=== PATIENT | female | born 1970 | race Caucasian/White ===

== ENCOUNTER 2020-09-16 14:44 | Outpatient (REF) | payer OTHER, SELFPAY ==
--- NOTE | ~2020-09-16 | MM_ITS ---
EXAMINATION: MM SCREENING DIGITAL BREAST TOMOSYNTHESIS, BILATERAL CLINICAL INFORMATION: Screening. Asymptomatic. The lifetime risk of breast cancer based on the Tyrer-Cuzick Model is 7%. COMPARISON: Mammography: 07/12/2019 and 02/14/2017. TECHNIQUE: Digital breast tomosynthesis is performed in both the craniocaudal and mediolateral oblique views along with computer-aided detection (CAD). Synthesized 2D images are generated from the tomosynthesis. FINDINGS: The breasts are extremely dense, which lowers the sensitivity of mammography (ACR BI-RADS breast composition Category d). There are no significant masses, abnormal calcifications, or other abnormalities. A questionable region of architectural distortion about the superior aspect deep left breast on mediolateral oblique projection is shown on tomosynthesis views to represent superimposition of fibroglandular tissue. MM/MM tomosynthesis screening BI IMPRESSION: There are no significant changes from prior study. ASSESSMENT: BI-RADS 1: Negative. RECOMMENDATION: Routine annual mammography screening. This patient's information was entered into a reminder system with a target due date for their next mammogram.
== END 2020-09-16 14:45 | disposition home or self-care (01) ==
LOC: HO.MAMMO 14:44
PROVIDERS: PCP Internal Medicine; Visit Provider Internal Medicine
DX: Z12.31 Encounter for screening mammogram for malignant neoplasm of breast (principal)
CPT/HCPCS: 77063; 77067

== ENCOUNTER 2021-02-23 10:07 | Outpatient (REF) | payer SELFPAY ==
[2021-02-23 10:55] LABS: Imm Gran Abs Auto 0.01 X10*3/uL (0.00-0.03); Imm Gran Pct Auto 0.2 % (0.0-0.4)
[2021-02-23 10:57] LABS: Basophils Percent Auto 0.2 % (0-2); Eosinophils Absolute Auto 0.2 X10*3/uL (0.0-0.4); Eosinophils Percent Auto 4.2 % (0-4); Hematocrit 38.7 % (37-47); Hemoglobin 11.8 g/dl (12.0-16.0); Lymphocytes Absolute Auto 1.1 X10*3/uL (1.2-4.9); Lymphocytes Percent Auto 22.4 % (20-40); Mean Corpuscular HGB Conc 30.5 g/dl (31.0-35.0); Mean Corpuscular Hemoglobin 20.4 pg (27.0-33.0); Mean Corpuscular Volume 66.8 fL (80-98); Mean Platelet Volume 9.7 fL (9.4-12.3); Monocytes Absolute Auto 0.4 X10*3/uL (0.1-1.2); Monocytes Percent Auto 7.3 % (2-11); Neutrophils Absolute Auto 3.3 X10*3/uL (2.0-8.3); Neutrophils Percent Auto 65.7 % (45-73); Platelet Count 203 X10*3/uL (160-400); Red Blood Count 5.79 X10*6/uL (4.20-5.50); Red Cell Distribution Width 15.3 % (11.0-16.0)
[2021-02-23 11:20] LABS: Alanine Aminotransferase 20 U/L (0-31); Albumin Level 4.3 g/dL (3.5-5.0); Alkaline Phosphatase 68 U/L (39-117); Anion Gap 10 (12-20); Aspartate Amino Transferase 18 U/L (5-31); Bilirubin Total 0.4 mg/dL (0.0-1.0); Blood Urea Nitrogen 8 mg/dL (9-16); Carbon Dioxide 27 mmol/L (22-29); Chloride 108 mmol/L (96-108); Cholesterol 183 mg/dL; Estimated Glomerular Filt Rate > 60; Glucose Fasting 104 mg/dL (60-99); HDL Cholesterol 52 mg/dL; LDL Cholesterol Calculated 117 mg/dl; Potassium 4.4 mmol/L (3.3-5.1); Sodium 141 mmol/L (135-145); Total Protein 7.3 g/dL (6.5-8.0); Triglycerides 71 mg/dL
[2021-02-23 11:41] LABS: Appearance Urine CLEAR; Color Urine YELLOW; Glucose Urine UA NEG (NEG); Leukocyte Esterase Urine NEG (NEG); Nitrite Urine NEG (NEG); Specific Gravity - Urine <= 1.005 (1.005-1.025); Urine Blood NEG (NEG); Urine Ketones NEG (NEG); Urine Protein NEG (NEG-TRACE)
[2021-02-23 11:42] LABS: TSH reflex Free T4 0.62 uIU/mL (0.32-4.0); Vitamin D 25-OH Total 31.1 ng/mL (>30)
[2021-02-23 11:58] LABS: Folate > 20.0 ng/mL (> or = 4.0); Vitamin B12 1158 pg/mL (200-900)
== END 2021-02-23 10:08 | disposition home or self-care (01) ==
LOC: HO.LAB 10:07
PROVIDERS: PCP Internal Medicine; Visit Provider Internal Medicine
DX: Z00.00 Encounter for general adult medical examination without abnormal findings (principal); R20.0 Anesthesia of skin; E55.9 Vitamin D deficiency, unspecified
CPT/HCPCS: 36415; 80053; 80061; 81003; 82306; 82607; 82746; 84443; 85025

== ENCOUNTER 2021-09-28 07:22 | Outpatient (REF) | payer OTHER, SELFPAY ==
--- NOTE | ~2021-09-28 | MM_ITS ---
EXAMINATION: MM SCREENING DIGITAL BREAST TOMOSYNTHESIS, BILATERAL CLINICAL INFORMATION: Screening. Asymptomatic. The lifetime risk of breast cancer based on the Tyrer-Cuzick Model is 7%. COMPARISON: Mammography: 09/16/2020, 07/12/2019, 02/14/2017 (baseline) TECHNIQUE: Digital breast tomosynthesis is performed in both the craniocaudal and mediolateral oblique views along with computer-aided detection (CAD). Synthesized 2D images are generated from the tomosynthesis. FINDINGS: The breasts are heterogeneously dense, which may obscure small masses (ACR BI-RADS breast composition Category c). There are no significant masses, abnormal calcifications, or other abnormalities. No developing density or architectural abnormality. The axilla are unremarkable. The skin contours are smooth. MM/MM tomosynthesis screening BI IMPRESSION: No mammographic evidence of malignancy. ASSESSMENT: BI-RADS 1: Negative RECOMMENDATION: Routine annual mammography screening. This patient's information was entered into a reminder system with a target due date for their next mammogram.
== END 2021-09-28 07:23 | disposition home or self-care (01) ==
LOC: HO.MAMMO 07:22
PROVIDERS: Visit Provider Internal Medicine
DX: Z12.31 Encounter for screening mammogram for malignant neoplasm of breast (principal)
CPT/HCPCS: 77063; 77067

== ENCOUNTER → 2022-01-18 08:34 | Outpatient (BNVA) | payer OTHER, SELFPAY | PROVIDERS: PCP Internal Medicine; Visit Provider Physician Assistant | DX: Z01.818 Encounter for other preprocedural examination (principal); K52.9 Noninfective gastroenteritis and colitis, unspecified; K59.09 Other constipation; D64.9 Anemia, unspecified | CPT/HCPCS: 99202 ==

== ENCOUNTER 2022-03-08 09:26 | Outpatient (REF) | payer OTHER, SELFPAY ==
[2022-03-08 09:40] LABS: MANUAL DIFF FLAG NO
[2022-03-08 10:09] LABS: Appearance Urine Clear; Color Urine Yellow; Glucose Urine UA Negative (Negative); Leukocyte Esterase Urine Trace (Negative); Nitrite Urine Negative (Negative); PH 7.5 (5.0-9.0); UMIC TRIGGER UACC YES; Urine Blood Negative (Negative); Urine Ketones Negative (Negative); Urine Protein Negative (Neg-Trace)
[2022-03-08 10:11] LABS: Bacteria Urine Trace (None Seen); Hyaline Casts Urine 0-2 /LPF (0-2); Squamous Epithelial Cell Urine 0-2 /HPF (0-2); WBC Urine 0-5 /HPF (0-5)
[2022-03-08 10:14] LABS: Basophils Percent Auto 0.6 % (0-2); Eosinophils Absolute Auto 0.3 X10*3/uL (0.0-0.4); Eosinophils Percent Auto 5.6 % (0-4); Hematocrit 38.6 % (37.0-47.0); Hemoglobin 11.8 g/dl (12.0-16.0); Imm Gran Abs Auto 0.01 X10*3/uL (0.00-0.03); Imm Gran Pct Auto 0.2 % (0.0-0.4); Lymphocytes Absolute Auto 1.2 X10*3/uL (1.2-4.9); Lymphocytes Percent Auto 24.9 % (20-40); Mean Corpuscular HGB Conc 30.6 g/dl (31.0-35.0); Mean Corpuscular Hemoglobin 20.8 pg (27.0-33.0); Mean Corpuscular Volume 68.1 fL (80.0-98.0); Mean Platelet Volume 10.4 fL (9.4-12.3); Monocytes Absolute Auto 0.3 X10*3/uL (0.1-1.2); Neutrophils Percent Auto 61.7 % (45-73); Platelet Count 270 X10*3/uL (160-400); Red Blood Count 5.67 X10*6/uL (4.20-5.50); Red Cell Distribution Width 15.8 % (11.0-16.0); White Blood Count 4.9 X10*3/uL (4.8-10.8)
[2022-03-08 10:22] LABS: Estimated Average Glucose 117 mg/dL; Hemoglobin A1c % 5.7 %
[2022-03-08 10:35] LABS: Alanine Aminotransferase 17 U/L (0-31); Albumin Level 4.3 g/dL (3.5-5.0); Alkaline Phosphatase 57 U/L (39-117); Anion Gap 12 (12-20); Aspartate Amino Transferase 19 U/L (5-31); Bilirubin Total 0.4 mg/dL (0.0-1.0); Blood Urea Nitrogen 9 mg/dL (9-16); Carbon Dioxide 27 mmol/L (22-29); Chloride 107 mmol/L (96-108); Cholesterol 156 mg/dL; Estimated Glomerular Filt Rate > 60; Glucose Fasting 104 mg/dL (60-99); HDL Cholesterol 52 mg/dL; Iron 88 mcg/dL (30-160); LDL Cholesterol Calculated 91 mg/dl; Percent Iron Saturation 29 % (15-50); Sodium 141 mmol/L (135-145); Total Iron Binding Capacity 301 mcg/dL (228-428); Total Protein 7.2 g/dL (6.5-8.0); Triglycerides 65 mg/dL; Unsaturated Iron Binding 213 ug/dL
[2022-03-08 10:59] LABS: TSH reflex Free T4 0.82 uIU/mL (0.32-4.0); Vitamin D 25-OH Total 26.6 ng/mL (>30)
== END 2022-03-08 09:27 | disposition home or self-care (01) ==
LOC: HO.LAB 09:26
PROVIDERS: PCP Internal Medicine; Visit Provider Internal Medicine
DX: Z00.00 Encounter for general adult medical examination without abnormal findings (principal); R73.01 Impaired fasting glucose; E78.00 Pure hypercholesterolemia, unspecified; E55.9 Vitamin D deficiency, unspecified; D50.9 Iron deficiency anemia, unspecified
CPT/HCPCS: 36415; 80053; 80061; 81001; 82306; 83036; 83540; 84443; 85025

== ENCOUNTER 2022-10-11 07:10 | Day surgery (SDC) | payer OTHER, SELFPAY ==
[2022-05-27 14:10] VITALS: BMI 24.2
--- NOTE | 2022-10-07 14:48 | HO.ANESPROP2 ---
Documented by User: Cydney Baeza NP 10/07/22 14:49 HPI - Anesthesia Eval Consult details Narrative: 51yo F for Upper Endoscopy and Colonoscopy PMFSH Active Problems Active Problems: All Active Problems (Updated 03/08/22 @ 09:20 by Tej Lanza MD) Constipation (Acute) Impaired fasting glucose (Acute) Iron deficiency anemia (Acute) Anemia (Acute) Chronic constipation (Acute) Colon cancer screening (Acute) Numbness of right hand (Acute) Annual physical exam (Acute) Amenorrhea (Acute) Past Medical History Medical History Amenorrhea Constipation Impaired fasting glucose Iron deficiency anemia Mammogram normal (~06/2019) Uterine myoma Family History Family History Other No significant family history Surgical History Surgical History Hx of myomectomy (~2014) Social History Social History Household Members Other:: Housing: House Alcohol intake: never Patient Tobacco Use Status: Never used Tobacco Second Hand Smoke Exposure: No Are you DNR?: No Advance Directives: No Advance Directives Information Provided: Yes Nutrition Risks: No Nutritional Risk service: No Current occupational status: employed 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 Cognitive needs: No Hearing needs: No Vision needs: Yes Meds Allergies Allergy/AdvReac Type Severity Reaction Status Date / Time No Known Allergies Allergy Verified 10/11/22 08:22 [No Known Allergies*] Home Medications Medication Instructions Recorded Confirmed Last Taken Type No Known Home Meds 10/11/22 10/11/22 Unknown History Exam Exam Date and Time: October 07, 2022 1448 Height,Weight and Vital Signs: Height 5 ft 6 in Weight 68.039 kg Pertinent Lab Results Pertinent Lab Results: Laboratory Tests 03/08/22 03/08/22 09:38 09:38 WBC 4.9 Hgb 11.8 L Hct 38.6 Plt Count 270 Sodium 141 Potassium 5.0 Chloride 107 Carbon Dioxide 27 BUN 9 Creatinine 0.72 Assessment and Plan Assessment Anesthesia Assessment: Chart Reviewed Documented by User: Mu Templeton MD 10/11/22 17:12 PMFSH Past Medical History Medical History Amenorrhea Constipation Impaired fasting glucose Iron deficiency anemia Mammogram normal (~06/2019) Uterine myoma Functional capacity: independent ambulation Family History Family History Other No significant family history Family history of problems with anesthesia: No Surgical History Surgical History Hx of myomectomy (~2014) History of Problems with Anesthesia: No Social History Social History Household Members Other:: Housing: House Alcohol intake: never Patient Tobacco Use Status: Never used Tobacco Second Hand Smoke Exposure: No Are you DNR?: No Advance Directives: No Advance Directives Information Provided: Yes Nutrition Risks: No Nutritional Risk service: No Current occupational status: employed 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 Cognitive needs: No Hearing needs: No Vision needs: Yes Meds Allergies Allergy/AdvReac Type Severity Reaction Status Date / Time No Known Allergies Allergy Verified 10/11/22 08:22 [No Known Allergies*] Home Medications Medication Instructions Recorded Confirmed Last Taken Type No Known Home Meds 10/11/22 10/11/22 Unknown History Exam Airway Mallampati Class: IV TM Dist: >3cm Neck ROM: Full Loose/Missing/Broken Teeth: Yes Assessment and Plan Assessment Anesthesia Assessment: Anesthesia Plan Discussed Final Anesthetic Review Family History of Problems with Anesthesia: No History of Problems with Anesthesia: No NPO: Yes ASA Class: II Final Preanesthetic Review: Meds/Allgs Chart Reviewed, Consent Obtained/Reviewed and Anes Risks/Benef Reviewed Patient Risk: Intermediate Procedure Risk: Intermediate Anesthetic Plan Anesthetic Plan: MAC: and Agree w/ Assess. and Plan Disposition: Standard PACU
[2022-10-07 15:39] VITALS: BMI 24.7
--- NOTE | 2022-10-11 07:34 | MHC.SHP ---
Pre-Procedural Eval Section A Date of Service: 10/11/22 The patient is an INPATIENT: No The History & Physical has been completed within 30 days and I have reviewed it.: No Section B Chief Complaint: screening, anemia,constipation, Relevant Family History (Specify if Yes): No Relevant Social History: None Present Medications: see Short Stay Collaborative assessment Medical History: Significant History (Amenorrhea Mammogram normal (~06/2019) Uterine myoma) History of Previous Operations: Relevant previous surgery/procedure and date(s) (History of myomectomy - 2014) Allergies: Allergies Allergy/AdvReac Type Severity Reaction Status Date / Time No Known Allergies Allergy Verified 03/08/22 09:00 [No Known Allergies*] Review of Systems Sugical H&P ROS: Negative: Constitution, Cardiovascular, Respiratory and Gastrointestinal Exam Surgical H&P Exam: Normal: Heart, Normal: Lungs, Normal: Extremities and Normal: Abdomen Plan Diagnosis/Plan: Unchanged I have reviewed the history and physical and performed a pertinent physical examination on my patient. No changes have occurred unless specified. Time Spent With Patient Time: Total time managing care of this patient today ____ minutes.
[2022-10-11 07:36] LABS: UPreg QC Valid YES; Urine Pregnancy NEGATIVE (NEGATIVE)
[2022-10-11 07:46] VITALS: BP 140/67; PULSE 65; RESP 18; TEMP 36.7; O2SAT 98
[2022-10-11] MEDS: Lactated Ringers 1,000 ML 100 ML IVCONT (07:48)
--- NOTE | 2022-10-11 08:34 | P.OP_ITS ---
Operative Note Operative Note Date of Service: 10/11/22 Narrative: FLEXIBLE TRANSORAL UPPER GASTROINTESTINAL ENDOSCOPY WITH BIOPSIES AND COLONOSCOPY TILL CECUM WITH BIOPSIES Pre-op diagnosis: screening, constipation, KEDAR Post-op diagnosis: Gastritis, colon polyps, diverticulosis, hemorrhoids? Endoscopist:? Gillian Hurt MD Anesthesia:?MAC UPPER ENDOSCOPY Consent: Indications for the procedure and potential complications of bleeding, perforation, reaction to medications and missed diagnosis were discussed with the patient and informed consent was obtained. Instrument: Olympus GIF H 190 mid size upper endoscope Monitoring: Vital signs and clinical assessment, continuous EKG monitoring, Pulse oximetry, Carbon Dioxide monitoring and blood pressure monitoring were done throughout the procedure. Procedure: The patient was placed in the left lateral decubitis position and pre-procedure medications were administered and a bite block was placed. The endoscope was inserted into the mouth and advanced under direct vision to the third part of duodenum. A careful inspection was made as the upper endoscope was withdrawn including a retroflexed examination of the proximal stomach; Findings and interventions are described below. Findings: Larynx: Normal Esophagus: GE junction at 36 cms. No esophagitis or Nelson's. Stomach: Moderate diffuse gastric erythema. Biopsies were obtained from the antr um and gastric body. Grade 2 flap valve on retroflexed examination of the cardia. Duodenum: Normal bulb and descending duodenum. Biopsies were obtained from 3rd part of duodenum to check for celiac sprue. Intervention: Biopsies as noted above COLONOSCOPY PROCEDURE NOTE Consent: Indications for the procedure and potential complications of bleeding, perforation, reaction to medications and missed diagnosis were discussed with the patient and informed consent was obtained. Instrument: Olympus PCF H 190 L variable stiffness pediatric colonoscope Monitoring: Vital signs and clinical assessment, intermittent blood pressure monitoring, continuous EKG monitoring, Pulse oximetry and Carbon Dioxide monitoring were done throughout the procedure. Colon withdrawl time was 12 minutes. Procedure: The patient was placed in the left lateral decubitis position and pre-procedure medications were administered. After a digital rectal examination of the ano-rectum, the video colonoscope was inserted into the rectum and advanced through the colon to the cecum. The colonoscope was slowly withdrawn in a retrograde panoramic fashion and the colon mucosa was carefully examined including a retroflexed view of the rectum. Findings and interventions are described below. Procedure Difficulty: : Without difficulty Findings: Terminal Ileum: Not evaluated Cecum: Normal Ascending Colon: Normal Transverse Colon: Normal Descending Colon: A few 4-7 mm diminutive appearing polyps in the left colon - two removed by cold biopsy Sigmoid Colon: Moderate diverticulosis Rectum: Normal Ano-rectum: Moderate internal hemorrhoids Colon preparation: Excellent Impression and Post Procedure Diagnosis: Endoscopy Findings: STOMACH: Moderate diffuse gastritis DUODENUM: Normal - biopsied to check for celiac sprue Colonoscopy Findings: Two diminutive appearing polyps removed Moderate diverticulosis seen in the sigmoid colon Moderate hemorrhoids on retroflexed exam. Plan: Await pathology results Patient has an appointment on 10/25/22 in the [facility] with ERAN Rodney . Repeat Colonoscopy interval based on path results - in 5 years if polyps are adenomatous and 10 years if polyps are hyperplastic. Above findings were reviewed with the patient and colon polyps and diverticulosis handouts were given in the discharge area BIOPSIES SHOWED: A.? Small bowel, biopsy:? Duodenal mucosa within normal limits; negative for celiac disease. B.? Stomach, antrum, biopsy: - Antral-type mucosa with moderate chronic active inflammation. - Rare forms suspicious for H pylori identified. C.? Stomach, body, biopsy: - Oxyntic mucosa with moderate chronic, focally active, inflammation. - Positive for H pylori. D.? Colon, descending, polypectomies (2):? Hyperplastic mucosal polyps.
[2022-10-11 09:18] VITALS: BP 112/68; PULSE 70; RESP 16; TEMP 36.6; O2SAT 97
[2022-10-11 09:33] VITALS: BP 131/77; PULSE 76; RESP 16; TEMP 36.6; O2SAT 99
== END 2022-10-11 10:01 | disposition home or self-care (01) ==
PROVIDERS: Anesthesiology; PCP Internal Medicine; Visit Provider Internal Medicine Gastroenterology
PROC: (CPT 45380; principal; 2022-10-11 08:30)
DX: Z12.11 Encounter for screening for malignant neoplasm of colon (principal); K63.5 Polyp of colon; K57.30 Diverticulosis of large intestine without perforation or abscess without bleeding; K64.8 Other hemorrhoids; K59.09 Other constipation; D50.9 Iron deficiency anemia, unspecified; K29.50 Unspecified chronic gastritis without bleeding; B96.81 Helicobacter pylori [H. pylori] as the cause of diseases classified elsewhere
CPT/HCPCS: 45380; 43239; 81025; 88305; 88342

== ENCOUNTER → 2022-10-25 07:37 | Outpatient (BNVA) | payer OTHER, SELFPAY | PROVIDERS: PCP Internal Medicine; Referring Provider Internal Medicine; Visit Provider Physician Assistant | DX: K29.70 Gastritis, unspecified, without bleeding (principal); B96.81 Helicobacter pylori [H. pylori] as the cause of diseases classified elsewhere; K63.5 Polyp of colon; K57.30 Diverticulosis of large intestine without perforation or abscess without bleeding | CPT/HCPCS: 99212 ==

== ENCOUNTER 2022-11-15 10:13 | Outpatient (REF) | payer OTHER, SELFPAY ==
--- NOTE | ~2022-11-15 | MM_ITS ---
EXAMINATION: MM SCREENING DIGITAL BREAST TOMOSYNTHESIS, BILATERAL CLINICAL INFORMATION: Screening. Asymptomatic. The lifetime risk of breast cancer based on the Tyrer-Cuzick Model is 7%. COMPARISON: Mammography: 09/28/2021, 09/16/2020, 07/12/2019 TECHNIQUE: Digital breast tomosynthesis is performed in both the craniocaudal and mediolateral oblique views along with computer-aided detection (CAD). Synthesized 2D images are generated from the tomosynthesis. FINDINGS: The breasts are heterogeneously dense, which may obscure small masses (ACR BI-RADS breast composition Category c). There are no significant masses, abnormal calcifications, or other abnormalities. Parenchymal pattern is similar to prior studies. There is no developing density or architectural abnormality. The axilla and skin contours are unremarkable. No significant changes. MM/MM tomosynthesis screening BI IMPRESSION: No mammographic evidence of malignancy. ASSESSMENT: BI-RADS 1: Negative RECOMMENDATION: Routine annual mammography screening. This patient's information was entered into a reminder system with a target due date for their next mammogram.
== END 2022-11-15 10:14 | disposition home or self-care (01) ==
LOC: HO.MAMMO 10:13
PROVIDERS: PCP Internal Medicine; Visit Provider Internal Medicine
DX: Z12.31 Encounter for screening mammogram for malignant neoplasm of breast (principal)
CPT/HCPCS: 77063; 77067

== ENCOUNTER 2022-11-29 10:12 | Outpatient (AMB) | payer OTHER, SELFPAY ==
--- NOTE | 2022-11-29 11:25 | AM.OFFVISNUR ---
Intake Intake Visit Reasons: test to cure Allergies No Known Allergies [No Known Allergies*] Allergy (Verified 10/25/22 07:47) Nursing Note Patient presents for collection of?H?Pylori?breath test. Patient has been fasting for 1 hour (nothing to eat, drink, no chewing gum or smoking) has not taken any antacid medication for at least 2 weeks and has no allergies to artificial sweeteners.?? Coding Level of Care Code Established Pt Est Pt Level 1 (18480) Patient Type Established Medical Decision Making Straight Forward Diagnoses Assessment & Plan Assessment & Plan Plan Patient presents for collection of?H?Pylori?breath test. Patient has been fasting for 1 hour (nothing to eat, drink, no chewing gum or smoking) has not taken any antacid medication for at least 2 weeks and has no allergies to artificial sweeteners.???This test checks for an overgrowth of bacteria in your stomach. We all have bacteria but some may have more than others. It is treatable. if the test comes back negative there is nothing else to do. If the test result is positive we will treat you with 2 antibiotics and a medication to decrease the acid in your stomach (PPI) for 2 weeks. Two weeks after you have completed the treatment we will retest you to make sure the overgrowth has resolved. Patient Instructions: Process for specimen collection and reason for testing was explained to the patient. Specimen collection. Patient instructed to take a deep breath and then exhale into the blue bag, filling it up as much as possible. Patient instructed to drink a mixture of water and the artificial sweetener with a straw. A 15 minute wait period was observed. Patient instructed to take a deep breath and then exhale into the pink bag, filling it up as much as possible.??
== END 2022-11-29 11:25 | disposition home or self-care (01) ==
PROVIDERS: PCP Internal Medicine; Visit Provider Physician Assistant
DX: Z00.00 Encounter for general adult medical examination without abnormal findings (principal)

== ENCOUNTER → 2022-11-29 10:12 | Outpatient (BNVA) | payer OTHER, SELFPAY | PROVIDERS: PCP Internal Medicine; Visit Provider Physician Assistant | DX: Z11.0 Encounter for screening for intestinal infectious diseases (principal) | CPT/HCPCS: 99211 ==

== ENCOUNTER 2022-11-29 15:29 | Outpatient (REF) | payer OTHER, SELFPAY ==
[2022-12-05 12:41] LABS: H Pylori Breath Test Negative (Negative)
== END 2022-11-29 15:30 | disposition home or self-care (01) ==
LOC: HO.LNP 15:29
PROVIDERS: Visit Provider Physician Assistant
DX: A04.8 Other specified bacterial intestinal infections (principal)
CPT/HCPCS: 83013

== ENCOUNTER 2023-03-14 09:29 | Outpatient (AMB) | payer OTHER, SELFPAY ==
[2023-03-14 09:34] VITALS: BP 120/82; PULSE 66; O2SAT 99; BMI 25.7
--- NOTE | 2023-03-14 09:34 | MHC.PC.OV ---
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 Accompanied by: Self / Same As Patient Allergies No Known Allergies [No Known Allergies*] Allergy (Verified 03/14/23 09:56) Medication List - Last Reconciled 03/14/23 by Tej Lanza MD Tobacco use date assessed: 03/14/23 Dental Screening Dental Screen Date: 03/14/23 Did you have a dental visit in the last 12 months?: No Did you have a dental problem in the last 6 months where you did not have access to dental care?: No Was dental information given to patient?: No HPI annual PE HPI Details Patient comes in today for her annual physical examination States that she feels okay except for recurrent numbness of both hands and feet, which she states she has been experiencing for the past 6 months or so She denies any wrist or joint pains; denies any weakness of her hands or feet, and states that the above symptoms occur randomly throughout the day Reports also occasional brief spells of mild weakness recently and noticed that she would feel better as soon as she ate some chocolate - is wondering if she has any problems with her blood sugar and would like to get some labs done to check this out further She denies any headaches or dizziness Denies any chest pains, no SOB No nausea/vomiting, no abdominal pain No change in bowel habits noted Denies any acute urinary symptoms Had her screening colonoscopy done by Dr. Hurt on 10/11/2022 - (+) hyperplastic polyps; recommend repeat colonoscopy in 10 years although she states that her younger brother was just diagnosed with colon cancer at 46 y/o a few months ago (mid-2022) so is wondering if she will need to get a repeat colonoscopy sooner than 10 years due to (+) family Hx She did test positive for H. pylori back in September 2022 on her EGD with Bx and she was Tx with the H. pylori regimen Had her annual mammogram last done in October 2022 Has not had steel box toe inserter exam/pap smear done in a few years now Would also like to get her flu shot today Adds that she has not had her menstrual period in about 3 months now - is probably going into menopause soon [facility] Medical History (Updated 03/14/23 @ 10:35 by Tej Lanza MD) Overweight (BMI 25.0-29.9) Helicobacter pylori gastritis Constipation Impaired fasting glucose Iron deficiency anemia Mammogram normal (~06/2019) Uterine myoma Amenorrhea Surgical History (Updated 03/14/23 @ 10:16 by Tej Lanza MD) History of esophagogastroduodenoscopy (EGD) Hx of colonoscopy Hx of myomectomy (~2014) Family History Other No significant family history Social History Household Members Other:: Housing: House Alcohol intake: never Patient Tobacco Use Status: Never used Tobacco Second Hand Smoke Exposure: No service: No Current occupational status: employed 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 1. Little interest or pleasure in doing things: not at all 2. Feeling down, depressed, or hopeless: not at all 3. Trouble falling or staying asleep, or sleeping too much: not at all 4. Feeling tired or having little energy: not at all 5. Poor appetite or overeating: not at all 6. Feeling bad about yourself - or that you are a failure or have let yourself or your family down: not at all 7. Trouble concentrating on things, such as reading the newspaper or watching television: not at all 8. Moving or speaking so slowly that other people could have noticed. Or the opposite - being so fidgety or restless that you have been moving around a lot more than usual: not at all 9. Thoughts that you would be better off or of hurting yourself in some way: not at all Total score: 0 Depression Screening Interpretation: Negative Depression Screening Done: Yes 57464 - PHQ-9 Billing: Yes Source: Developed by Drs. Collin Mireles, Rodney Chawla and colleagues, with an educational alma from [employer]. Thrive Questionnaire Date Thrive assessed: 03/14/23 I am a: Patient What is your living situation today?: I have a steady place to live Within the past 12 months, did the food you bought not last and you didn't have the money to get more?: Never true Within the past 12 months, did you worry whether your food would run out before you got money to buy more?: Never true Do you have trouble paying for medicines?: No Do you have trouble getting transportation to medical appointments?: No Do you have trouble paying your heating and electricity bill?: No Do you have trouble taking care of your child, family member or friend?: No Do you have trouble with day-to-day activities such as bathing, preparing meals, shopping, managing finances, etc.?: No Are you currently unemployed and looking for a job?: No Are you interested in more education?: No Please select the resources that you would like help with: None Currently or been in a relationship where the following occur: no concerns reported AUDIT C Alcohol Use Questionnaire (AUDIT-C) 1. How often do you have a drink containing alcohol?: Never 3. How often do you have six or more drinks on one occasion?: Never Total Score: 0 Score Reviewed/Action Taken: Yes SIMIN-7 AMB Questionnaire SIMIN-7 Date SIMIN - 7 assessed: 03/14/23 Feeling nervous, anxious, or on edge: 0 = Not at all Not being able to stop or control worryin = Not at all Worrying too much about different things: 0 = Not at all Trouble relaxin = Not at all Being so restless that it is hard to sit still: 0 = Not at all Becoming easily annoyed or irritable: 0 = Not at all Feeling afraid as if something awful might happen: 0 = Not at all Total SIMIN-7 score (0-4 normal; 5-9 mild; 10-14 moderate; 15-21 severe): 0 Source: Developed by Drs. Collin Mireles, Rodney Chawla and colleagues, with an educational alma from [employer]. Review of Systems Const Denies chills, Denies fatigue, Denies fever(s), Denies headache(s), Denies malaise and Denies weakness Eyes Denies blurry vision, Denies change in vision, Denies irritation and Denies itchy eyes ENT Denies dysphagia, Denies dizziness, Denies otalgia, Denies headache(s), Denies nasal congestion, Denies neck pain, Denies odynophagia, Denies sinus pain and Denies sore throat Card Denies chest pain, Denies rapid heart rate, Denies irregular heart rhythm, Denies palpitations and Denies dyspnea Resp Denies chest congestion, Denies cough, Denies dyspnea and Denies wheezing GI Denies abdominal pain, Denies bloating, Reports constipation (at times), Denies dysphagia, Denies heartburn, Denies diarrhea, Denies nausea, Denies odynophagia and Denies vomiting Denies hematuria, Denies urinary frequency, Denies dysuria, Denies urinary incontinence and Denies urinary urgency Musc Denies back pain, Denies arthralgias, Denies joint swelling, Denies muscle weakness and Denies neck pain Skin/Breast Denies breast pain, Denies breast mass, Denies change in pigmentation, Denies lesions, Denies rash and Denies unusual bruising Neuro Denies dizziness, Denies headache(s), Reports paresthesias (recurrent, in both hands and feet for past few months) and Denies weakness Psych Denies anxiety and Denies depression Endo Denies fatigue and Denies palpitations Cirilo/Lymph Denies easy bruising Aller/Immun Denies itchy eyes and Denies wheezing Physical exam (Primary Care) Vital Signs: Last Vital Signs Pulse 66 03/14/23 09:34 BP 120/82 03/14/23 09:34 Pulse Ox 99 03/14/23 09:34 Oxygen Delivery Method Room Air 03/14/23 09:34 BMI result Body Mass Index 25.7 Tobacco/Smoking Status: Tobacco use Status Tobacco use date assessed 03/14/23 03/14/23 09:38 Patient Tobacco Use Status Never used Tobacco 03/14/23 09:38 PHQ-9: PHQ-9 Score PHQ-9: Total score 0 03/14/23 09:44 Depression Screening Interpretation: Negative Thrive Assessment: Date of Thrive Assessment Date Thrive assessed 03/14/23 03/14/23 09:38 Currently or been in a relationship where the following occur: no concerns reported Const General: no acute distress, alert and awake Orientation/consciousness: patient oriented x3 HENMT Head: Yes normocephalic and Yes atraumatic Ears: external ears normal, TM's normal bilaterally and EAC's normal General nose exam: No nasal discharge present Face and sinus: Yes normal facial exam and Yes sinuses nontender Teeth and gingiva: dentition normal Throat: Yes posterior oropharynx normal and Yes tonsils normal (no TP congestion) Eyes Eyelids: Yes eyelids normal Conjunctivae: conjunctivae normal Pupils: Equal, round and reactive pupils present EOM: EOMs intact bilaterally Neck Neck: Yes no lymphadenopathy and Yes supple Thyroid: Thyroid normal Resp Auscultation: clear to auscultation bilaterally, no rales and no wheezes Cardio Rate: regular rate Rhythm: regular rhythm Heart sounds: no murmurs GI Palpation (GI): Soft to palpation, nontender and No hepatosplenomegaly present Auscultation: normal bowel sounds General: Yes no CVA tenderness Back/Spine/Pelvis Back: no CVA tenderness Thoracic/Lumbar Spine: thoracic and lumbar spine normal to inspection Skin Lesions: no lesions Rashes: no rashes Neuro General: patient oriented x3, moves all extremities, no focal motor deficits and CN's II-XI intact bilaterally Cranial nerves: Yes Equal, round and reactive pupils present Cognition (Neuro): normal cognition Gait exam (Neuro): Normal gait present Extrem General: Yes no clubbing, cyanosis or edema Office Procedures Flu Questionnaire Does the patient have a severe egg allergy?: No Does the patient have severe life threatening allergies?: No Does the patient have a fever or illness today?: No Has the patient ever had Guillain-[place] Syndrome?: No Has the patient ever had any past reaction to a flu shot?: No Immunizations flu vacc [id number] 6mos up(PF) 60 mcg(15 mcgx4)/0.5 mL IM syringe Performing Provider: Tje Lanza MD Performing Location: [facility] Administered by: Carolyne Barth on 03/14/23 09:44 Dose Route Admin Location Dispensed Lot Number Expiration Date NDC Director Corporate Sales 0.5 mL IM Left Deltoid 0.5 mL [id number] 11/20/23 21912-456-74 [employer] VIS Given Date VIS Provided VIS Publication Date 03/14/23 Single Vaccine 20 Eligibility Eligibility Date Funding Source Not [facility] Eligible 03/14/23 Private Assessment and Plan Assessment & Plan (1) Annual physical exam: Code(s): Z00.00 - Encounter for general adult medical examination without abnormal findings Plan: Check labs She is up-to-date with her colon cancer screening and breast cancer screening/mammogram Will be referred again to [facility] for her annual pap smear and steel box toe inserter exam - has not had one done in years (2) Paresthesia: Code(s): R20.2 - Paresthesia of skin Plan: (+) etiology Will send her for some additional labs MICHAEL for further evaluation (3) Iron deficiency anemia: Code(s): D50.9 - Iron deficiency anemia, unspecified Qualifiers: Iron deficiency anemia type: unspecified iron deficiency Qualified Code(s): D50.9 - Iron deficiency anemia, unspecified Plan: Will recheck her CBC for follow up (4) Impaired fasting glucose: Code(s): R73.01 - Impaired fasting glucose Plan: Reinforced low calorie diet Will recheck her FBS and HgbA1c for follow up (5) Constipation: Code(s): K59.00 - Constipation, unspecified Qualifiers: Constipation type: unspecified constipation type Qualified Code(s): K59.00 - Constipation, unspecified Plan: Encouraged increased oral fluids and dietary fiber is advised to start back on Miralax 17 gm QD if she is starting to get constipated again - reminded that this needs to be taken daily for it to be effective (6) Helicobacter pylori gastritis: Comment: S/P Tx in October 2022 Code(s): K29.70 - Gastritis, unspecified, without bleeding; B96.81 - Helicobacter pylori [H. pylori] as the cause of diseases classified elsewhere Plan: States that she's had no GI symptoms other than constipation since she had her Tx for H. pylori a few months ago (7) Overweight (BMI 25.0-29.9): Code(s): E66.3 - Overweight Plan: Reinforced diet/exercise as tolerated/lose weight (8) Cervical cancer screening: Code(s): Z12.4 - Encounter for screening for malignant neoplasm of cervix Plan: Will refer her to [facility] for her annual pap smear and steel box toe inserter exam Plan Flu vaccine given today To return in 1 year for her next annual physical examination Orders: Orders Comprehensive [place]. Panel Fast Today R20.2 - Paresthesia of skin, Z00.00 - Encounter for general adult medical examination without abnormal findings UA CC w/rflx Micro + Cult Today R20.2 - Paresthesia of skin, R30.0 - Dysuria, Z00.00 - Encounter for general adult medical examination without abnormal findings Vitamin D 25-OH Total Today E55.9 - Vitamin D deficiency, unspecified, R20.2 - Paresthesia of skin, Z00.00 - Encounter for general adult medical examination without abnormal findings Vitamin B12 and Folate Today R20.2 - Paresthesia of skin C Reactive Protein Today R20.2 - Paresthesia of skin Influenza [id number] Immunization Today Z23 - Encounter for immunization Complete Blood Count Auto Diff Today D50.9 - Iron deficiency anemia, unspecified, R20.2 - Paresthesia of skin, Z00.00 - Encounter for general adult medical examination without abnormal findings Lipid Panel Today E78.00 - Pure hypercholesterolemia, unspecified, R20.2 - Paresthesia of skin, Z00.00 - Encounter for general adult medical examination without abnormal findings TSH reflex Free T4 Today R20.2 - Paresthesia of skin, Z00.00 - Encounter for general adult medical examination without abnormal findings Magnesium Today E83.42 - Hypomagnesemia, R20.2 - Paresthesia of skin Insulin Today E16.2 - Hypoglycemia, unspecified, R20.2 - Paresthesia of skin Hemoglobin A1c Today R73.01 - Impaired fasting glucose Lyme IgG/IgM w/reflex to WB Today R20.2 - Paresthesia of skin, W57.XXXA - Bitten or stung by nonvenomous insect and other nonvenomous arthropods, initial encounter Erythrocyte Sedimentation Rate Today R20.2 - Paresthesia of skin Referrals REGULATORY AUDITOR Referral Z12.4 - Encounter for screening for malignant neoplasm of cervix Coding Level of Care Code Est Pt Prev Care 40-64y(28261) Diagnoses Annual physical exam Z00.00 Paresthesia R20.2 Iron deficiency anemia, unspecified iron deficiency anemia type D50.9 Iron deficiency anemia type: unspecified iron deficiency Impaired fasting glucose R73.01 Constipation, unspecified constipation type K59.00 Constipation type: unspecified constipation type Helicobacter pylori gastritis K29.70; B96.81 Overweight (BMI 25.0-29.9) E66.3 Cervical cancer screening Z12.4
== END 2023-03-14 10:26 | disposition home or self-care (01) ==
PROVIDERS: Visit Provider Internal Medicine
DX: Z00.00 Encounter for general adult medical examination without abnormal findings (principal); R20.2 Paresthesia of skin; D50.9 Iron deficiency anemia, unspecified; R73.01 Impaired fasting glucose; Z23 Encounter for immunization; K59.00 Constipation, unspecified; K29.70 Gastritis, unspecified, without bleeding; B96.81 Helicobacter pylori [H. pylori] as the cause of diseases classified elsewhere; E66.3 Overweight
CPT/HCPCS: 90471; 90686; 99396

== ENCOUNTER 2023-03-14 10:31 | Outpatient (REF) | payer OTHER, SELFPAY ==
[2023-03-14 10:47] LABS: MANUAL DIFF FLAG NO
[2023-03-14 11:12] LABS: Basophils Percent Auto 0.6 % (0-2); Eosinophils Absolute Auto 0.3 X10*3/uL (0.0-0.4); Eosinophils Percent Auto 5.5 % (0-4); Hematocrit 41.8 % (37.0-47.0); Hemoglobin 12.7 g/dl (12.0-16.0); Imm Gran Abs Auto 0.02 X10*3/uL (0.00-0.03); Imm Gran Pct Auto 0.4 % (0.0-0.4); Lymphocytes Absolute Auto 1.2 X10*3/uL (1.2-4.9); Lymphocytes Percent Auto 24.6 % (20-40); Mean Corpuscular HGB Conc 30.4 g/dl (31.0-35.0); Mean Corpuscular Hemoglobin 20.6 pg (27.0-33.0); Mean Corpuscular Volume 67.7 fL (80.0-98.0); Mean Platelet Volume 10.4 fL (9.4-12.3); Monocytes Absolute Auto 0.3 X10*3/uL (0.1-1.2); Monocytes Percent Auto 6.8 % (2-11); Neutrophils Absolute Auto 2.9 x10*3/uL (2.0-8.3); Neutrophils Percent Auto 62.1 % (45-73); Platelet Count 218 X10*3/uL (160-400); Red Blood Count 6.17 X10*6/uL (4.20-5.50); White Blood Count 4.7 X10*3/uL (4.8-10.8)
[2023-03-14 11:22] LABS: Estimated Average Glucose 120 mg/dL; Hemoglobin A1c % 5.8 % (<6.0)
[2023-03-14 11:45] LABS: Alanine Aminotransferase 26 U/L (0-31); Albumin Level 4.4 g/dL (3.5-5.0); Alkaline Phosphatase 68 U/L (39-117); Anion Gap 11 (12-20); Aspartate Amino Transferase 19 U/L (5-31); Bilirubin Total 0.4 mg/dL (0.0-1.0); Blood Urea Nitrogen 9 mg/dL (9-16); C Reactive Protein < 0.10 mg/dL (< or = 0.50); Calcium 9.4 mg/dL (8.4-10.2); Carbon Dioxide 28 mmol/L (22-29); Chloride 107 mmol/L (96-108); Cholesterol 221 mg/dL (<200); Estimated Glomerular Filt Rate > 60; Glucose Fasting 107 mg/dL (60-99); HDL Cholesterol 62 mg/dL (>40); LDL Cholesterol Calculated 133 mg/dL (<100); Magnesium 2.1 mg/dL (1.6-2.6); Potassium 4.2 mmol/L (3.3-5.1); Sodium 142 mmol/L (135-145); Total Protein 7.7 g/dL (6.5-8.0); Triglycerides 134 mg/dL (<150)
[2023-03-14 11:46] LABS: Erythrocyte Sedimentation Rate 2 MM/HR (0-20)
[2023-03-14 12:08] LABS: Insulin 9 uU/mL (2-29); TSH reflex Free T4 1.08 uIU/mL (0.32-4.0); Vitamin D 25-OH Total 32.1 ng/mL (>30)
[2023-03-14 12:11] LABS: Folate 15.3 ng/mL (> or = 4.0); Vitamin B12 898 pg/mL (200-900)
[2023-03-14 14:11] LABS: Appearance Urine Clear; Color Urine Yellow; Glucose Urine UA Negative (Negative); Leukocyte Esterase Urine Trace (Negative); Nitrite Urine Negative (Negative); PH 6.5 (5.0-9.0); Specific Gravity - Urine <= 1.005 (1.005-1.025); UMIC TRIGGER UACC YES; Urine Blood Negative (Negative); Urine Ketones Negative (Negative); Urine Protein Negative (Neg-Trace)
[2023-03-14 14:18] LABS: Bacteria Urine None Seen (None Seen); Hyaline Casts Urine 0-2 /LPF (0-2); Squamous Epithelial Cell Urine 0-2 /HPF (0-2); WBC Urine 0-5 /HPF (0-5)
[2023-03-17 13:04] LABS: 18 KD (IgG) Band NON-REACTIVE; 23 KD (IgG) Band NON-REACTIVE; 23 KD (IgM) Band NON-REACTIVE; 28 KD (IgG) Band NON-REACTIVE; 30 KD (IgG) Band NON-REACTIVE; 39 KD (IgM) Band NON-REACTIVE; 39KD (IgG) Band NON-REACTIVE; 41 KD (IgM) Band NON-REACTIVE; 41KD (IgG) Band NON-REACTIVE; 45 KD (IgG) Band NON-REACTIVE; 58 KD (IgG) Band NON-REACTIVE; 66 KD (IgG) Band NON-REACTIVE; 93 KD (IgG) Band NON-REACTIVE; Lyme IgG Blot Interp NEGATIVE (NEGATIVE); Lyme IgM Blot Interp NEGATIVE (NEGATIVE)
[2023-03-18 13:58] LABS: Lyme Abs Screen POSITIVE
== END 2023-03-14 10:32 | disposition home or self-care (01) ==
LOC: HO.LAB 10:31
PROVIDERS: PCP Internal Medicine; Visit Provider Internal Medicine
DX: Z00.00 Encounter for general adult medical examination without abnormal findings (principal); R20.2 Paresthesia of skin; D50.9 Iron deficiency anemia, unspecified; R73.01 Impaired fasting glucose; E16.2 Hypoglycemia, unspecified; E78.00 Pure hypercholesterolemia, unspecified; T14.8XXA Other injury of unspecified body region, initial encounter; W57.XXXA Bitten or stung by nonvenomous insect and other nonvenomous arthropods, initial encounter; E83.42 Hypomagnesemia; E55.9 Vitamin D deficiency, unspecified; Y93.9 Activity, unspecified; Y92.9 Unspecified place or not applicable; Y99.9 Unspecified external cause status
CPT/HCPCS: 36415; 80053; 80061; 81001; 81003; 82306; 82607; 82746; 83036; 83525; 83735; 84443; 85025; 85652; 86140; 86617; 86618

== ENCOUNTER 2023-04-26 10:39 | Outpatient (AMB) | payer OTHER, SELFPAY ==
[2023-04-26 10:41] VITALS: BP 138/88; PULSE 76; O2SAT 99; BMI 25.9
--- NOTE | 2023-04-26 10:41 | A.OFFPC_ITS ---
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 Accompanied by: Self / Same As Patient Allergies No Known Allergies [No Known Allergies*] Allergy (Verified 04/26/23 11:02) Medication List - Last Reconciled 04/26/23 by Tej Lanza MD omeprazole 20 mg PO DAILY Tobacco use date assessed: 04/26/23 Dental Screening Dental Screen Date: 04/26/23 Did you have a dental visit in the last 12 months?: No Did you have a dental problem in the last 6 months where you did not have access to dental care?: No Was dental information given to patient?: No HPI Abdominal pain, gets worst after eating HPI Details Patient comes in today complaining of recurrent epigastric pain for the past 1 month Has noticed that her epigastric pain feels worse when she is hungry and also immediately after eating States that she starting taking some OTC Omeprazole 20 mg that was left over from her previous Rx (when she was prescribed her H. pylori Tx regimen) for the past 3 weeks and is recently starting to notice some improvement in her symptoms States that she has not woken up in the middle of the night from stomach pain and has not noticed any blood or any other abnormalities in her stool lately She denies any nausea or vomiting and has had no changes in her bowel habits Admits that she was drinking more coffee than usual recently and also started drinking some red wine at night before her symptoms started - states that she has stopped drinking coffee and red wine since She denies any fever, headaches or dizziness Denies any chest pains, no SOB noted PFSH Medical History Overweight (BMI 25.0-29.9) Helicobacter pylori gastritis Constipation Impaired fasting glucose Iron deficiency anemia Mammogram normal (~06/2019) Uterine myoma Amenorrhea Surgical History History of esophagogastroduodenoscopy (EGD) Hx of colonoscopy Hx of myomectomy (~2014) Family History Other No significant family history Social History Household Members Other:: Housing: House Alcohol intake: never Patient Tobacco Use Status: Never used Tobacco e-Cigarette/Vaping Use: Never Used Second Hand Smoke Exposure: No service: No Current occupational status: employed 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 1. Little interest or pleasure in doing things: not at all 2. Feeling down, depressed, or hopeless: not at all 3. Trouble falling or staying asleep, or sleeping too much: not at all 4. Feeling tired or having little energy: not at all 5. Poor appetite or overeating: not at all 6. Feeling bad about yourself - or that you are a failure or have let yourself or your family down: not at all 7. Trouble concentrating on things, such as reading the newspaper or watching television: not at all 8. Moving or speaking so slowly that other people could have noticed. Or the opposite - being so fidgety or restless that you have been moving around a lot more than usual: not at all 9. Thoughts that you would be better off or of hurting yourself in some way: not at all Total score: 0 Depression Screening Interpretation: Negative Depression Screening Done: Yes 84482 - PHQ-9 Billing: Yes Source: Developed by Drs. Collin Mireles, Nini Hammer, Rodney Hollingsworth and colleagues, with an educational alma from [employer]. Thrive Questionnaire Date Thrive assessed: 04/26/23 I am a: Patient What is your living situation today?: I have a steady place to live Within the past 12 months, did the food you bought not last and you didn't have the money to get more?: Never true Within the past 12 months, did you worry whether your food would run out before you got money to buy more?: Never true Do you have trouble paying for medicines?: No Do you have trouble getting transportation to medical appointments?: No Do you have trouble paying your heating and electricity bill?: No Do you have trouble taking care of your child, family member or friend?: No Do you have trouble with day-to-day activities such as bathing, preparing meals, shopping, managing finances, etc.?: No Are you currently unemployed and looking for a job?: No Are you interested in more education?: No Please select the resources that you would like help with: None Currently or been in a relationship where the following occur: no concerns reported AUDIT C Alcohol Use Questionnaire (AUDIT-C) 1. How often do you have a drink containing alcohol?: Never 3. How often do you have six or more drinks on one occasion?: Never Total Score: 0 Score Reviewed/Action Taken: Yes SIMIN-7 AMB Questionnaire SIMIN-7 Date SIMIN - 7 assessed: 04/26/23 Feeling nervous, anxious, or on edge: 0 = Not at all Not being able to stop or control worryin = Not at all Worrying too much about different things: 0 = Not at all Trouble relaxin = Not at all Being so restless that it is hard to sit still: 0 = Not at all Becoming easily annoyed or irritable: 0 = Not at all Feeling afraid as if something awful might happen: 0 = Not at all Total SIMIN-7 score (0-4 normal; 5-9 mild; 10-14 moderate; 15-21 severe): 0 Source: Developed by Drs. Collin Mireles, Nini Hammer, Rodney Hollignsworth and colleagues, with an educational alma from [employer]. Review of Systems Const Denies fatigue, Denies fever(s) and Denies headache(s) ENT Denies dysphagia, Denies dizziness, Denies headache(s), Denies neck pain, Denies odynophagia and Denies sore throat Card Denies chest pain, Denies palpitations and Denies dyspnea Resp Denies cough and Denies dyspnea GI Reports abdominal pain (on and off, over the epigastric area - see HPI), Denies hematochezia, Denies constipation, Denies dysphagia, Denies heartburn, Denies diarrhea, Denies nausea, Denies odynophagia and Denies vomiting Denies difficulty voiding, Denies nocturia and Denies dysuria Musc Denies neck pain Neuro Denies dizziness and Denies headache(s) Endo Denies fatigue and Denies palpitations Physical exam (Primary Care) Vital Signs: Last Vital Signs Pulse 76 04/26/23 10:41 BP 138/88 04/26/23 10:41 Pulse Ox 99 04/26/23 10:41 Oxygen Delivery Method Room Air 04/26/23 10:41 BMI result Body Mass Index 25.9 Tobacco/Smoking Status: Tobacco use Status Tobacco use date assessed 04/26/23 04/26/23 10:47 Patient Tobacco Use Status Never used Tobacco 04/26/23 10:47 e-Cigarette/Vaping Use Never Used 04/26/23 10:47 PHQ-9: PHQ-9 Score PHQ-9: Total score 0 04/26/23 11:05 Depression Screening Interpretation: Negative Thrive Assessment: Date of Thrive Assessment Date Thrive assessed 04/26/23 04/26/23 10:47 Currently or been in a relationship where the following occur: no concerns reported Const General: no acute distress and alert Neck Neck: Yes no lymphadenopathy and Yes supple Resp Auscultation: clear to auscultation bilaterally, no rales and no wheezes Cardio Rate: regular rate Rhythm: regular rhythm Heart sounds: no murmurs GI Palpation (GI): Soft to palpation, Tenderness to palpation present (GI) (mild) in the epigastrum, no guarding, not rigid and No Rebound tenderness present Extrem General: Yes no clubbing, cyanosis or edema Assessment and Plan Assessment & Plan (1) Epigastric pain: Code(s): R10.13 - Epigastric pain Plan: Suspect gastritis Reinforced dietary restrictions similar to those in GERD - this includes red wine, coffee, tea and routine/daily spices Will send patient for upper GI series MICHAEL for further evaluation Will have her increase her Omeprazole in the meantime to 40 mg QD Will start her as well on Famotidine 20 mg BID x 15 days Plan Follow up in 2 months Orders: Orders [place] upper GI series Today R10.13 - Epigastric pain Medications: New omeprazole 40 mg PO DAILY 30 days 30 caps 3RF K29.70 - Gastritis, unspecified, without bleeding famotidine 20 mg PO BID 15 days 30 tabs 0RF gastritis K29.70 - Gastritis, unspecified, without bleeding, R10.13 - Epigastric pain Coding Level of Care Code Est Pt Level 3 (07917) Diagnoses Epigastric pain R10.13
== END 2023-04-26 11:20 | disposition home or self-care (01) ==
PROVIDERS: PCP Internal Medicine; Visit Provider Internal Medicine
DX: R10.13 Epigastric pain (principal)
CPT/HCPCS: 99213

== ENCOUNTER 2023-06-28 09:55 | Outpatient (AMB) | payer OTHER, SELFPAY ==
[2023-06-28 09:58] VITALS: BP 112/80; PULSE 74; O2SAT 99; BMI 26.3
--- NOTE | 2023-06-28 09:58 | A.OFFPC_ITS ---
Vital Signs 06/28/23 09:58 Height 5 ft 6 in Weight 163 lb BMI 26.3 BP 112/80 Blood Pressure Location Lt brachial Position Sitting Pulse 74 Pulse Source Pulse Oximeter Pulse Oximetry (%) 99 Oxygen Delivery Method Room Air Intake Visit Reasons: epigastric pain Family Readiness Support Assistant Required: No Accompanied by: Self / Same As Patient Allergies No Known Allergies [No Known Allergies*] Allergy (Verified 06/28/23 10:46) Medication List - Last Reconciled 06/28/23 by Tej Lanza MD omeprazole 40 mg PO DAILY 30 days Tobacco use date assessed: 06/28/23 Dental Screening Dental Screen Date: 06/28/23 Did you have a dental visit in the last 12 months?: No Did you have a dental problem in the last 6 months where you did not have access to dental care?: No Was dental information given to patient?: No HPI epigastric pain HPI Details Patient comes in today for her follow up visit States that her stomach is feeling much better lately She still has occasional epigastric discomfort but is no longer experiencing the pain that she had a couple of months ago She is currently still taking Omeprazole 40 mg QD and will need this refilled She denies any headaches or dizziness Denies any chest pains, no SOB No nausea/vomiting and no change in bowel habits noted Relates (+) occasional left lower back / left flank pain and discomfort over the past few weeks - states that these seem to occur more often in the morning when she first gets out of bed and is trying to put on her leggings and shoes and she has her left leg lifted up and / or crossed over the other leg She does not recall any recent injury or trauma to her lower back or left flank area Would also like to know how her labs done a few months ago came out [facility] Medical History (Updated 06/28/23 @ 11:01 by Tej Lanza MD) Pure hypercholesterolemia Overweight (BMI 25.0-29.9) Helicobacter pylori gastritis Constipation Impaired fasting glucose Iron deficiency anemia Mammogram normal (~06/2019) Uterine myoma Amenorrhea Surgical History History of esophagogastroduodenoscopy (EGD) Hx of colonoscopy Hx of myomectomy (~2014) Family History Other No significant family history Social History Household Members Other:: Housing: House Alcohol intake: never Patient Tobacco Use Status: Never used Tobacco e-Cigarette/Vaping Use: Never Used Second Hand Smoke Exposure: No service: No Current occupational status: employed 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 1. Little interest or pleasure in doing things: not at all 2. Feeling down, depressed, or hopeless: not at all 3. Trouble falling or staying asleep, or sleeping too much: not at all 4. Feeling tired or having little energy: not at all 5. Poor appetite or overeating: not at all 6. Feeling bad about yourself - or that you are a failure or have let yourself or your family down: not at all 7. Trouble concentrating on things, such as reading the newspaper or watching television: not at all 8. Moving or speaking so slowly that other people could have noticed. Or the opposite - being so fidgety or restless that you have been moving around a lot more than usual: not at all 9. Thoughts that you would be better off or of hurting yourself in some way: not at all Total score: 0 Depression Screening Interpretation: Negative Depression Screening Done: Yes 59397 - PHQ-9 Billing: Yes Source: Developed by Drs. Collin Mireles, Nini Hammer, Rodney Hollingsworth and colleagues, with an educational alma from [employer]. Thrive Questionnaire Date Thrive assessed: 06/28/23 I am a: Patient What is your living situation today?: I have a steady place to live Within the past 12 months, did the food you bought not last and you didn't have the money to get more?: Never true Within the past 12 months, did you worry whether your food would run out before you got money to buy more?: Never true Do you have trouble paying for medicines?: No Do you have trouble getting transportation to medical appointments?: No Do you have trouble paying your heating and electricity bill?: No Do you have trouble taking care of your child, family member or friend?: No Do you have trouble with day-to-day activities such as bathing, preparing meals, shopping, managing finances, etc.?: No Are you currently unemployed and looking for a job?: No Are you interested in more education?: No Please select the resources that you would like help with: None Currently or been in a relationship where the following occur: no concerns reported THRIVE Score: 0 AUDIT C Alcohol Use Questionnaire (AUDIT-C) 1. How often do you have a drink containing alcohol?: Never 3. How often do you have six or more drinks on one occasion?: Never Total Score: 0 Score Reviewed/Action Taken: Yes SIMIN-7 AMB Questionnaire SIMIN-7 Date SIMIN - 7 assessed: 06/28/23 Feeling nervous, anxious, or on edge: 0 = Not at all Not being able to stop or control worryin = Not at all Worrying too much about different things: 0 = Not at all Trouble relaxin = Not at all Being so restless that it is hard to sit still: 0 = Not at all Becoming easily annoyed or irritable: 0 = Not at all Feeling afraid as if something awful might happen: 0 = Not at all Total SIMIN-7 score (0-4 normal; 5-9 mild; 10-14 moderate; 15-21 severe): 0 Source: Developed by Drs. Collin Mireles, Nini Hammer, Rodney Hollingsworth and colleagues, with an educational alma from [employer]. Review of Systems Const Denies chills, Denies fatigue, Denies fever(s) and Denies headache(s) ENT Denies dysphagia, Denies dizziness, Denies otalgia, Denies headache(s), Denies neck pain, Denies odynophagia and Denies sore throat Card Denies chest pain, Denies palpitations and Denies dyspnea Resp Denies cough and Denies dyspnea GI Denies abdominal pain (but still has occasional epigastric discomfort), Denies hematochezia, Denies constipation, Denies dysphagia, Denies heartburn, Denies diarrhea, Denies nausea, Denies odynophagia and Denies vomiting Denies difficulty voiding, Denies nocturia and Denies dysuria Musc Reports back pain (on and off, over the left lower back - see HPI for details) and Denies neck pain Skin/Breast Denies rash Neuro Denies dizziness and Denies headache(s) Endo Denies fatigue and Denies palpitations Physical exam (Primary Care) Vital Signs: Last Vital Signs Pulse 74 06/28/23 09:58 BP 112/80 06/28/23 09:58 Pulse Ox 99 06/28/23 09:58 Oxygen Delivery Method Room Air 06/28/23 09:58 BMI result Body Mass Index 26.3 Tobacco/Smoking Status: Tobacco use Status Tobacco use date assessed 06/28/23 06/28/23 10:00 Patient Tobacco Use Status Never used Tobacco 06/28/23 10:00 e-Cigarette/Vaping Use Never Used 06/28/23 10:00 PHQ-9: PHQ-9 Score PHQ-9: Total score 0 06/28/23 10:04 Depression Screening Interpretation: Negative Thrive Assessment: Date of Thrive Assessment Date Thrive assessed 06/28/23 06/28/23 10:00 Currently or been in a relationship where the following occur: no concerns reported Const General: no acute distress and alert HENMT Ears: TM's normal bilaterally and EAC's normal Throat: Yes posterior oropharynx normal and Yes tonsils normal Neck Neck: Yes no lymphadenopathy and Yes supple Thyroid: Thyroid normal Resp Auscultation: clear to auscultation bilaterally, no rales and no wheezes Cardio Rate: regular rate Rhythm: regular rhythm Heart sounds: no murmurs GI Palpation (GI): Soft to palpation, nontender and no masses Auscultation: normal bowel sounds General: Yes no CVA tenderness Back/Spine/Pelvis Back: no CVA tenderness Thoracic/Lumbar Spine: No lumbar spinal tenderness Skin Rashes: no rashes Extrem General: Yes no clubbing, cyanosis or edema Results Reviewed Results Reviewed: Laboratory Tests 03/14/23 03/14/23 03/14/23 10:45 10:45 10:46 WBC 4.7 L RBC 6.17 H Hgb 12.7 Hct 41.8 MCV 67.7 L MCH 20.6 L MCHC 30.4 L RDW 16.0 Plt Count 218 Sodium 142 Potassium 4.2 Creatinine 0.69 Estimated GFR > 60 Fasting Glucose 107 H Hemoglobin A1c % 5.8 Insulin Level 9 Calcium 9.4 Magnesium 2.1 AST 19 ALT 26 C-Reactive Protein < 0.10 Triglycerides 134 Cholesterol LDL Cholesterol, Calc HDL Cholesterol 62 Vitamin B12 898 25-OH Vitamin D Total 32.1 TSH 1.08 Ur Specific [place] <= 1.005 Urine Protein Negative Urine Glucose (UA) Negative Urine Blood Negative Urine Nitrite Negative Ur Leukocyte Esterase Trace H 03/14/23 03/14/23 10:46 10:46 WBC RBC Hgb Hct MCV MCH MCHC RDW Plt Count Sodium Potassium Creatinine Estimated GFR Fasting Glucose Hemoglobin A1c % Insulin Level Calcium Magnesium AST ALT C-Reactive Protein Triglycerides Cholesterol 221 H LDL Cholesterol, Calc 133 H HDL Cholesterol Vitamin B12 25-OH Vitamin D Total TSH Ur Specific [place] Urine Protein Urine Glucose (UA) Urine Blood Urine Nitrite Ur Leukocyte Esterase Assessment and Plan Assessment & Plan (1) Helicobacter pylori gastritis: Comment: S/P Tx in October 2022 Code(s): K29.70 - Gastritis, unspecified, without bleeding; B96.81 - Helicobacter pylori [H. pylori] as the cause of diseases classified elsewhere Plan: Patient states that her abdominal symptoms (pain) have improved a lot over the past month or so with Rx S/P Tx for H. pylori in 10/2022 Reinforced dietary restrictions Continue Omeprazole 40 mg QD - Rx refilled (2) RBC microcytosis: Code(s): R71.8 - Other abnormality of red blood cells Plan: Suspect thalassemia trait as her iron function studies were normal when checked last year Will recheck her CBC and will also send her for Hgb electrophoresis for further evaluation (3) Hypochromic erythrocytes: Code(s): D50.8 - Other iron deficiency anemias Plan: Suspect thalassemia trait - will send her for Hgb electrophoresis for further evaluation (4) Pure hypercholesterolemia: Code(s): E78.00 - Pure hypercholesterolemia, unspecified Plan: Results of her labs done back in late February 2023 reviewed and discussed with patient - advised that her LDL and total cholesterol levels have increased significantly on her recent labs from the previous year Reinforced low cholesterol diet Will recheck her labs and fasting lipids in 3 months for follow up (5) Impaired fasting glucose: Code(s): R73.01 - Impaired fasting glucose Plan: Patient is advised that her FBS was also slightly elevated on her labs back in February 2023 Reinforced low calorie/low carb diet and regular exercise Will recheck her labs and FBS in 3 months for follow up (6) Pain in left lumbar region of back: Code(s): M54.50 - Low back pain, unspecified Plan: She has NO reproducible pain or symptoms on examination of her lower back and left flank area today Advised that her symptoms are likely due to muscle spasms or strain If she continues to complain of above or similar symptoms, will then consider sending her for some imaging studies (lumar spine x-rays) for further evaluation (7) Constipation: Code(s): K59.00 - Constipation, unspecified Qualifiers: Constipation type: unspecified constipation type Qualified Code(s): K59.00 - Constipation, unspecified Plan: Encouraged again increased oral fluids and dietary fiber Continue Miralax 17 gm QD (8) Overweight (BMI 25.0-29.9): Code(s): E66.3 - Overweight Plan: Reinforced diet/exercise as tolerated/lose weight Plan Follow up in 3 months Orders: Orders IRON PROFILE Today D50.9 - Iron deficiency anemia, unspecified Vitamin B12 and Folate Today E53.8 - Deficiency of other specified B group vitamins Comprehensive [place]. Panel Fast 3 Months E78.00 - Pure hypercholesterolemia, unspecified Lipid Panel 3 Months E78.00 - Pure hypercholesterolemia, unspecified Hemoglobin A1c 3 Months R73.01 - Impaired fasting glucose Hemoglobin Electrophoresis Today D50.8 - Other iron deficiency anemias, D64.9 - Anemia, unspecified, R71.8 - Other abnormality of red blood cells Complete Blood Count Auto Diff Today D64.9 - Anemia, unspecified Medications: Refilled omeprazole 40 mg PO DAILY 30 caps 3RF 30 days K29.70 - Gastritis, unspecified, without bleeding Discontinued famotidine Discontinued Reason: Patient Completed Course 20 mg PO BID 15 days 30 tabs 0RF gastritis K29.70 - Gastritis, unspecified, without bleeding, R10.13 - Epigastric pain Coding Level of Care Code Est Pt Level 4 (94075) Diagnoses Helicobacter pylori gastritis K29.70; B96.81 RBC microcytosis R71.8 Hypochromic erythrocytes D50.8 Pure hypercholesterolemia E78.00 Impaired fasting glucose R73.01 Pain in left lumbar region of back M54.50 Constipation, unspecified constipation type K59.00 Constipation type: unspecified constipation type Overweight (BMI 25.0-29.9) E66.3
== END 2023-06-28 10:43 | disposition home or self-care (01) ==
PROVIDERS: PCP Internal Medicine; Visit Provider Internal Medicine
DX: K29.70 Gastritis, unspecified, without bleeding (principal); B96.81 Helicobacter pylori [H. pylori] as the cause of diseases classified elsewhere; D50.8 Other iron deficiency anemias; E78.00 Pure hypercholesterolemia, unspecified; R73.01 Impaired fasting glucose; M54.50 Low back pain, unspecified; K59.00 Constipation, unspecified; E66.3 Overweight
CPT/HCPCS: 99214

== ENCOUNTER 2023-06-28 10:48 | Outpatient (REF) | payer OTHER, SELFPAY ==
[2023-06-28 11:05] LABS: MANUAL DIFF FLAG NO
[2023-06-28 11:57] LABS: Basophils Percent Auto 0.5 % (0-2); Eosinophils Absolute Auto 0.2 X10*3/uL (0.0-0.4); Eosinophils Percent Auto 4.6 % (0-4); Hematocrit 42.6 % (37.0-47.0); Hemoglobin 12.8 g/dl (12.0-16.0); Imm Gran Abs Auto 0.01 X10*3/uL (0.00-0.03); Imm Gran Pct Auto 0.2 % (0.0-0.4); Lymphocytes Absolute Auto 1.2 X10*3/uL (1.2-4.9); Mean Corpuscular Hemoglobin 20.6 pg (27.0-33.0); Mean Corpuscular Volume 68.5 fL (80.0-98.0); Mean Platelet Volume 10.6 fL (9.4-12.3); Monocytes Absolute Auto 0.3 X10*3/uL (0.1-1.2); Monocytes Percent Auto 7.1 % (2-11); Neutrophils Absolute Auto 2.4 x10*3/uL (2.0-8.3); Neutrophils Percent Auto 59.6 % (45-73); Platelet Count 214 X10*3/uL (160-400); Red Blood Count 6.22 X10*6/uL (4.20-5.50); Red Cell Distribution Width 15.6 % (11.0-16.0); White Blood Count 4.1 X10*3/uL (4.8-10.8)
[2023-06-28 12:28] LABS: Iron 116 mcg/dL (30-160); Percent Iron Saturation 41 % (15-50); Total Iron Binding Capacity 284 mcg/dL (228-428); Unsaturated Iron Binding 168 ug/dL
[2023-06-28 13:23] LABS: Folate > 20.0 ng/mL (> or = 4.0); Vitamin B12 1055 pg/mL (200-900)
[2023-06-30 15:04] LABS: Hematocrit 43.2 % (35.0-45.0); MCV 69.8 fL (80.0-100.0); RBC 6.19 Million/uL (3.80-5.10)
== END 2023-06-28 10:49 | disposition home or self-care (01) ==
LOC: HO.LAB 10:48
PROVIDERS: PCP Internal Medicine; Visit Provider Internal Medicine
DX: E53.8 Deficiency of other specified B group vitamins (principal); D50.8 Other iron deficiency anemias
CPT/HCPCS: 36415; 82607; 82746; 83020; 83540; 85014; 85018; 85025; 85041

== ENCOUNTER 2023-07-12 08:34 | Outpatient (REF) | payer OTHER, SELFPAY ==
--- NOTE | ~2023-07-12 | FL_ITS ---
EXAMINATION: XR FLUOROSCOPY UPPER GI WITH AIR CLINICAL INFORMATION: Epigastric pain COMPARISON: None TECHNIQUE: Fluoroscopic air contrast upper GI examination was performed utilizing standard techniques with thin and thick barium and effervescent granules. Numerous spot images were obtained. FINDINGS: Lateral cine images of the oropharynx and hypopharynx demonstrate normal swallow mechanism with normal epiglottic inversion and soft palate elevation. No tracheal penetration, glottic or subglottic aspiration identified. No nasopharyngeal reflux present. Hypopharyngeal structures appear normal without evidence of mass or diverticulum. There was no significant cricopharyngeal achalasia. Dual and single contrast images of the esophagus demonstrate normal caliber, contour, and mucosal pattern. No evidence of stricture, mass, or ulcerations identified. Esophageal peristalsis was mildly disordered. No evidence of hiatus hernia identified. Significant gastroesophageal reflux is seen up to the thoracic inlet. Dual contrast and single contrast images of the stomach demonstrated normal contour. The gastric rugal folds appear minimally thickened without evidence of evidence of mass, ulceration, or other abnormality. Contrast freely passed into the gastric antrum and duodenal bulb without delay. Single and air-contrast images of the duodenal bulb demonstrate no abnormality. The duodenal sweep has a normal appearance, course, and mucosal fold appearance. No malrotation. The imaged proximal jejunum has a normal fold pattern and caliber. FLUOROSCOPY TIME: 2 minutes 49 seconds Number of Spot Images: 10 Number of Cine: 8 DOSE AREA PRODUCT: 1895 uGy-m2 (microgray-meter squared) FL/FL upper GI w air IMPRESSION: 1. Significant gastroesophageal reflux. No definite hiatus hernia. 2. Minimally thickened gastric rugal folds , possibly within the realm of normal, or possibly relating to a mild gastritis. 3. Mildly disordered esophageal peristalsis. This procedure was performed by Gilberto Naik PA-C, and supervised by Dr. Booker
== END 2023-07-12 08:35 | disposition home or self-care (01) ==
LOC: HO.XRAY 08:34
PROVIDERS: PCP Internal Medicine; Visit Provider Internal Medicine
DX: R10.13 Epigastric pain (principal)
CPT/HCPCS: 74246

== ENCOUNTER → 2023-07-12 08:35 | Outpatient (BNV) | payer OTHER, SELFPAY | PROVIDERS: PCP Internal Medicine; Visit Provider Physician Assistant Surgical | DX: R10.13 Epigastric pain (principal) | CPT/HCPCS: 74246 ==

== ENCOUNTER 2023-09-27 09:23 | Outpatient (AMB) | payer OTHER, SELFPAY ==
[2023-09-27 09:24] VITALS: BP 122/88; PULSE 67; O2SAT 98; BMI 26.0
--- NOTE | 2023-09-27 09:24 | MHC.PC.OV ---
Vital Signs 09/27/23 09:24 Height 5 ft 6 in Weight 161 lb 0.2 oz BMI 26.0 BP 122/88 Blood Pressure Location Lt brachial Position Sitting Pulse 67 Pulse Source Pulse Oximeter Pulse Oximetry (%) 98 Oxygen Delivery Method Room Air Intake Visit Reasons: hyperlipidemia, anemia, gastritis Intake Note: Patient is here to follow up on hyper lipidemia, anemia, gastritis. Licensed Psychiatric Technician Required: No Allergies No Known Allergies [No Known Allergies*] Allergy (Verified 09/27/23 09:41) Medication List - Last Reconciled 09/27/23 by Tej Lanza MD loratadine (Alavert) 10 mg PO DAILY PRN mometasone 0.1% 1 appl topical DAILY PRN omeprazole 40 mg PO DAILY 30 days Tobacco use date assessed: 09/27/23 Dental Screening Dental Screen Date: 06/28/23 HPI hyperlipidemia, anemia, gastritis HPI Details Patient comes in today for her follow up visit States that she feels okay although she reports experiencing on and off headaches lately that often occur in the afternoon States that she would often take some OTC Tylenol as soon as her headaches occur, which would eventually relieve her headaches Also reports experiencing on and off pain over her left flank area lately - states that the pain here is not related to or made worse when she urinates or uses the bathroom Does not recall any recent injury or trauma to her left flank area or to her lower back She denies any dizziness Denies any chest pains, no SOB No nausea/vomiting, no abdominal pain - states that her stomach is feeling a lot better with her Rx and she will need her Omeprazole Rx refilled if she is to continue on it No change in bowel habits noted She was not able to get her previously ordered follow up labs done prior to her appt today - states that she has not yet eaten anything today and can get to the lab now after her office visit Adds that she has also been taking some OTC Alavert QD PRN recently for allergies [facility] Medical History (Updated 09/27/23 @ 10:18 by Tej Lanza MD) Pure hypercholesterolemia Overweight (BMI 25.0-29.9) Helicobacter pylori gastritis Constipation Impaired fasting glucose Iron deficiency anemia Mammogram normal (~06/2019) Uterine myoma Amenorrhea Surgical History History of esophagogastroduodenoscopy (EGD) Hx of colonoscopy Hx of myomectomy (~2014) Family History Other No significant family history Social History Household Members Other:: Housing: House Alcohol intake: never Patient Tobacco Use Status: Never used Tobacco e-Cigarette/Vaping Use: Never Used Second Hand Smoke Exposure: No service: No Current occupational status: employed 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 1. Little interest or pleasure in doing things: not at all 2. Feeling down, depressed, or hopeless: not at all 3. Trouble falling or staying asleep, or sleeping too much: not at all 4. Feeling tired or having little energy: not at all 5. Poor appetite or overeating: not at all 6. Feeling bad about yourself - or that you are a failure or have let yourself or your family down: not at all 7. Trouble concentrating on things, such as reading the newspaper or watching television: not at all 8. Moving or speaking so slowly that other people could have noticed. Or the opposite - being so fidgety or restless that you have been moving around a lot more than usual: not at all 9. Thoughts that you would be better off or of hurting yourself in some way: not at all Total score: 0 Depression Screening Interpretation: Negative Depression Screening Done: Yes 07200 - PHQ-9 Billing: Yes Source: Developed by Drs. Collin Mireles, Nini Hammer, Rodney Hollingsworth and colleagues, with an educational alma from [employer]. Thrive Questionnaire Date Thrive assessed: 09/27/23 I am a: Patient What is your living situation today?: I have a steady place to live Within the past 12 months, did the food you bought not last and you didn't have the money to get more?: Never true Within the past 12 months, did you worry whether your food would run out before you got money to buy more?: Never true Do you have trouble paying for medicines?: No Do you have trouble getting transportation to medical appointments?: No Do you have trouble paying your heating and electricity bill?: No Do you have trouble taking care of your child, family member or friend?: No Do you have trouble with day-to-day activities such as bathing, preparing meals, shopping, managing finances, etc.?: No Are you currently unemployed and looking for a job?: No Are you interested in more education?: No Please select the resources that you would like help with: None Currently or been in a relationship where the following occur: no concerns reported THRIVE Score: 0 AUDIT C Alcohol Use Questionnaire (AUDIT-C) 1. How often do you have a drink containing alcohol?: Never 3. How often do you have six or more drinks on one occasion?: Never Total Score: 0 Score Reviewed/Action Taken: Yes SIMIN-7 AMB Questionnaire SIMIN-7 Date SIMIN - 7 assessed: 09/27/23 Source: Developed by Drs. Collin Mireles, Nini Hammer, Rodney Hollingsworth and colleagues, with an educational alma from [employer]. Review of Systems Const Denies chills, Denies fatigue, Denies fever(s) and Reports headache(s) (on and off - see HPI) ENT Denies dysphagia, Denies dizziness, Denies otalgia, Reports headache(s) (on and off - see HPI), Denies neck pain, Denies odynophagia and Denies sore throat Card Denies chest pain, Denies palpitations and Denies dyspnea Resp Denies cough and Denies dyspnea GI Denies abdominal pain, Denies constipation, Denies dysphagia, Denies heartburn, Denies diarrhea, Denies nausea, Denies odynophagia and Denies vomiting Denies difficulty voiding, Denies nocturia, Denies dysuria and Denies urinary urgency Musc Reports back pain (over the left flank area lately), Denies arthralgias and Denies neck pain Skin/Breast Denies rash Neuro Denies dizziness and Reports headache(s) (on and off - see HPI) Endo Denies fatigue and Denies palpitations Physical exam (Primary Care) Vital Signs: Last Vital Signs Pulse 67 09/27/23 09:24 BP 122/88 09/27/23 09:24 Pulse Ox 98 09/27/23 09:24 Oxygen Delivery Method Room Air 09/27/23 09:24 BMI result Body Mass Index 26.0 Tobacco/Smoking Status: Tobacco use Status Tobacco use date assessed 09/27/23 09/27/23 09:26 Patient Tobacco Use Status Never used Tobacco 09/27/23 09:26 e-Cigarette/Vaping Use Never Used 09/27/23 09:26 PHQ-9: PHQ-9 Score PHQ-9: Total score 0 09/27/23 09:36 Depression Screening Interpretation: Negative Thrive Assessment: Date of Thrive Assessment Date Thrive assessed 09/27/23 09/27/23 09:26 Currently or been in a relationship where the following occur: no concerns reported Const General: no acute distress and alert HENMT Throat: Yes posterior oropharynx normal and Yes tonsils normal (no TP congestion) Neck Neck: Yes no lymphadenopathy and Yes supple Thyroid: Thyroid normal Resp Auscultation: clear to auscultation bilaterally, no rales and no wheezes Cardio Rate: regular rate Rhythm: regular rhythm Heart sounds: no murmurs GI Palpation (GI): Soft to palpation and nontender Auscultation: normal bowel sounds General: Yes no CVA tenderness (reported left flank pain NOT reproducible on physical exam) Back/Spine/Pelvis Back: no CVA tenderness (reported left flank pain NOT reproducible on physical exam) Thoracic/Lumbar Spine: No lumbar spinal tenderness Sacroiliac joints: bilaterally nontender Skin Rashes: no rashes Extrem General: Yes no clubbing, cyanosis or edema Results Reviewed Results Reviewed: Laboratory Tests 06/28/23 11:03 WBC 4.1 L RBC 6.22 H RBC (Send Out) 6.19 H Hgb 12.8 Hct 42.6 MCV 68.5 L MCH 20.6 L RDW 15.6 Plt Count 214 Hemoglobin A 97.7 Hemoglobin A2 2.3 Vitamin B12 1055 H Folate > 20.0 Assessment and Plan Assessment & Plan (1) Helicobacter pylori gastritis: Comment: S/P Tx in October 2022 Code(s): K29.70 - Gastritis, unspecified, without bleeding; B96.81 - Helicobacter pylori [H. pylori] as the cause of diseases classified elsewhere Plan: Patient reports that her abdominal symptoms (pain) have improved with Tx and she no longer has any recurrence of her previous GI symptoms S/P Tx for H. pylori in 10/2022 Reinforced dietary restrictions Continue Omeprazole 40 mg QD (Rx refilled) - have advised patient to stay on her Rx for another couple of months, after which she can try stopping it and see how she does OFF the medication If her symptoms do not recur, then she can just take her Omeprazole PRN from then on; otherwise, she can start back on her Rx if her symptoms start to flare up again (2) RBC microcytosis: Code(s): R71.8 - Other abnormality of red blood cells Plan: Suspect thalassemia as her iron function studies were normal when checked last year Her H/H remained normal on her recent labs and her microcytosis and hypochromia persisted Hgb electrophoresis done in June 2023 revealed microcytosis and NORMAL hemoglobin pattern - this may be seen in iron deficiency and alpha thalassemia and recommended to consider genetic counseling if appropriate (3) Pure hypercholesterolemia: Code(s): E78.00 - Pure hypercholesterolemia, unspecified Plan: Patient was not able to get her previously ordered follow up labs done prior to her visit today She is reminded that her LDL and total cholesterol levels have increased significantly from a year ago on her labs done back in February 2023 and we will need to follow up on those States that she will go and get her labs done after leaving the office today Reinforced low cholesterol diet (4) Impaired fasting glucose: Code(s): R73.01 - Impaired fasting glucose Plan: Her FBS was also slightly elevated on her labs back in February 2023 and we will get this rechecked as well Reinforced low calorie/low carb diet and regular exercise (5) Left flank pain: Code(s): R10.9 - Unspecified abdominal pain Plan: Patient has NO reproducible pain or symptoms on examination of her lower back and left flank area today She is advised that her symptoms may be due to muscle spasms or muscle strain although her exam is completely unremarkable Will consider sending her for some imaging studies (lumar spine x-rays) for further evaluation if her symptoms persist or get worse - patient is instructed to call us up if she feels her symptoms are increasing (6) Allergic rhinitis: Code(s): J30.9 - Allergic rhinitis, unspecified Qualifiers: Allergic rhinitis trigger: pollen Allergic rhinitis seasonality: seasonal Qualified Code(s): J30.1 - Allergic rhinitis due to pollen Plan: Continue OTC Alavert 10 mg QD PRN (7) Constipation: Code(s): K59.00 - Constipation, unspecified Qualifiers: Constipation type: unspecified constipation type Qualified Code(s): K59.00 - Constipation, unspecified Plan: Encouraged again increased oral fluids and dietary fiber Continue Miralax 17 gm QD (8) Overweight (BMI 25.0-29.9): Code(s): E66.3 - Overweight Plan: Reinforced diet/exercise as tolerated/lose weight Plan Follow up in 4 months Orders: Orders Erythrocyte Sedimentation Rate Today M25.50 - Pain in unspecified joint, M79.7 - Fibromyalgia C Reactive Protein Today M25.50 - Pain in unspecified joint Complete Blood Count Auto Diff Today D64.9 - Anemia, unspecified, M25.50 - Pain in unspecified joint UA CC w/rflx Micro + Cult Today M25.50 - Pain in unspecified joint, R30.0 - Dysuria Medications: Refilled omeprazole 40 mg PO DAILY 30 days 30 caps 3RF K29.70 - Gastritis, unspecified, without bleeding Coding Level of Care Code Est Pt Level 4 (68559) Diagnoses Helicobacter pylori gastritis K29.70; B96.81 RBC microcytosis R71.8 Pure hypercholesterolemia E78.00 Impaired fasting glucose R73.01 Left flank pain R10.9 Seasonal allergic rhinitis due to pollen J30.1 Allergic rhinitis trigger: pollen Allergic rhinitis seasonality: seasonal Constipation, unspecified constipation type K59.00 Constipation type: unspecified constipation type Overweight (BMI 25.0-29.9) E66.3
== END 2023-09-27 10:00 | disposition home or self-care (01) ==
PROVIDERS: PCP Internal Medicine; Visit Provider Internal Medicine
DX: K29.70 Gastritis, unspecified, without bleeding (principal); B96.81 Helicobacter pylori [H. pylori] as the cause of diseases classified elsewhere; R71.8 Other abnormality of red blood cells; E78.00 Pure hypercholesterolemia, unspecified; R73.01 Impaired fasting glucose; R10.9 Unspecified abdominal pain; J30.1 Allergic rhinitis due to pollen; K59.00 Constipation, unspecified; E66.3 Overweight
CPT/HCPCS: 99214

== ENCOUNTER 2023-09-27 10:06 | Outpatient (REF) | payer OTHER, SELFPAY ==
[2023-09-27 10:23] LABS: MANUAL DIFF FLAG NO
[2023-09-27 10:58] LABS: Estimated Average Glucose 137 mg/dL; Hemoglobin A1c % 6.4 % (<6.0)
[2023-09-27 11:10] LABS: Basophils Percent Auto 0.6 % (0-2); Eosinophils Absolute Auto 0.3 X10*3/uL (0.0-0.4); Eosinophils Percent Auto 6.1 % (0-4); Hematocrit 40.4 % (37.0-47.0); Hemoglobin 12.5 g/dl (12.0-16.0); Imm Gran Abs Auto 0.02 X10*3/uL (0.00-0.03); Imm Gran Pct Auto 0.4 % (0.0-0.4); Lymphocytes Absolute Auto 1.3 X10*3/uL (1.2-4.9); Lymphocytes Percent Auto 27.9 % (20-40); Mean Corpuscular HGB Conc 30.9 g/dl (31.0-35.0); Mean Corpuscular Volume 67.9 fL (80.0-98.0); Mean Platelet Volume 10.9 fL (9.4-12.3); Monocytes Absolute Auto 0.3 X10*3/uL (0.1-1.2); Monocytes Percent Auto 6.8 % (2-11); Neutrophils Absolute Auto 2.8 x10*3/uL (2.0-8.3); Neutrophils Percent Auto 58.2 % (45-73); Platelet Count 200 X10*3/uL (160-400); Red Blood Count 5.95 X10*6/uL (4.20-5.50); Red Cell Distribution Width 15.1 % (11.0-16.0); White Blood Count 4.7 X10*3/uL (4.8-10.8)
[2023-09-27 11:10] LABS: Appearance Urine Clear; Color Urine Yellow; Glucose Urine UA Negative (Negative); Leukocyte Esterase Urine Trace (Negative); Nitrite Urine Negative (Negative); PH 7.5 (5.0-9.0); Specific Gravity - Urine <= 1.005 (1.005-1.025); UMIC TRIGGER UACC YES; Urine Blood Negative (Negative); Urine Ketones Negative (Negative); Urine Protein Negative (Neg-Trace)
[2023-09-27 11:25] LABS: Bacteria Urine None Seen (None Seen); Hyaline Casts Urine 0-2 /LPF (0-2); RBC Urine 0-2 /HPF (0-2); Squamous Epithelial Cell Urine 0-2 /HPF (0-2); WBC Urine 0-5 /HPF (0-5)
[2023-09-27 11:56] LABS: Alanine Aminotransferase 29 U/L (0-31); Albumin Level 4.5 g/dL (3.5-5.0); Alkaline Phosphatase 64 U/L (39-117); Anion Gap 14 (12-20); Aspartate Amino Transferase 25 U/L (5-31); Bilirubin Total 0.3 mg/dL (0.0-1.0); Blood Urea Nitrogen 13 mg/dL (9-16); C Reactive Protein < 0.10 mg/dL (< or = 0.50); Calcium 9.6 mg/dL (8.4-10.2); Carbon Dioxide 26 mmol/L (22-29); Chloride 106 mmol/L (96-108); Cholesterol 187 mg/dL (<200); Estimated Glomerular Filt Rate > 60; Glucose Fasting 106 mg/dL (60-99); HDL Cholesterol 64 mg/dL (>40); LDL Cholesterol Calculated 108 mg/dL (<100); Potassium 4.1 mmol/L (3.3-5.1); Sodium 142 mmol/L (135-145); Total Protein 7.8 g/dL (6.5-8.0); Triglycerides 76 mg/dL (<150)
[2023-09-27 12:01] LABS: Erythrocyte Sedimentation Rate 5 MM/HR (0-20)
== END 2023-09-27 10:07 | disposition home or self-care (01) ==
LOC: HO.LAB 10:06
PROVIDERS: PCP Internal Medicine; Visit Provider Internal Medicine
DX: Z00.00 Encounter for general adult medical examination without abnormal findings (principal); E78.00 Pure hypercholesterolemia, unspecified; R73.01 Impaired fasting glucose; M25.50 Pain in unspecified joint; M79.7 Fibromyalgia; D64.9 Anemia, unspecified; R30.0 Dysuria; R20.2 Paresthesia of skin
CPT/HCPCS: 36415; 80053; 80061; 81001; 81003; 83036; 85025; 85652; 86140

== ENCOUNTER 2023-10-11 10:32 | Outpatient (AMB) | payer OTHER, SELFPAY ==
[2023-10-11 10:41] VITALS: BP 116/70; BMI 26.3
--- NOTE | 2023-10-11 10:41 | MHC.OFFVIS ---
Vital Signs 10/11/23 10:41 Height 5 ft 6 in Weight 163 lb BMI 26.3 BP 116/70 Intake Visit Reasons: new patient Annual Intake Note: random lower left abdominal pain Pharmacy Informatics Manager Required: Yes Pharmacy Informatics Manager Language: Mandarin Yi Pharmacy Informatics Manager Name: Cherry [id number] Information Interpreted: non-clinical & clinical Aviation Metalsmith: Aviation Metalsmith Present ([place]gilioyn) Allergies No Known Allergies [No Known Allergies*] Allergy (Verified 10/11/23 10:48) Is last menstrual period known: No HPI Comments Details: She is a premenopausal woman presenting for her new patient annual set illustrator examination. She is doing well with no concerns: history of myomectomy in [place], [place] and was told she had small fibroids. Attempting to eat a healthy diet, w/multivits, no regular exercise. Currently sexually active w/. Denies any vaginal dryness or irritation. LMP 01/2023. STI testing offered; she accepts. Last pap smear; 2018. She reports a negative Pap history. Last mammogram; 2022. Colonoscopy is UTD. Denies any family history of breast or ovarian cancer, family history of colon cancer brother age 44. [facility], [facility] Medical History (Updated 10/11/23 @ 11:38 by Lola Palencia CNM) Pure hypercholesterolemia Overweight (BMI 25.0-29.9) Helicobacter pylori gastritis Constipation Impaired fasting glucose Iron deficiency anemia Mammogram normal (~06/2019) Uterine myoma Amenorrhea Surgical History (Updated 10/11/23 @ 11:12 by Lola Palencia CNM) History of esophagogastroduodenoscopy (EGD) Hx of colonoscopy Hx of myomectomy (~2014) Family History (Updated 10/11/23 @ 11:40 by TJ Coffey) Brother Colon cancer Other No significant family history Social History Household Members Other:: Housing: House Alcohol intake: never Patient Tobacco Use Status: Never used Tobacco e-Cigarette/Vaping Use: Never Used Second Hand Smoke Exposure: No service: No Current occupational status: employed 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 Current occupational exposures/hazards: No Cognitive needs: No Hearing needs: No Vision needs: Yes Female Reproductive History Menstrual Age of Menarche: 16 control method: none Total pregnancies: 3 Full term: 1 Number of Living Children: 1 Ab induced: 2 Date of last pap smear: 02/26/19 (negative) Date of Mammogram: 11/15/22 Review of Systems Const All systems reviewed & are unremarkable except as noted in HPI and below Reports as per HPI Eyes Reports no additional complaints ENT Reports no additional complaints Card Reports no additional complaints Resp Reports no additional complaints GI Reports as per HPI and Reports no additional complaints Reports as per HPI Musc Reports no additional complaints Skin/Breast Reports as per HPI Neuro Reports no additional complaints Psych Reports no additional complaints Endo Reports no additional complaints Cirilo/Lymph Reports no additional complaints Aller/Immun Reports no additional complaints Physical Exam Vital Signs: Last Vital Signs BP 116/70 10/11/23 10:41 BMI result Body Mass Index 26.3 Const General: cooperative, healthy appearing, no acute distress, well developed and alert Orientation/consciousness: patient oriented x3 HEENT Head: Yes normal to inspection Eyes General: appearance normal, both eyes and all related structures Neck Neck: Yes normal visual inspection Thyroid: Thyroid normal Chest Chest palpation & inspection: normal inspection of the chest and other (no puckering, dimpling, peau de orange, retraction, discharge, masses) Breast/axilla inspection: normal inspection of the breasts Breast/axilla palpation: normal palpation of the breasts Resp Effort & Inspection: normal respiratory effort GI Inspection: Yes normal to inspection Palpation (GI): Soft to palpation Rectal Exam - Female: deferred General: Yes bladder normal to palpation External Female Exam: normal external appearance and normal appearance of the urethra Speculum Exam - Vagina: normal appearance of the vagina, normal palpation and normal vaginal discharge Speculum Exam - Cervix: normal appearance of the cervix, normal palpation, Cervical lesion present mass (Protruding from os, friable) and Other cervical findings present Bimanual exam- vagina & uterus: normal bimanual exam, normal palpation, uterine size normal, bladder normal to palpation, normal palpation and non-tender Bimanual Exam- Adnexa, other: no masses Skin General skin exam: no rashes or lesions noted Rashes: no rashes Neuro General: patient oriented x3 Cognition (Neuro): normal cognition Extrem General: Yes normal to inspection Psych Attitude: cooperative Thought process: Normal thought process present Assessment & Plan Assessment & Plan (1) Encounter for gynecological examination (general) (routine) with abnormal findings: Code(s): Z01.411 - Encounter for gynecological examination (general) (routine) with abnormal findings Category: Medical (2) Fibroid: Code(s): D21.9 - Benign neoplasm of connective and other soft tissue, unspecified Category: Medical (3) Cervical mass: Code(s): N88.8 - Other specified noninflammatory disorders of cervix uteri Category: Medical Plan Discussed: Current recommendations for pap smears per ASCCP guidelines. Breast awareness, periodic self breast exams and yearly mammogram. Maintain a healthy lifestyle, well balanced diet, and routine exercise. Workup for cervical mass and history of fibroids will include a pelvic ultrasound, follow up in person pending results to determine the plan of care for removal of cervical mass, tissue may be a fibroid, polyp or other unknown at this time. Patient verbalizes understanding and agrees to the plan of care. She was given opportunity to ask questions and all questions were answered to the best of my ability. RTO in 1 year for annual set illustrator exam. This note is constructed using voice recognition software. While every effort has been made to ensure accuracy, wage analyst errors may have been included. Orders: Orders US pelvic and transvaginal Today D21.9 - Benign neoplasm of connective and other soft tissue, unspecified, N88.8 - Other specified noninflammatory disorders of cervix uteri CT NG by PCR Today Z20.2 - Contact with and (suspected) exposure to infections with a predominantly sexual mode of transmission Pap Smear Today Z12.4 - Encounter for screening for malignant neoplasm of cervix Coding Level of Care Code New Pt Prev Care 40-64y([id number]) Diagnoses Encounter for gynecological examination (general) (routine) with abnormal findings Z01.411 Fibroid D21.9 Cervical mass N88.8
== END 2023-10-11 11:44 | disposition home or self-care (01) ==
PROVIDERS: PCP Internal Medicine; Visit Provider Advanced Practice Midwife
DX: Z01.411 Encounter for gynecological examination (general) (routine) with abnormal findings (principal); D21.9 Benign neoplasm of connective and other soft tissue, unspecified; N88.8 Other specified noninflammatory disorders of cervix uteri
CPT/HCPCS: 99386

== ENCOUNTER 2023-10-11 10:32 | Outpatient (REF) | payer OTHER, SELFPAY ==
[2023-10-12 09:28] LABS: CT PCR NOT DETECTED (Not Detect.); NG PCR NOT DETECTED (Not Detect.)
[2023-10-19 21:59] LABS: HPV mRNA E6/E7 rflx Not Detected (Not Detected)
== END 2023-10-11 10:33 | disposition home or self-care (01) ==
LOC: HO.LNP 10:32
PROVIDERS: PCP Internal Medicine; Visit Provider Advanced Practice Midwife
DX: Z01.411 Encounter for gynecological examination (general) (routine) with abnormal findings (principal); D21.9 Benign neoplasm of connective and other soft tissue, unspecified; N88.8 Other specified noninflammatory disorders of cervix uteri; Z20.2 Contact with and (suspected) exposure to infections with a predominantly sexual mode of transmission
CPT/HCPCS: 0353U; 87624; 88142; 99386

== ENCOUNTER 2023-10-25 12:52 | Outpatient (AMB) | payer OTHER, SELFPAY ==
[2023-10-25 13:05] VITALS: BP 120/74; PULSE 72; TEMP 36.8; O2SAT 98; BMI 26.1
--- NOTE | 2023-10-25 13:05 | MHC.OFFWIV ---
Intake Vital Signs 10/25/23 13:05 Height 5 ft 6 in Weight 162 lb BMI 26.1 BP 120/74 Blood Pressure Location Rt brachial Position Sitting Pulse 72 Pulse Source Pulse Oximeter Temp 98.3 F Temp Source Oral Pulse Oximetry (%) 98 Oxygen Delivery Method Room Air Intake Visit Reasons: EP Poison Cheryl Patient Tobacco Use Status: Never used Tobacco Allergies No Known Allergies [No Known Allergies*] Allergy (Verified 10/25/23 13:08) Do you need a note to return to daycare/school/sports/work: No HPI HPI Comments History of Present Illness Details Patient is a 52-year-old female in today for a sick visit. She reports doing yardwork 3 days prior to arrival and developed lesions on are left lower and right lower extremity as well as her left upper extremity by her forearm. States that they are very itchy, have developed clear discharge. Denies any tingling or numbness to the area. States there is some tenderness to the left lower extremity. Denies chest pain or shortness of breath. Presentation is congruent with poison cheryl. Left lower extremity seems to also be developing cellulitis, is taut and shiny and has some erythema throughout. Discharge is clear. [facility] Medical History Pure hypercholesterolemia Overweight (BMI 25.0-29.9) Helicobacter pylori gastritis Constipation Impaired fasting glucose Iron deficiency anemia Mammogram normal (~06/2019) Uterine myoma Amenorrhea Surgical History History of esophagogastroduodenoscopy (EGD) Hx of colonoscopy Hx of myomectomy (~2014) Family History Brother Colon cancer Other No significant family history Social History Household Members Other:: Housing: House Alcohol intake: never Patient Tobacco Use Status: Never used Tobacco e-Cigarette/Vaping Use: Never Used Second Hand Smoke Exposure: No service: No Current occupational status: employed 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 Const Other: Appearance: Alert.? Oriented X3.? No acute distress.? Head: Normocephalic. Eyes: Sclera is white. Neck: Normal inspection.? Neck supple.? CVS: Normal heart rate and rhythm.? Pulses normal.? Respiratory: No respiratory distress.? Skin: Fluid filled blisters on RLE, LLE, and LUE. Erythema and shininess to LLE. discharge is clear. Extremities: No lower extremity edema.? Neuro: Oriented X 3.? No motor deficit.? No sensory deficit. Assessment & Plan Assessment & Plan (1) Poison cheryl: Comment: Will give patient prednisone taper. Patient has also been instructed she can utilize ibuprofen and, motion Code(s): L23.7 - Allergic contact dermatitis due to plants, except food (2) Cellulitis: Comment: Will give cephalexin. Code(s): L03.90 - Cellulitis, unspecified Qualifiers: Site of cellulitis: extremity Site of cellulitis of extremity: lower extremity Laterality: left Qualified Code(s): L03.116 - Cellulitis of left lower limb Plan: Take your medications as prescribed. If you were prescribed antibiotics today, it is important that you take your medication to their entirety, do not skip any doses, do not finish them early. Follow-up with your primary care provider this week. Return to the emergency department with new or worsening symptoms. Such as fevers, chills, chest pain, shortness of breath, nausea, vomiting, dizziness, headache, vision changes, lethargy In case of emergency call 911 Plan Follow up with pcp. Medications: New prednisone 10 mg orally Take 4 tablets for four days, Take 2 tablets for four days, take 1 tablet for four days; see taper instructions 28 tabs 0RF sulfamethoxazole-trimethoprim 800-160 mg (Bactrim DS) 1 tab PO Q12H 14 tabs 0RF Coding Level of Care Code Est Pt Level 3 (55808) Diagnoses Poison cheryl L23.7 Cellulitis of left lower extremity L03.116 Site of cellulitis: extremity Site of cellulitis of extremity: lower extremity Laterality: left Time Spent (min) 22
== END 2023-10-25 14:18 | disposition home or self-care (01) ==
PROVIDERS: PCP Internal Medicine; Visit Provider Nurse Practitioner Primary Care
DX: L23.7 Allergic contact dermatitis due to plants, except food (principal); L03.116 Cellulitis of left lower limb
CPT/HCPCS: 99213

== ENCOUNTER 2023-10-25 15:04 | Outpatient (REF) | payer OTHER, SELFPAY ==
--- NOTE | ~2023-10-25 | US_ITS ---
EXAMINATION: US PELVIS CLINICAL INFORMATION: Leiomyoma, massive, cervix. Last menstrual period February 2023. COMPARISON: Pelvic ultrasound of February 26, 2019. TECHNIQUE: Ultrasound of the pelvis is performed using both transabdominal and transvaginal transducers along with Doppler. Transvaginal imaging is performed due to inadequate visualization transabdominally. FINDINGS: Uterus is anteverted and measures 7.9 x 3.7 x 5.2 cm. 2.9 x 2.7 x 2.0 cm fibroid, previously 2.2 x 2.1 x 1.9 cm. 1.5 x 1.3 x 1.6 cm fibroid, previously 2.2 x 2.1 x 1.9 cm. 1.5 x 1.3 x 1.6 cm fibroid, previously 2.2 x 2.1 x 1.9 cm. 1.0 x 1.2 x 1.2 cm fibroid, previously 0.9 x 0.6 x 1.3 cm. No significant free fluid. Nabothian cysts. Uterine volume 79.5 mL. Right ovary measures 1.2 x 1.1 x 1.4 cm, volume 1.0 mL. Left ovary measures 2.3 x 1.9 x 2.3 cm, volume 5.3 mL. Bilateral ovaries are unremarkable. US/US pelvic and transvaginal IMPRESSION: Fibroid uterus as detailed above. Endometrial thickness is 6 mm which can be abnormal in a postmenopausal patient. Correlation with clinical exam and gynecologic consultation recommended to determine further management including possible biopsy.
== END 2023-10-25 15:05 | disposition home or self-care (01) ==
LOC: HO.US 15:04
PROVIDERS: PCP Internal Medicine; Visit Provider Advanced Practice Midwife
DX: D21.9 Benign neoplasm of connective and other soft tissue, unspecified (principal); N88.8 Other specified noninflammatory disorders of cervix uteri
CPT/HCPCS: 76830; 76856

== ENCOUNTER 2023-11-22 10:10 | Outpatient (REF) | payer OTHER, SELFPAY | END 2023-11-22 10:11 | disposition home or self-care (01) | LOC: HO.MAMMO 10:10 | PROVIDERS: PCP Internal Medicine; Visit Provider Internal Medicine | DX: Z12.31 Encounter for screening mammogram for malignant neoplasm of breast (principal) | CPT/HCPCS: 77063; 77067 ==

== ENCOUNTER → 2023-11-22 10:15 | Outpatient (BNV) | payer OTHER, SELFPAY | PROVIDERS: PCP Internal Medicine; Visit Provider Radiology Diagnostic Radiology | DX: Z12.31 Encounter for screening mammogram for malignant neoplasm of breast (principal) | CPT/HCPCS: 77063; 77067 ==

== ENCOUNTER 2023-12-13 08:26 | Outpatient (AMB) | payer OTHER, SELFPAY ==
--- NOTE | 2023-12-13 08:28 | A.OFFVIS_ITS ---
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 She has a history of cervical mass. History of fibroids, myomectomy in [place]. LMP 03/11/2023. She reports discomfort with intimacy. [facility] Medical History Pure hypercholesterolemia Overweight (BMI 25.0-29.9) Helicobacter pylori gastritis Constipation Impaired fasting glucose Iron deficiency anemia Mammogram normal (~06/2019) Uterine myoma Amenorrhea Surgical History History of esophagogastroduodenoscopy (EGD) Hx of colonoscopy Hx of myomectomy (~2014) Family History Brother Colon cancer Other No significant family history Social History Household Members Other:: Housing: House Alcohol intake: never Patient Tobacco Use Status: Never used Tobacco e-Cigarette/Vaping Use: Never Used Second Hand Smoke Exposure: No service: No Current occupational status: employed 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 Current occupational exposures/hazards: No Cognitive needs: No Hearing needs: No Vision needs: Yes Female Reproductive History Menstrual Age of Menarche: 16 Review of Systems Const All systems reviewed & are unremarkable except as noted in HPI and below Physical Exam Vital Signs: Last Vital Signs BP 110/66 12/13/23 08:29 BMI result Body Mass Index 26.1 Const General: cooperative, healthy appearing and no acute distress Orientation/consciousness: patient oriented x3 GI Inspection: Yes normal to inspection Palpation (GI): Soft to palpation and Other GI palpation findings present (Nontender) Rectal Exam - Female: visual inspection normal General: Yes bladder normal to palpation External Female Exam: normal appearance of the urethra Speculum Exam - Vagina: normal appearance of the vagina, normal palpation and normal vaginal discharge Speculum Exam - Cervix: normal appearance of the cervix, normal palpation and Cervical mass present (Protruding from the cervical os) Bimanual exam- vagina & uterus: normal bimanual exam, normal palpation, uterine size normal, bladder normal to palpation, normal palpation, uterine shape normal and non-tender Bimanual Exam- Adnexa, other: normal adnexae Neuro General: patient oriented x3 Results Reviewed Results Reviewed: [address] [address] Ultrasound Report Signed Patient: Dionicio Smith MR#: [id number] : 1970 Acct:[id number] Age/Sex: 52 / F ADM Date: 10/25/23 Loc: HO.US Attending Dr: Lola Palencia CNM Ordering Physician: Lola Palencia CNM Date of Service: 10/25/23 Procedure(s): US pelvic and transvaginal Accession Number(s): [id number] cc: Tej Lanza MD; Lola Palencia CNM~ EXAMINATION: US PELVIS CLINICAL INFORMATION: Leiomyoma, massive, cervix. Last menstrual period February 2023. COMPARISON: Pelvic ultrasound of February 26, 2019. TECHNIQUE: Ultrasound of the pelvis is performed using both transabdominal and transvaginal transducers along with Doppler. Transvaginal imaging is performed due to inadequate visualization transabdominally. FINDINGS: Uterus is anteverted and measures 7.9 x 3.7 x 5.2 cm. 2.9 x 2.7 x 2.0 cm fibroid, previously 2.2 x 2.1 x 1.9 cm. 1.5 x 1.3 x 1.6 cm fibroid, previously 2.2 x 2.1 x 1.9 cm. 1.5 x 1.3 x 1.6 cm fibroid, previously 2.2 x 2.1 x 1.9 cm. 1.0 x 1.2 x 1.2 cm fibroid, previously 0.9 x 0.6 x 1.3 cm. No significant free fluid. Nabothian cysts. Uterine volume 79.5 mL. Right ovary measures 1.2 x 1.1 x 1.4 cm, volume 1.0 mL. Left ovary measures 2.3 x 1.9 x 2.3 cm, volume 5.3 mL. Bilateral ovaries are unremarkable. US/US pelvic and transvaginal IMPRESSION: Fibroid uterus as detailed above. Endometrial thickness is 6 mm which can be abnormal in a postmenopausal patient. Correlation with clinical exam and gynecologic consultation recommended to determine further management including possible biopsy. Dictated By: Abi Oneal MD Signed By: <Electronically signed by Abi Oneal MD in OV> 11/16/23 1053 DD/ 1540 TD/TT: Central Communications Specialist: Assessment & Plan Assessment & Plan (1) Fibroid: Code(s): D21.9 - Benign neoplasm of connective and other soft tissue, unspecified Category: Medical (2) Cervical mass: Code(s): N88.8 - Other specified noninflammatory disorders of cervix uteri Category: Medical Plan Discussed: Ultrasound findings including review of multiple fibroids. Consult with Dr. Roblero due to cervical mass. Counseled re: Leiomyoma: common pelvic neoplasm. Differential diagnosis-may include leiomyosarcoma which is a rare uterine sarcoma 3-7/100,000, difficult to distinguish from fibroids on ultrasound from uterine sarcoma's. Unlikely any single test will have a highly positive predictive value. Hysterectomy is not recommended for sole purpose of excluding malignant neoplasm. Report any PMB/AUB. Pelvic pressure, bloating, or pain. Consult for surgical exploration verses expectant management offered. Await consult for plan of care for surgical considerations. Expectant management follow up yearly for stability. Referral to MD if indicated for level of care. All of her questions and concerns were addressed to the best of my ability and shared decision making. She is agreeable to the plan of care. This note is constructed using voice recognition software. While every effort has been made to ensure accuracy, envelope sealer operator errors may have been included. Coding Level of Care Code Est Pt Level 3 (65846) Diagnoses Fibroid D21.9 Cervical mass N88.8
[2023-12-13 08:29] VITALS: BP 110/66; BMI 26.1
== END 2023-12-13 09:09 | disposition home or self-care (01) ==
LOC: HO.HWS 08:26
PROVIDERS: PCP Internal Medicine; Visit Provider Advanced Practice Midwife
DX: D21.9 Benign neoplasm of connective and other soft tissue, unspecified (principal); N88.8 Other specified noninflammatory disorders of cervix uteri
CPT/HCPCS: 99213

== ENCOUNTER → 2023-12-13 08:26 | Outpatient (BNVA) | payer OTHER, SELFPAY | PROVIDERS: PCP Internal Medicine; Visit Provider Advanced Practice Midwife | DX: D21.9 Benign neoplasm of connective and other soft tissue, unspecified (principal); N88.8 Other specified noninflammatory disorders of cervix uteri | CPT/HCPCS: 99212 ==

== ENCOUNTER 2024-02-14 09:16 | Outpatient (AMB) | payer OTHER, SELFPAY ==
[2024-02-14 09:28] VITALS: BP 120/82; PULSE 71; O2SAT 97; BMI 26.2
--- NOTE | 2024-02-14 09:28 | A.OFFPC_ITS ---
Vital Signs 02/14/24 09:28 Height 5 ft 6 in Weight 162 lb 2 oz BMI 26.2 BP 120/82 Blood Pressure Location Lt brachial Position Sitting Pulse 71 Pulse Source Pulse Oximeter Pulse Oximetry (%) 97 Oxygen Delivery Method Room Air Intake Visit Reasons: gastritis, hyperlipidemia Architect Marine Required: No Accompanied by: Self / Same As Patient Allergies No Known Allergies [No Known Allergies*] Allergy (Verified 02/14/24 09:45) Medication List - Last Reconciled 02/14/24 by Tej Lanza MD loratadine (Alavert) 10 mg PO DAILY PRN mometasone 0.1% 1 appl topical DAILY PRN [id number]-lfc-[id number] sulfate 4.5 mg iron (One Daily Multivitamins with Minerals) 1 tab PO DAILY omega-3 fatty acids 500 mg PO DAILY Tobacco use date assessed: 02/14/24 Dental Screening Dental Screen Date: 02/14/24 Did you have a dental visit in the last 12 months?: No Did you have a dental problem in the last 6 months where you did not have access to dental care?: No Was dental information given to patient?: Patient has dentist HPI gastritis, hyperlipidemia HPI Details Patient comes in today for her follow up visit States that he feels okay except for frequent sensation of numbness in both of her hands - states that this has been going on for a while now She denies any pain in her hands or wrists Denies any neck pain although the area on the right side of her neck in between her neck and right shoulder often feels tight She also denies any pain in her shoulders or elbows and states that even with the numbness in her hands, she has not noticed any loss of strength in her hands or arms She denies any headaches or dizziness Denies any chest pains, no SOB No nausea/vomiting, no abdominal pain No change in bowel habits noted States that she has not been taking her Omeprazole for several weeks now as her previous GI symptoms have all cleared up with Tx [facility] Medical History Pure hypercholesterolemia Overweight (BMI 25.0-29.9) Helicobacter pylori gastritis Constipation Impaired fasting glucose Iron deficiency anemia Mammogram normal (~06/2019) Uterine myoma Amenorrhea Surgical History History of esophagogastroduodenoscopy (EGD) Hx of colonoscopy Hx of myomectomy (~2014) Family History Brother Colon cancer Other No significant family history Social History Household Members Other:: Housing: House Alcohol intake: never Patient Tobacco Use Status: Never used Tobacco e-Cigarette/Vaping Use: Never Used Second Hand Smoke Exposure: No service: No Current occupational status: employed 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 1. Little interest or pleasure in doing things: not at all 2. Feeling down, depressed, or hopeless: not at all 3. Trouble falling or staying asleep, or sleeping too much: not at all 4. Feeling tired or having little energy: not at all 5. Poor appetite or overeating: not at all 6. Feeling bad about yourself - or that you are a failure or have let yourself or your family down: not at all 7. Trouble concentrating on things, such as reading the newspaper or watching television: not at all 8. Moving or speaking so slowly that other people could have noticed. Or the opposite - being so fidgety or restless that you have been moving around a lot more than usual: not at all 9. Thoughts that you would be better off or of hurting yourself in some way: not at all Total score: 0 Depression Screening Interpretation: Negative Depression Screening Done: Yes 50859 - PHQ-9 Billing: Yes Source: Developed by Drs. Collin Mireles, Nini Hammer, Rodney Hollingsworth and colleagues, with an educational alma from [employer]. Thrive Questionnaire Date Thrive assessed: 02/14/24 I am a: Patient What is your living situation today?: I have a steady place to live Within the past 12 months, did the food you bought not last and you didn't have the money to get more?: Never true Within the past 12 months, did you worry whether your food would run out before you got money to buy more?: Never true Do you have trouble paying for medicines?: No Do you have trouble getting transportation to medical appointments?: No Do you have trouble paying your heating and electricity bill?: No Do you have trouble taking care of your child, family member or friend?: No Do you have trouble with day-to-day activities such as bathing, preparing meals, shopping, managing finances, etc.?: No Are you currently unemployed and looking for a job?: No Are you interested in more education?: No Please select the resources that you would like help with: None Currently or been in a relationship where the following occur: No concerns reported THRIVE Score: 0 AUDIT C Alcohol Use Questionnaire (AUDIT-C) 1. How often do you have a drink containing alcohol?: Never 3. How often do you have six or more drinks on one occasion?: Never Total Score: 0 Score Reviewed/Action Taken: Yes SIMIN-7 AMB Questionnaire SIMIN-7 Date SIMIN - 7 assessed: 02/14/24 Feeling nervous, anxious, or on edge: 0 = Not at all Not being able to stop or control worryin = Not at all Worrying too much about different things: 0 = Not at all Trouble relaxin = Not at all Being so restless that it is hard to sit still: 0 = Not at all Becoming easily annoyed or irritable: 0 = Not at all Feeling afraid as if something awful might happen: 0 = Not at all Total SIMIN-7 score (0-4 normal; 5-9 mild; 10-14 moderate; 15-21 severe): 0 Source: Developed by Drs. Collin Mireles, Nini Hammer, Rodney Hollingsworth and colleagues, with an educational alma from [employer]. Review of Systems Const Denies chills, Denies fatigue, Denies fever(s) and Denies headache(s) ENT Denies dysphagia, Denies dizziness, Denies otalgia, Denies headache(s), Denies neck pain, Denies odynophagia and Denies sore throat Card Denies chest pain, Denies palpitations and Denies dyspnea Resp Denies cough and Denies dyspnea GI Denies abdominal pain, Denies constipation, Denies dysphagia, Denies heartburn, Denies diarrhea, Denies nausea, Denies odynophagia and Denies vomiting Denies difficulty voiding, Denies nocturia, Denies dysuria and Denies urinary urgency Musc Denies back pain, Denies arthralgias, Denies joint swelling, Denies neck pain and Reports numbness (frequent - in both hands) Skin/Breast Denies rash Neuro Denies dizziness, Denies headache(s) and Reports numbness (frequent - in both hands) Endo Denies fatigue and Denies palpitations Physical exam (Primary Care) Vital Signs: Last Vital Signs Pulse 71 02/14/24 09:28 BP 120/82 02/14/24 09:28 Pulse Ox 97 02/14/24 09:28 Oxygen Delivery Method Room Air 02/14/24 09:28 BMI result Body Mass Index 26.2 Tobacco/Smoking Status: Tobacco use Status Tobacco use date assessed 02/14/24 02/14/24 09:31 Patient Tobacco Use Status Never used Tobacco 02/14/24 09:31 e-Cigarette/Vaping Use Never Used 02/14/24 09:31 PHQ-9: PHQ-9 Score PHQ-9: Total score 0 02/14/24 09:31 Depression Screening Interpretation: Negative Thrive Assessment: Date of Thrive Assessment Date Thrive assessed 02/14/24 02/14/24 09:31 Currently or been in a relationship where the following occur: No concerns reported Const General: no acute distress and alert HENMT Ears: TM's normal bilaterally and EAC's normal Throat: Yes posterior oropharynx normal and Yes tonsils normal (no TP congestion) Neck Neck: Yes no lymphadenopathy and Yes supple Thyroid: Thyroid normal Resp Auscultation: clear to auscultation bilaterally, no rales and no wheezes Cardio Rate: regular rate Rhythm: regular rhythm Heart sounds: no murmurs GI Palpation (GI): Soft to palpation and nontender Auscultation: normal bowel sounds General: Yes no CVA tenderness Back/Spine/Pelvis Back: no CVA tenderness Thoracic/Lumbar Spine: No lumbar spinal tenderness Skin Rashes: no rashes Extrem General: Yes no clubbing, cyanosis or edema Right upper extremity: elbow/forearm Details: no tenderness, wrist Details: no tenderness and Extremity exam: right hand Details: no tenderness Left upper extremity: elbow/forearm Details: no tenderness, wrist (non-tender on exam) and hand Details: no tenderness Assessment and Plan Assessment & Plan (1) Paresthesia of hand, bilateral: Code(s): R20.2 - Paresthesia of skin Plan: Will send her for NCV and EMG of both upper extremities for further evaluation Will also include Magnesium level, ESR, B12 level with her labs next month for further evaluation (2) Helicobacter pylori gastritis: Comment: S/P Tx in October 2022 Code(s): K29.70 - Gastritis, unspecified, without bleeding; B96.81 - Helicobacter pylori [H. pylori] as the cause of diseases classified elsewhere Plan: Patient reports that her abdominal symptoms (pain) have improved with Tx and she no longer has any recurrence of her previous GI symptoms S/P Tx for H. pylori in 10/2022 Reinforced dietary restrictions She was on Omeprazole 40 mg QD but is currently no longer taking it States that she took Omeprazole for a couple of months when it was prescribed and stopped it afterwards as her stomach was feeling much better then She has not noticed any recurrence of symptoms since she stopped her Rx Is advised that she can just take it PRN for now Follow up with GI as scheduled (3) RBC microcytosis: Code(s): R71.8 - Other abnormality of red blood cells Plan: Suspect thalassemia as her iron function studies were normal when checked last year Her H/H remained normal on her recent labs and her microcytosis and hypochromia persisted Hgb electrophoresis done in June 2023 revealed microcytosis and NORMAL hemoglobin pattern - this may be seen in iron deficiency and alpha thalassemia and recommended to consider genetic counseling if appropriate (4) Pure hypercholesterolemia: Code(s): E78.00 - Pure hypercholesterolemia, unspecified Plan: Reinforced low cholesterol diet Her cholesterol levels have improved from previous when they were last checked in September 2023 Will have her recheck her labs and fasting lipids next month for follow up (5) Impaired fasting glucose: Code(s): R73.01 - Impaired fasting glucose Plan: Her FBS was still slightly elevated at 106 mg/dl on her labs back in September 2023; HgbA1c was at 6.4%, which places her in the borderline diabetes category Reinforced low calorie/low carb diet and regular exercise Will recheck her HgbA1c and FBS next month for follow up (6) Allergic rhinitis: Code(s): J30.9 - Allergic rhinitis, unspecified Qualifiers: Allergic rhinitis trigger: pollen Allergic rhinitis seasonality: seasonal Qualified Code(s): J30.1 - Allergic rhinitis due to pollen Plan: Continue OTC Alavert 10 mg QD PRN (7) Constipation: Code(s): K59.00 - Constipation, unspecified Qualifiers: Constipation type: unspecified constipation type Qualified Code(s): K59.00 - Constipation, unspecified Plan: Encouraged again increased oral fluids and dietary fiber She used to take Miralax 17 gm QD but states that she has not needed to take anything for her bowels at this time (8) Overweight (BMI 25.0-29.9): Code(s): E66.3 - Overweight Plan: Reinforced diet/exercise as tolerated/lose weight Plan To return as scheduled next month for her annual physical examination Patient is advised to get follow up labs (ordered) done BEFORE she comes in for her appointment next month Orders: Orders NE electromyogram (EMG) Today R20.2 - Paresthesia of skin Complete Blood Count Auto Diff 03/03/24 D64.9 - Anemia, unspecified Lipid Panel 03/03/24 E78.00 - Pure hypercholesterolemia, unspecified TSH reflex Free T4 03/03/24 E78.00 - Pure hypercholesterolemia, unspecified UA CC w/rflx Micro + Cult 03/03/24 R30.0 - Dysuria Hemoglobin A1c 03/03/24 R73.01 - Impaired fasting glucose NE nerve conduction velocity Today R20.2 - Paresthesia of skin Comprehensive [place]. Panel Fast 03/03/24 E78.00 - Pure hypercholesterolemia, unspecified Vitamin D 25-OH Total 03/03/24 E55.9 - Vitamin D deficiency, unspecified Vitamin B12 and Folate 03/03/24 E53.8 - Deficiency of other specified B group vitamins, R20.2 - Paresthesia of skin Magnesium 03/03/24 R20.2 - Paresthesia of skin C Reactive Protein 03/03/24 R20.2 - Paresthesia of skin Erythrocyte Sedimentation Rate 03/03/24 R20.2 - Paresthesia of skin Rheumatoid Factor 03/03/24 R20.2 - Paresthesia of skin NOELLE Reflex Titer and Pattern 03/03/24 R20.2 - Paresthesia of skin Coding Level of Care Code Est Pt Level 4 (56190) Diagnoses Paresthesia of hand, bilateral R20.2 Helicobacter pylori gastritis K29.70; B96.81 RBC microcytosis R71.8 Pure hypercholesterolemia E78.00 Impaired fasting glucose R73.01 Seasonal allergic rhinitis due to pollen J30.1 Allergic rhinitis trigger: pollen Allergic rhinitis seasonality: seasonal Constipation, unspecified constipation type K59.00 Constipation type: unspecified constipation type Overweight (BMI 25.0-29.9) E66.3
== END 2024-02-14 09:55 | disposition home or self-care (01) ==
PROVIDERS: PCP Internal Medicine; Visit Provider Internal Medicine
DX: R20.2 Paresthesia of skin (principal); K29.70 Gastritis, unspecified, without bleeding; B96.81 Helicobacter pylori [H. pylori] as the cause of diseases classified elsewhere; R71.8 Other abnormality of red blood cells; E78.00 Pure hypercholesterolemia, unspecified; R73.01 Impaired fasting glucose; J30.1 Allergic rhinitis due to pollen; K59.00 Constipation, unspecified; E66.3 Overweight

== ENCOUNTER → 2024-02-14 09:16 | Outpatient (BNVA) | payer OTHER, SELFPAY | PROVIDERS: PCP Internal Medicine; Visit Provider Internal Medicine | DX: R20.2 Paresthesia of skin (principal); K29.70 Gastritis, unspecified, without bleeding; B96.81 Helicobacter pylori [H. pylori] as the cause of diseases classified elsewhere; E78.00 Pure hypercholesterolemia, unspecified; R71.8 Other abnormality of red blood cells; R73.01 Impaired fasting glucose; J30.1 Allergic rhinitis due to pollen; E66.3 Overweight | CPT/HCPCS: 99212 ==

== ENCOUNTER 2024-03-07 08:38 | Outpatient (REF) | payer OTHER, SELFPAY ==
[2024-03-07 09:09] LABS: MANUAL DIFF FLAG NO
[2024-03-07 09:19] LABS: Basophils Percent Auto 0.4 % (0-2); Eosinophils Absolute Auto 0.3 X10*3/uL (0.0-0.4); Eosinophils Percent Auto 6.9 % (0-4); Hematocrit 40.3 % (37.0-47.0); Hemoglobin 12.1 g/dl (12.0-16.0); Imm Gran Abs Auto 0.01 X10*3/uL (0.00-0.03); Imm Gran Pct Auto 0.2 % (0.0-0.4); Lymphocytes Absolute Auto 1.4 X10*3/uL (1.2-4.9); Lymphocytes Percent Auto 29.8 % (20-40); Mean Corpuscular Hemoglobin 20.5 pg (27.0-33.0); Mean Corpuscular Volume 68.4 fL (80.0-98.0); Mean Platelet Volume 9.9 fL (9.4-12.3); Monocytes Absolute Auto 0.4 X10*3/uL (0.1-1.2); Monocytes Percent Auto 7.8 % (2-11); Neutrophils Absolute Auto 2.5 x10*3/uL (2.0-8.3); Neutrophils Percent Auto 54.9 % (45-73); Platelet Count 231 X10*3/uL (160-400); Red Blood Count 5.89 X10*6/uL (4.20-5.50); Red Cell Distribution Width 16.1 % (11.0-16.0); White Blood Count 4.6 X10*3/uL (4.8-10.8)
[2024-03-07 09:27] LABS: Estimated Average Glucose 134 mg/dL; Hemoglobin A1C 140.5084 umol/L; Hemoglobin A1c % 6.3 % (<6.0); Total Hemoglobin (HGBA1C) 3113.1305 umol/L
[2024-03-07 09:49] LABS: Appearance Urine Clear; Color Urine Yellow; Glucose Urine UA Negative (Negative); Leukocyte Esterase Urine Moderate (2+) (Negative); Nitrite Urine Negative (Negative); PH 5.5 (5.0-9.0); UMIC TRIGGER UACC YES; Urine Blood Negative (Negative); Urine Ketones Negative (Negative); Urine Protein Negative (Neg-Trace)
[2024-03-07 09:56] LABS: Erythrocyte Sedimentation Rate 5 MM/HR (0-20)
[2024-03-07 09:57] LABS: Bacteria Urine None Seen (None Seen); Hyaline Casts Urine 0-2 /LPF (0-2); RBC Urine 0-2 /HPF (0-2); Squamous Epithelial Cell Urine 0-2 /HPF (0-2); UACC Culture Trigger YES
[2024-03-07 09:59] LABS: Alanine Aminotransferase 42 U/L (0-31); Albumin Level 4.2 g/dL (3.5-5.0); Alkaline Phosphatase 85 U/L (39-117); Anion Gap 8 (12-20); Aspartate Amino Transferase 27 U/L (5-31); Bilirubin Total 0.4 mg/dL (0.0-1.0); Blood Urea Nitrogen 13 mg/dL (9-16); C Reactive Protein < 0.10 mg/dL (< or = 0.50); Calcium 9.2 mg/dL (8.4-10.2); Carbon Dioxide 28 mmol/L (22-29); Chloride 109 mmol/L (96-108); Cholesterol 197 mg/dL (<200); Estimated Glomerular Filt Rate > 60; Glucose Fasting 116 mg/dL (60-99); HDL Cholesterol 52 mg/dL (>40); LDL Cholesterol Calculated 124 mg/dL (<100); Potassium 4.2 mmol/L (3.3-5.1); Sodium 141 mmol/L (135-145); Total Protein 7.1 g/dL (6.5-8.0); Triglycerides 105 mg/dL (<150)
[2024-03-07 10:20] LABS: TSH reflex Free T4 0.67 uIU/mL (0.32-4.0); Vitamin D 25-OH Total 35.7 ng/mL (>30)
[2024-03-07 10:26] LABS: Vitamin B12 967 pg/mL (200-900)
[2024-03-07 11:39] LABS: Rheumatoid Factor < 13.0 IU/mL (<15.0)
[2024-03-11 13:13] LABS: Anti Nuclear Antibody Pattern Nuclear, Homogeneous; Anti Nuclear Antibody Screen POSITIVE (NEGATIVE)
== END 2024-03-07 08:39 | disposition home or self-care (01) ==
LOC: HO.LAB 08:38
PROVIDERS: PCP Internal Medicine; Visit Provider Internal Medicine
DX: R20.2 Paresthesia of skin (principal); D64.9 Anemia, unspecified; E78.00 Pure hypercholesterolemia, unspecified; R73.01 Impaired fasting glucose; E55.9 Vitamin D deficiency, unspecified; E53.8 Deficiency of other specified B group vitamins
CPT/HCPCS: 36415; 80053; 80061; 81001; 82306; 82607; 82746; 83036; 83735; 84443; 85025; 85652; 86038; 86039; 86140; 86431; 87086

== ENCOUNTER 2024-03-13 15:49 | Outpatient (AMB) | payer OTHER, SELFPAY ==
[2024-03-13 15:56] VITALS: BP 126/80; PULSE 70; O2SAT 97; BMI 26.8
--- NOTE | 2024-03-13 15:56 | MHC.PC.OV ---
Vital Signs 03/13/24 15:56 Height 5 ft 6 in Weight 166 lb 2 oz BMI 26.8 BP 126/80 Blood Pressure Location Lt brachial Position Sitting Pulse 70 Pulse Source Pulse Oximeter Pulse Oximetry (%) 97 Oxygen Delivery Method Room Air Intake Visit Reasons: Annual Exam Nitroglycerin Supervisor Required: No Accompanied by: Self / Same As Patient Allergies No Known Allergies [No Known Allergies*] Allergy (Verified 03/13/24 16:34) Medication List - Last Reconciled 03/13/24 by Tej Lanza MD loratadine (Alavert) 10 mg PO DAILY PRN mometasone 0.1% 1 appl topical DAILY PRN urdogjob-amt-oohtsub sulfate 4.5 mg iron (One Daily Multivitamins with Minerals) 1 tab PO DAILY omega-3 fatty acids 500 mg PO DAILY Tobacco use date assessed: 03/13/24 Dental Screening Dental Screen Date: 03/13/24 Did you have a dental visit in the last 12 months?: Yes Did you have a dental problem in the last 6 months where you did not have access to dental care?: No Was dental information given to patient?: Patient has dentist HPI Annual Exam HPI Details Patient comes in today for her annual physical examination States that she feels okay but has some skin lesions/moles on the middle of her back that she would like to have looked at - is concerned that they may turn into something she has to worry about later States that these lesions do not hurt but tends to itch at times She denies any headaches or dizziness Denies any chest pains, no SOB No nausea/vomiting, no abdominal pain but states that she has been experiencing recurrent heartburns lately No change in bowel habits noted She denies any acute urinary symptoms She is scheduled to be seen by gynecology in [place] (per patient's choice) early next month (around 03/27/24) for her uterine fibroids, anteverted uterus and possible endometrial thickening - she may need EMB for further evaluation She had her follow up labs done last week - to discuss her results She would also like to get her flu shot today Her annual mammogram was last done in November 2023 She had her pap smear and annual gynecology exam done back in September 2023 Her screening colonoscopy was done last year on 10/11/22 - was recommended for a repeat colonoscopy in 10 yrs (2032) but she may get one done in 5 years due to a strong family Hx of cancer (brother) [facility] Medical History (Updated 03/14/24 @ 05:18 by Tej Lanza MD) Alpha thalassemia Pure hypercholesterolemia Overweight (BMI 25.0-29.9) Helicobacter pylori gastritis Constipation Impaired fasting glucose Iron deficiency anemia Mammogram normal (~06/2019) Uterine myoma Amenorrhea Surgical History History of esophagogastroduodenoscopy (EGD) Hx of colonoscopy Hx of myomectomy (~2014) Family History Brother Colon cancer Other No significant family history Social History Household Members Other:: Housing: House Alcohol intake: never Patient Tobacco Use Status: Never used Tobacco e-Cigarette/Vaping Use: Never Used Second Hand Smoke Exposure: No service: No Current occupational status: employed 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 1. Little interest or pleasure in doing things: not at all 2. Feeling down, depressed, or hopeless: not at all 3. Trouble falling or staying asleep, or sleeping too much: not at all 4. Feeling tired or having little energy: not at all 5. Poor appetite or overeating: nearly every day 6. Feeling bad about yourself - or that you are a failure or have let yourself or your family down: not at all 7. Trouble concentrating on things, such as reading the newspaper or watching television: not at all 8. Moving or speaking so slowly that other people could have noticed. Or the opposite - being so fidgety or restless that you have been moving around a lot more than usual: not at all 9. Thoughts that you would be better off or of hurting yourself in some way: not at all Total score: 3 Depression Screening Interpretation: Negative Depression Screening Done: Yes 11277 - PHQ-9 Billing: Yes Source: Developed by Drs. Collin Mireles, Nini Hammer, Rodney Hollingsworth and colleagues, with an educational alma from [employer]. Thrive Questionnaire Date Thrive assessed: 03/13/24 I am a: Patient What is your living situation today?: I have a steady place to live Within the past 12 months, did the food you bought not last and you didn't have the money to get more?: Never true Within the past 12 months, did you worry whether your food would run out before you got money to buy more?: Never true Do you have trouble paying for medicines?: Yes Do you have trouble getting transportation to medical appointments?: No Do you have trouble paying your heating and electricity bill?: Yes Do you have trouble taking care of your child, family member or friend?: No Do you have trouble with day-to-day activities such as bathing, preparing meals, shopping, managing finances, etc.?: No Are you currently unemployed and looking for a job?: No Are you interested in more education?: Yes Please select the resources that you would like help with: Food, Paying for medicine, Daily support and Job search/training Currently or been in a relationship where the following occur: No concerns reported THRIVE Score: 1 AUDIT C Alcohol Use Questionnaire (AUDIT-C) 1. How often do you have a drink containing alcohol?: Monthly or less 2. How many drinks containing alcohol do you have on a typical day when you are drinking?: 1 or 2 3. How often do you have six or more drinks on one occasion?: Never Total Score: 1 Score Reviewed/Action Taken: Yes SIMIN-7 AMB Questionnaire SIMIN-7 Date SIMIN - 7 assessed: 03/13/24 Feeling nervous, anxious, or on edge: 0 = Not at all Not being able to stop or control worryin = Not at all Worrying too much about different things: 0 = Not at all Trouble relaxin = Not at all Being so restless that it is hard to sit still: 0 = Not at all Becoming easily annoyed or irritable: 0 = Not at all Feeling afraid as if something awful might happen: 0 = Not at all Total SIMIN-7 score (0-4 normal; 5-9 mild; 10-14 moderate; 15-21 severe): 0 Source: Developed by Drs. Collin Mireles, Nini Hammer, Rodney Hollingsworth and colleagues, with an educational alam from [employer]. Review of Systems Const Denies chills, Denies fatigue, Denies fever(s), Denies headache(s) and Denies malaise Eyes Denies blurry vision, Denies change in vision, Denies irritation and Denies itchy eyes ENT Denies dysphagia, Denies dizziness, Denies otalgia, Denies headache(s), Denies nasal congestion, Denies neck pain, Denies odynophagia, Denies sinus pain and Denies sore throat Card Denies chest pain, Denies rapid heart rate, Denies irregular heart rhythm, Denies palpitations and Denies dyspnea Resp Denies chest congestion, Denies cough, Denies dyspnea and Denies wheezing GI Denies abdominal pain, Denies bloating, Denies constipation, Denies dysphagia, Reports heartburn (recurrent lately), Denies diarrhea, Denies nausea, Denies odynophagia and Denies vomiting Denies hematuria, Denies urinary frequency, Denies dysuria, Denies urinary incontinence and Denies urinary urgency Musc Denies back pain, Denies arthralgias, Denies joint swelling, Denies muscle weakness and Denies neck pain Skin/Breast Denies breast pain, Denies breast mass, Denies change in pigmentation, Reports lesions (on the middle of her back - see HPI), Denies rash and Denies unusual bruising Neuro Denies dizziness, Denies headache(s) and Denies paresthesias Psych Denies anxiety and Denies depression Endo Denies fatigue and Denies palpitations Cirilo/Lymph Denies easy bruising Aller/Immun Denies itchy eyes and Denies wheezing Physical exam (Primary Care) Vital Signs: Last Vital Signs Pulse 70 03/13/24 15:56 BP 126/80 03/13/24 15:56 Pulse Ox 97 03/13/24 15:56 Oxygen Delivery Method Room Air 03/13/24 15:56 BMI result Body Mass Index 26.8 Tobacco/Smoking Status: Tobacco use Status Tobacco use date assessed 03/13/24 03/13/24 15:59 Patient Tobacco Use Status Never used Tobacco 03/13/24 15:59 e-Cigarette/Vaping Use Never Used 03/13/24 15:59 PHQ-9: PHQ-9 Score PHQ-9: Total score 12 03/13/24 16:34 Depression Screening Interpretation: Negative Thrive Assessment: Date of Thrive Assessment Date Thrive assessed 03/13/24 03/13/24 15:59 Currently or been in a relationship where the following occur: No concerns reported Const General: no acute distress, alert and awake Orientation/consciousness: patient oriented x3 HENMT Head: Yes normocephalic and Yes atraumatic Ears: external ears normal, TM's normal bilaterally and EAC's normal General nose exam: No nasal discharge present Face and sinus: Yes normal facial exam and Yes sinuses nontender Teeth and gingiva: dentition normal Throat: Yes posterior oropharynx normal and Yes tonsils normal (no TP congestion) Eyes Eyelids: Yes eyelids normal Conjunctivae: conjunctivae normal Pupils: Equal, round and reactive pupils present EOM: EOMs intact bilaterally Neck Neck: Yes no lymphadenopathy and Yes supple Thyroid: Thyroid normal Resp Auscultation: clear to auscultation bilaterally, no rales and no wheezes Cardio Rate: regular rate Rhythm: regular rhythm Heart sounds: no murmurs GI Palpation (GI): Soft to palpation, nontender and No hepatosplenomegaly present Auscultation: normal bowel sounds General: Yes no CVA tenderness Back/Spine/Pelvis Back: no CVA tenderness Thoracic/Lumbar Spine: thoracic and lumbar spine normal to inspection Skin Other: (+) 2 separate slightly raised keratotic and hyperpigmented skin lesions on the middle of her back Rashes: no rashes Neuro General: patient oriented x3, moves all extremities, no focal motor deficits and CN's II-XI intact bilaterally Cranial nerves: Yes Equal, round and reactive pupils present Cognition (Neuro): normal cognition Gait exam (Neuro): Normal gait present Extrem General: Yes no clubbing, cyanosis or edema Results Reviewed Results Reviewed: Laboratory Tests 03/07/24 03/07/24 09:06 09:08 WBC 4.6 L Hgb 12.1 Hct 40.3 Plt Count 231 ESR 5 Sodium 141 Potassium 4.2 Creatinine 0.69 Estimated GFR > 60 Fasting Glucose 116 H Hemoglobin A1c % 6.3 H Calcium 9.2 Magnesium 2.0 AST 27 ALT 42 H C-Reactive Protein < 0.10 Triglycerides 105 Cholesterol 197 LDL Cholesterol, Calc 124 H HDL Cholesterol 52 Vitamin B12 967 H 25-OH Vitamin D Total 35.7 TSH 0.67 Ur Specific [place] 1.010 Urine Protein Negative Urine Glucose (UA) Negative Urine Blood Negative Urine Nitrite Negative Ur Leukocyte Esterase Moderate (2+) H Rheumatoid Factor < 13.0 NOELLE Screen POSITIVE A NOELLE Titer 1:80 H NOELLE Pattern Nuclear, Homogeneous A Coding Level of Care Code Est Pt Prev Care 40-64y(25883) Diagnoses Annual physical exam Z00.00 Pure hypercholesterolemia E78.00 Impaired fasting glucose R73.01 Alpha thalassemia D56.0 Helicobacter pylori gastritis K29.70; B96.81 Seasonal allergic rhinitis due to pollen J30.1 Allergic rhinitis trigger: pollen Allergic rhinitis seasonality: seasonal Constipation, unspecified constipation type K59.00 Constipation type: unspecified constipation type Uterine leiomyoma, unspecified location D25.9 Uterine leiomyoma location: unspecified location Skin mole D22.9 Paresthesia of hand, bilateral R20.2 NOELLE positive R76.8 Overweight (BMI 25.0-29.9) E66.3 Assessment & Plan Assessment & Plan (1) Annual physical exam: Code(s): Z00.00 - Encounter for general adult medical examination without abnormal findings Category: Medical Plan: Results of her labs done last week reviewed and discussed with patient She is up-to-date with all of her cancer screenings (2) Pure hypercholesterolemia: Code(s): E78.00 - Pure hypercholesterolemia, unspecified Category: Medical Plan: Patient is advised that her cholesterol levels were okay but they have increased slightly from previous Reinforced low cholesterol diet Will have patient recheck her labs and fasting lipids in 4 months for follow up (3) Impaired fasting glucose: Code(s): R73.01 - Impaired fasting glucose Category: Medical Plan: Her HgbA1c was at 6.3% on her labs done last week; was at 6.4% a few months ago FBS was also still elevated at 116 mg/dl recently Reinforced low calorie/low carb diet and regular exercise Will recheck her HgbA1c and FBS in 4 months for follow up (4) Alpha thalassemia: Code(s): D56.0 - Alpha thalassemia Category: Medical Plan: Her H/H remained normal on her recent labs but her microcytosis and hypochromia persisted Her iron function studies were also normal when checked last year Hgb electrophoresis done in June 2023 revealed microcytosis and NORMAL hemoglobin pattern - this may be seen in iron deficiency and alpha thalassemia and have recommended to consider genetic counseling if appropriate No further intervention or evaluation is needed at this time (5) Helicobacter pylori gastritis: Comment: S/P Tx in October 2022 Code(s): K29.70 - Gastritis, unspecified, without bleeding; B96.81 - Helicobacter pylori [H. pylori] as the cause of diseases classified elsewhere Category: Medical Plan: Patient reports that her abdominal symptoms (pain) have improved with Tx - is S/P Tx for H. pylori in 10/2022 Reinforced dietary restrictions She was on Omeprazole 40 mg QD but is currently no longer taking it - states that she took Omeprazole for a couple of months when it was prescribed and stopped it afterwards as her stomach was feeling much better then As she reports experiencing recurrent symptoms of heartburns again lately, will have her go back on Omeprazole 40 mg QD Follow up with GI as scheduled (6) Allergic rhinitis: Code(s): J30.9 - Allergic rhinitis, unspecified Category: Medical Qualifiers: Allergic rhinitis trigger: pollen Allergic rhinitis seasonality: seasonal Qualified Code(s): J30.1 - Allergic rhinitis due to pollen Plan: Continue OTC Alavert 10 mg QD PRN (7) Constipation: Code(s): K59.00 - Constipation, unspecified Category: Medical Qualifiers: Constipation type: unspecified constipation type Qualified Code(s): K59.00 - Constipation, unspecified Plan: She is encouraged again on increased oral fluids and dietary fiber She used to take Miralax 17 gm QD but has not needed to take anything for her bowels lately (8) Uterine myoma: Code(s): D25.9 - Leiomyoma of uterus, unspecified Category: Medical Qualifiers: Uterine leiomyoma location: unspecified location Qualified Code(s): D25.9 - Leiomyoma of uterus, unspecified Plan: She is scheduled to be seen by gynecology in [place] (per patient's choice) in a couple of weeks on 03/27/2024 for her uterine fibroids, anterverted uterus and possible endometrial thickening - may need EMB for further evaluation (9) Skin mole: Code(s): D22.9 - Melanocytic nevi, unspecified Category: Medical Plan: Will refer her to dermatology for further evaluation and management (10) Paresthesia of hand, bilateral: Code(s): R20.2 - Paresthesia of skin Category: Medical Plan: She has been referred for EMG and NCV for further evaluation and she is scheduled to have these done next week on 03/20/2024 (11) NOELLE positive: Code(s): R76.8 - Other specified abnormal immunological findings in serum Category: Medical Plan: Have advised patient that her recent arthralgia work ups came back positive for NOELLE in a homogenous pattern, suggestive of lupus Will refer her to rheumatology for further evaluation and management (12) Overweight (BMI 25.0-29.9): Code(s): E66.3 - Overweight Category: Medical Plan: Reinforced diet/exercise as tolerated/lose weight Plan As requested, flu vaccine given to patient today Follow up in 4 months Orders: Orders Lipid Panel 4 Months E78.00 - Pure hypercholesterolemia, unspecified TSH reflex Free T4 4 Months E78.00 - Pure hypercholesterolemia, unspecified UA CC w/rflx Micro + Cult 4 Months R30.0 - Dysuria Influenza [id number] Immunization 03/13/24 Z23 - Encounter for immunization Comprehensive [place]. Panel Fast 4 Months E78.00 - Pure hypercholesterolemia, unspecified Hemoglobin A1c 4 Months R73.01 - Impaired fasting glucose Complete Blood Count Auto Diff 4 Months D56.0 - Alpha thalassemia Ferritin 4 Months R79.89 - Other specified abnormal findings of blood chemistry Referrals Dermatology Referral D22.9 - Melanocytic nevi, unspecified Rheumatology Referral R76.8 - Other specified abnormal immunological findings in serum Medications: New Fluarix Triv [id number] (PF) (flu vacc [id number] 6mos up(PF)) 0.5 mL IM ONCE 0.5 mL 0RF NS Z23 - Encounter for immunization Changed From omeprazole 40 mg PO DAILY 30 days 30 caps 1RF K29.70 - Gastritis, unspecified, without bleeding To omeprazole 40 mg PO DAILY 90 days 90 caps 1RF K29.70 - Gastritis, unspecified, without bleeding
== END 2024-03-13 16:58 | disposition home or self-care (01) ==
PROVIDERS: PCP Internal Medicine; Visit Provider Internal Medicine
DX: Z00.00 Encounter for general adult medical examination without abnormal findings (principal); E78.00 Pure hypercholesterolemia, unspecified; R73.01 Impaired fasting glucose; D56.0 Alpha thalassemia; K29.70 Gastritis, unspecified, without bleeding; B96.81 Helicobacter pylori [H. pylori] as the cause of diseases classified elsewhere; J30.1 Allergic rhinitis due to pollen; K59.00 Constipation, unspecified; D25.9 Leiomyoma of uterus, unspecified; D22.9 Melanocytic nevi, unspecified; R20.2 Paresthesia of skin; R76.8 Other specified abnormal immunological findings in serum; E66.3 Overweight

== ENCOUNTER → 2024-03-13 15:49 | Outpatient (BNVA) | payer OTHER, SELFPAY | PROVIDERS: PCP Internal Medicine; Visit Provider Internal Medicine | DX: Z00.00 Encounter for general adult medical examination without abnormal findings (principal); E78.00 Pure hypercholesterolemia, unspecified; R73.01 Impaired fasting glucose; D56.0 Alpha thalassemia; K29.70 Gastritis, unspecified, without bleeding; B96.81 Helicobacter pylori [H. pylori] as the cause of diseases classified elsewhere; J30.1 Allergic rhinitis due to pollen; K59.00 Constipation, unspecified; D25.9 Leiomyoma of uterus, unspecified; D22.9 Melanocytic nevi, unspecified; R20.2 Paresthesia of skin; R76.8 Other specified abnormal immunological findings in serum; E66.3 Overweight; Z68.26 Body mass index [BMI] 26.0-26.9, adult | CPT/HCPCS: 96127; 99396 ==

== ENCOUNTER 2024-03-20 08:16 | Outpatient (REF) | payer OTHER, SELFPAY ==
--- NOTE | 2024-03-20 08:22 | EMG_ITS ---
Bilateral median and ulnar motor and sensory studies were performed. Bilateral radial and median and lateral antecubital brachial sensory studies were performed, and paraspinal muscles were tested with a needle. IMPRESSION: 1. Moderately severe bilateral median neuropathy across carpal tunnel. 2. Mild bilateral ulnar neuropathy across cubital tunnel. MD BELTRAN Scott/KP / [id number]
== END 2024-03-20 08:17 | disposition home or self-care (01) ==
LOC: HO.NEURO 08:16
PROVIDERS: Visit Provider Internal Medicine
DX: R20.2 Paresthesia of skin (principal)
CPT/HCPCS: 95886; 95913

== ENCOUNTER 2024-06-19 08:55 | Outpatient (AMB) | payer OTHER, SELFPAY ==
[2024-06-19 08:57] VITALS: BP 110/82; PULSE 72; BMI 26.3
--- NOTE | 2024-06-19 08:57 | A.OFFVIS_ITS ---
Vital Signs 06/19/24 08:57 Height 5 ft 6 in Weight 163 lb 2.273 oz BMI 26.3 BP 110/82 Blood Pressure Location Rt brachial Position Sitting Pulse 72 Pulse Source Pulse Oximeter Intake Visit Reasons: + NOELLE Intake Note: New patient internally referred by Tej Lanza [facility] [place]. Presents for +NOELLE. Location? Right shoulder and elbow pain How long? Has had pain for about 5 years Rx used? Tylenol for pain as needed Hand Screen Printer Required: Yes Hand Screen Printer Language: Cantonese [place]ian Hand Screen Printer Services: Hand Screen Printer Present Hand Screen Printer Name: Wicho [id number] Information Interpreted: non-clinical & clinical Accompanied by: Spouse Allergies No Known Allergies [No Known Allergies*] Allergy (Verified 06/19/24 09:06) Medication List - Last Reconciled 06/19/24 by Emmie Mathew MD meloxicam 7.5 mg PO DAILY PRN [id number]-qsn-patingw sulfate 4.5 mg iron (One Daily Multivitamins with Minerals) 1 tab PO DAILY omega-3 fatty acids 500 mg PO DAILY omeprazole 40 mg PO DAILY 90 days HPI Comments Details: Patient is a 53-year-old female of [place] descent, emigrated to [place] in [place], with hyperlipidemia, allergic rhinitis, and chronic anemia secondary to alpha thalassemia who presents for evaluation of polyarthralgias in the setting of positive NOELLE Having chronic shoulder pain bilaterally, more so on the right and occasionally on the left. 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 - Patient notes that when she tries to put her hand to the back she feels more pain - Has not tried any OTC medications to help with the pain - No AM stiffness but does not tightness when she wakes up Elbow pain - right side - feels pain when she presses on it - also pain with movement - Pain is not present every day - No associated swelling Knee pain - No associated swelling - Feels pain when she presses on it - Pain is not worsened by prolonged standing - Has not tried any OTC remedies Denies rashes, photosensitivity, alopecia, nasal ulcers, sicca symptoms, lymphadenopathy, chest pain/shortness of breath, prolonged AM stiffness, foamy urine, lower extremity edema, muscle weakness, Raynaud's Will occasionally get ulcers in the mouth that resolve on their own Also denies history of seizure, CVA, psychosis, history of kidney problems, history of cytopenias, history of VTE including PE or DVTs OB History: Uncomplicated No history of miscarriages PFSH Medical History (Updated 06/19/24 @ 09:41 by Emmie Mathew MD) Alpha thalassemia Pure hypercholesterolemia Overweight (BMI 25.0-29.9) Helicobacter pylori gastritis Constipation Impaired fasting glucose Iron deficiency anemia Mammogram normal (~06/2019) Uterine myoma Amenorrhea Surgical History History of esophagogastroduodenoscopy (EGD) Hx of colonoscopy Hx of myomectomy (~2014) Family History Brother Colon cancer Other No significant family history Social History Household Members Other:: Housing: House Alcohol intake: never Patient Tobacco Use Status: Never used Tobacco e-Cigarette/Vaping Use: Never Used Second Hand Smoke Exposure: No service: No Current occupational status: employed 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 Current occupational exposures/hazards: No Cognitive needs: No Hearing needs: No Vision needs: Yes Female Reproductive History Menstrual Age of Menarche: 16 Review of Systems Const Details: Review of Systems Constitutional: Denies fever, chills, weight loss ENT: Denies vision changes, eye pain or eye redness, dental caries, dry mouth GI: Denies nausea, vomiting, diarrhea, abdominal pain, change in BM Pulm: Denies SOB, MOORE, hemoptysis, wheezing Cards: Denies chest pain, palpitations Skin: Denies Raynaud's, rash, nail changes, photosensitivity, AIR FORCE SENIOR OFFICER: Denies headaches, weakness, paresthesias, recurrent falls MSK: as per HPI All other systems reviewed and are unremarkable except noted above Physical Exam Vital Signs: Last Vital Signs Pulse 72 06/19/24 08:57 BP 110/82 06/19/24 08:57 BMI result Body Mass Index 26.3 Vital signs reviewed Physical Examination CONSTITUITIONAL Patient alert and cooperative. Well appearing and in no apparent painful distress HEENT Conjunctiva and sclera clear. ?Pupils equal round and reactive to light. ?No lymphadenopathy. ? CHEST/RESPIRATORY SYSTEM Normal respiratory effort and able to speak in complete sentences. ?Clear to auscultation bilaterally. ?No crackles, rales, rhonchi, wheezes heard. CARDIAC SYSTEM Regular rate and rhythm. ?S1 and S2 heard no murmurs. ?Radial pulses intact bilaterally MSK Hands: ?Good benefits specialist strength bilaterally. No deformities noted. ?No synovitis noted to the MCPs, PIPs or DIPs. ?No tenderness to palpation of these joints. Herbeden's nodes noted Wrists: ?Full range of motion at the wrists without pain. ?No tenderness to palpation or synovitis noted to the wrists. Elbows: Full range of motion without pain. Mild tenderness to palpation of the right lateral epicondyle. Pain exacerbated on resisted wrist flexion. Shoulders: Full range of motion without pain. No tenderness, weakness, swelling, increased warmth or erythema. Hips: Full range of motion without pain. Hip bursa: No tenderness to palpation Knees: ?Full range of motion. ?No tenderness, swelling, increased warmth or erythema.?No effusion or crepitations Ankles: Full range of motion. ?No tenderness, swelling, increased warmth or erythema.? Feet: ?Negative squeeze test. ?No tenderness to palpation or swelling of the MTPs. Tender points:?No tenderness to palpation of the bilateral trapezius, supraspinatus, greater trochanters, anterior costochondral junctions, bilateral gluteal areas, bilateral suboccipital muscle insertions SKIN Skin intact without rashes. Results Reviewed Results Reviewed: Laboratory Tests 03/07/24 09:08 WBC 4.6 L RBC 5.89 H Hgb 12.1 Hct 40.3 MCV 68.4 L MCH 20.5 L Plt Count 231 ESR 5 Sodium 141 Potassium 4.2 Chloride 109 H Carbon Dioxide 28 BUN 13 Creatinine 0.69 Calcium 9.2 Magnesium 2.0 AST 27 ALT 42 H Alkaline Phosphatase 85 C-Reactive Protein < 0.10 Total Protein 7.1 Albumin 4.2 25-OH Vitamin D Total 35.7 Rheumatoid Factor < 13.0 NOELLE Screen POSITIVE A NOELLE Titer 1:80 H Assessment & Plan Assessment & Plan (1) Arthralgia: Code(s): M25.50 - Pain in unspecified joint Category: Medical Qualifiers: Joint pain location: unspecified Qualified Code(s): M25.50 - Pain in unspecified joint Plan: #Arthralgias Patient with arthralgias involving her bilateral shoulders and right elbow. With respect to her shoulders I do not see any evidence of any AC or glenohumeral joint abnormalities on examination. Negative impingement tests including resisted external rotation, lift-off and empty can test. I suspect that her shoulder pain is mechanical in nature. We will check x-rays and I recommended meloxicam 7.5 mg p.r.n. for pain. With respect to her elbow she had tenderness to palpation of the right lateral epicondyle and this pain was exacerbated with resisted wrist flexion. This is consistent with lateral epicondylitis likely exacerbated by her repetitive movements at her job. Exercises given and she can also take meloxicam for this. At this time I do not believe that she has lupus or any other autoimmune connective tissue disease. She does have early changes of Heberden's nodes involving her DIPs consistent with developing osteoarthritis in her hands. No further workup or intervention at this time. She can follow up with her PCP for refills of the meloxicam. Plan - Send for XRs knees, right elbow and bilateral shoulders - Exercises given for lateral epicondylitis - Meloxicam 7.5mg prn - RTC prn (2) NOELLE positive: Code(s): R76.8 - Other specified abnormal immunological findings in serum Category: Medical Plan: #Positive NOELLE The presence of antinuclear antibodies (NOELLE) is mainly associated with connective tissue diseases (CTD). ?However, their presence is found in healthy people especially in women and patients >65. ?In healthy individuals, the frequency of NOELLE has been shown to be 31.7% of individuals at 1:40 serum dilution, 13.3% at 1:80, 5.0% at 1:160, and 3.3% at 1:320 (2). Some drugs and xenobiotics are also important for the development of NOELLE (hydralazine, hydrochlorothiazide, minocycline, terbinafine, ciprofloxacin, furosemide, omeprazole). Moreover, the deficiency of vitamin D in the body of patients correlates with occurrence of these antibodies (1). At this time there is low suspicion for a connective tissue disease. ?No further blood work at this time 1. Sam?tony Chu, Angelo Tee, Roni Ken. Antinuclear antibodies in healthy people and non-rheumatic diseases - diagnostic and clinical implications. Reumatologia. 2018;56(4):243-248. doi: 10.5114/reum.2018.83289. Epub 2017Jan 20. PMID: 27880315; PMCID: [id number]. 2. Cordova EM, Margie TE, Fredis JS, Jewell B, Raiza R, Brian MJ, Sunny T, Marcelo JA, Judd JR, Giana RG, Yessenia RN, Raysa JS, Rosa Maria NF, Coreen RJ, Yossi Y, Da A, Ash MR, Rosanne DALE. Range of antinuclear antibodies in healthy individuals. Arthritis Rheum. 1996;40(9):1601-11. doi: 10.1002/art .[id number]. PMID: 1761657. Plan I spent 30 minutes reviewing the record and labs, taking a history, examining the patient, discussing the treatment plan and documenting in the medical record Orders: Orders XR shoulder LT min 2V Today M25.50 - Pain in unspecified joint XR knee standing BI Today M25.50 - Pain in unspecified joint XR knee RT 3V Today M25.50 - Pain in unspecified joint XR knee LT 3V Today M25.50 - Pain in unspecified joint XR elbow RT min 3V Today M25.50 - Pain in unspecified joint XR shoulder RT min 2V Today M25.50 - Pain in unspecified joint Medications: New meloxicam 7.5 mg PO DAILY PRN 90 tabs 0RF pain Coding Level of Care Code New Pt Level 3 (05217) Diagnoses Arthralgia, unspecified joint M25.50 Joint pain location: unspecified NOELLE positive R76.8
--- OUTSIDE RECORDS SUMMARY | 2024-06-19 09:17 | XMS_ITS | Clinical Summary ---
Author Organization [facility] Address [address] [place] [address] Care Team Providers Care Senior Product Development Engineer Name Role Phone Pcp, No Primary Care Provider Unavailabl e Medications No known medications Active Problems No known active problems Social History Tobacco Use Types Packs/Day Years Used Date Smoking Tobacco: Never Assessed Sex and Gender Information Value Date Recorded Sex Assigned at Female 07/28/2022 8:25 AM EST Gender Identity Female 07/28/2022 8:25 AM EST Sexual Orientation Choose not to disclose 2022 8:25 AM EST Last Filed Vital Signs Vital Sign Reading Time Taken Comments Blood Pressure - - Pulse - - Temperature 36.4 ??C (97.5 ??F) 07/27/2022 3:03 PM ES T Respiratory Rate - - Oxygen Saturation - - Inhaled Oxygen Concentration - - Weight - - Height - - Body Mass Index - - Plan of Treatment Health Maintenance Due Date Last Done Comments Hepatitis C Virus Screening 1971 HIV Screening 11/10/1984 DTaP/Tdap/Td Vaccines (1 - Tdap) 11/10/1990 Hepatitis B Vaccines (1 of 3 - 19+ 3-dose series) 11/10/1990 Pap Smear (Ages 21-65) 11/10/1992 Mammogram 2011 Colonoscopy 11/10/2016 Pneumococcal Vaccines 50+ (1 of 1 - PCV) 11/10/2021 Zoster (Shingles) Vaccine (1 of 2) 11/10/2021 Influenza Vaccine 12/22/2023 COVID-19 Vaccine ( - 2023-2 5 season) 2024 Pneumococcal Vaccine: Pediat elizabeth (0-5 Years) and At-Risk Patients (6 to 49 Years) Aged Out No longer eligible b ased on patient's age to complete this topic Care Teams Senior Product Development Engineer Relationship Specialty Start Date End Date Pcp, No PCP - General General Medicine 07/05/22
--- OUTSIDE RECORDS SUMMARY | 2024-06-19 09:17 | XMS_ITS ---
Author Name [facility] Organization Unknown Problems Problem Status Onset Date Problem Type Date of Resoluti on Source Encounter for screening laboratory testing for COVID-19 virus active EncounterDiagnosisAct [facility]
== END 2024-06-19 09:49 | disposition home or self-care (01) ==
PROVIDERS: PCP Internal Medicine; Visit Provider Student in an Organized Health Care Education/Training Program
DX: M25.50 Pain in unspecified joint (principal); R76.8 Other specified abnormal immunological findings in serum
CPT/HCPCS: 99203

== ENCOUNTER → 2024-06-19 08:55 | Outpatient (BNVA) | payer OTHER, SELFPAY | PROVIDERS: PCP Internal Medicine; Visit Provider Student in an Organized Health Care Education/Training Program | DX: M25.50 Pain in unspecified joint (principal); R76.8 Other specified abnormal immunological findings in serum | CPT/HCPCS: 99202 ==

== ENCOUNTER 2024-06-19 10:05 | Outpatient (REF) | payer OTHER, SELFPAY ==
--- NOTE | ~2024-06-19 | XR_ITS ---
CLINICAL HISTORY: M25.50 - Pain in unspecified joint 4 view right shoulder Comparison: None Findings: No fractures or dislocations. No significant arthritic change. No erosions. No radiopaque foreign body. IMPRESSION: 1. No acute findings This document has been electronically signed by: Gorge Borrego MD on 06/19/2024 15:31:25
--- NOTE | ~2024-06-19 | XR_ITS ---
CLINICAL HISTORY: M25.50 - Pain in unspecified joint AP standing view of bilateral knees, two views of the left knee Comparison: CR/SR - XR KNEE RT 4V - 06/19/24 10:39 EST CR - KNEE LEFT 4 VIEWS [id number] - 08/18/18 23:24 EDT Findings: No fractures or dislocations. No significant arthritic change or erosions. No joint effusion. No radiopaque foreign body. IMPRESSION: 1. No acute findings. This document has been electronically signed by: Gorge Borrego MD on 06/19/2024 15:31:00
--- NOTE | ~2024-06-19 | XR_ITS ---
CLINICAL HISTORY: M25.50 - Pain in unspecified joint 5 view left shoulder Comparison: None Findings: No fractures or dislocations. No significant arthritic change. No erosions. No radiopaque foreign body. IMPRESSION: 1. No acute findings This document has been electronically signed by: Gorge Borrego MD on 06/19/2024 15:31:14
--- NOTE | ~2024-06-19 | XR_ITS ---
CLINICAL HISTORY: M25.50 - Pain in unspecified joint 3 view right elbow Comparison: None Findings: No acute fractures or dislocations. No significant arthritic change or erosions. No joint effusion. No radiopaque foreign body. IMPRESSION: 1. No acute findings This document has been electronically signed by: Gorge Borrego MD on 06/19/2024 15:32:11
--- NOTE | ~2024-06-19 | XR_ITS ---
CLINICAL HISTORY: M25.50 - Pain in unspecified joint 2 view right knee Comparison: None Findings: Bones intact. No dislocations. No significant arthritic change or erosions. No joint effusion. No radiopaque foreign body. IMPRESSION: 1. No acute findings. This document has been electronically signed by: Gorge Borrego MD on 06/19/2024 14:28:28
--- OUTSIDE RECORDS SUMMARY | 2024-06-19 10:55 | XMS_ITS | Clinical Summary ---
Author Organization [facility] Address [address] [place] [address] Care Team Providers Care Manager Support Name Role Phone Pcp, No Primary Care [...] age to complete this topic Care Teams Manager Support Relationship Specialty Start Date End Date Pcp, No PCP - General General Medicine 07/05/22
--- OUTSIDE RECORDS SUMMARY | 2024-06-19 10:55 | XMS_ITS | Encounter Summary ---
Author Organization [facility] Address [address] [place] [address] Care Team Providers Care Auto Adjudication Specialist Name Role Phone Unavailable Primary Care Provider Unavailabl e Encounter Details Date Type Department Care Team (Late st Contact Info) Description 05/19/2023 Abstract [facility] [address] [place] [address] Honey Kirk [address] [place] [address] Social History Tobacco Use Types Packs/Day Years Used Date Smoking Tobacco: Never Smokeless Tobacco: Current Alcohol Use Standard Drinks/Week Comments Never 0 (1 standard drink = 0.6 oz pur e alcohol) Comments Unknown Sex and Gender Information Value Date Recorded Sex Assigned at Female 03/23/2023 2:20 PM EDT Legal Sex Female 1:14 PM EDT Gender Identity Female 03/23/2023 1:26 PM EDT Sexual Orientation Straight 03/23/2023 2: 20 PM EDT documented as of this encounter Plan of Treatment Upcoming Encounters Date Type Department Care Team (Late st Contact Info) Description 09/25/2024 1:00 PM EDT Office Visit [facility] [address] [place] [address] Dana Renner documented as of this encounter Visit Diagnoses Not on filedocumented in this encounter
--- OUTSIDE RECORDS SUMMARY | 2024-06-19 10:55 | XMS_ITS | Encounter Summary ---
Author Organization [employer] Address [address] [place] [address] Care Team Providers Care Dog Catcher Name Role Phone Unavailable Primary Care Provider Unavailabl e Reason for Visit * Reason Onset Date Comments provider change 08/26/2023 Encounter Details Date Type Department Care Team ([facility] st Contact Info) Description 08/26/2023 Telephone [facility] [address] [place] [address] Abdias Sanchez, DMD [address] [place] [address] provider change Social History Tobacco Use Types Packs/Day Years Used Date Smoking Tobacco: Never Smokeless Tobacco: Never Alcohol Use Standard Drinks/Week Comments Never 0 (1 standard drink = 0.6 oz pur e alcohol) Comments Unknown Sex and Gender Information Value Date Recorded Sex Assigned at Female 03/23/2023 2:20 PM EDT Legal Sex Female 1:14 PM EDT Gender Identity Female 03/23/2023 1:26 PM EDT Sexual Orientation Straight 03/23/2023 2: 20 PM EDT documented as of this encounter Miscellaneous Notes * Telephone Encounter - Ayleen Summers - 08/26/2023 11:31 AM EDT Patient has been seen with Dr. Matthews but is looking to have appt changed for Dr. Sanchez. They would like to be seen with him. They also need to rs the appt for either an painting technician 8, 8:30 or 9am or a Tuesday. Pls reach out to patient documented in this encounter Plan of Treatment Upcoming Encounters Date Type Department Care Team (Late st Contact Info) Description 09/25/2024 1:00 PM EDT Office Visit [facility] [address] [place] [address] Dana Renner documented as of this encounter Visit Diagnoses Not on filedocumented in this encounter
--- OUTSIDE RECORDS SUMMARY | 2024-06-19 10:56 | XMS_ITS | Clinical Summary ---
Author Organization [employer] Address [address] [place] [address] Care Team Providers Care Gold Prospector Name Role Phone Unavailable Primary Care Provider Unavailabl e Allergies No known active allergies Medications chlorhexidine (Peridex) 0.12 % solution Please use 15 ml solution twice daily through mouth. Swish for 30 seconds and spit. 120 mL 04/07/2023 Active omeprazole (PriLOSEC) [address] capsule Take 40 mg by mouth in the morning. 06/28/2023 Active Active Problems Problem Noted Date Diagnosed Date Impacted third molar tooth 02/01/2024 Non-restorable tooth 01/03/2024 Dental calculus 08/09/2023 Encounters Date Type Department Care Team Description 03/20/2024 3:00 PM EDT Office Visit [facility] [address] [place] [address] Dana Renner Dental plaque (Primary Dx); Dental calculus; Encounter for dental examination from Last 3 Months Social History Tobacco Use Types Packs/Day Years Used Date Smoking Tobacco: Never Smokeless Tobacco: Never Tobacco Cessation:Counseling Given: Not Answered Alcohol Use Standard Drinks/Week Comments Never 0 (1 standard drink = 0.6 oz pur e alcohol) Comments Unknown Sex and Gender Information Value Date Recorded Sex Assigned at Female 03/23/2023 2:20 PM EDT Legal Sex Female 1:14 PM EDT Gender Identity Female 03/23/2023 1:26 PM EDT Sexual Orientation Straight 03/23/2023 2: 20 PM EDT Last Filed Vital Signs Vital Sign Reading Time Taken Comments Blood Pressure 124/72 03/20/2024 3:00 PM EDT Pulse 72 02/01/2024 8:01 AM EDT Temperature - - Respiratory Rate - - Oxygen Saturation - - Inhaled Oxygen Concentration - - Weight - - Height - - Body Mass Index - - Plan of Treatment Upcoming Encounters Date Type Department Care Team (Late st Contact Info) Description 09/25/2024 1:00 PM EDT Office Visit [facility] [address] [place] [address] Dana Renner Health Maintenance Due Date Last Done Comments CT Colonography 1971 Colonoscopy 1971 Colorectal Cancer Screening 1971 Depression Screening 1971 FIT DNA/Cologuard 1971 FIT 1971 FOBT 1971 HIV Screening 1971 SDOH Screening 1971 Sigmoidoscopy 1971 Alcohol/Substance Use Screening 1983 Family Planning (PISQ) 11/10/1986 Hepatitis C Screening 11/10/1989 Hepatitis B Vaccines (1 of 3 - 19+ 3-dose series) 11/10/1990 Pap Smear 11/10/1992 Cervical Cancer Screening 11/10/2001 HPV/Cotest 11/10/2001 Mammogram 2011 Zoster Vaccines (1 of 2) 11/10/2021 COVID-19 Vaccine ( season) 2024 07/18/2022, 10/05/2021, 09/28/2020, Additional history exists Influenza Vaccine (#1) 2024 3, 03/08/2022, 02/23/2021, Additional history exists Dental Oral Exam 09/19/2024 03/20/2024, 04/07/2023 Dental Prophylaxis 09/19/2024 03/20/2024, 08/09/2023 Tobacco Screening 03/20/2025 03/20/2024 Dental X-Ray: Bitewings 03/21/2025 03/20/20 24, 01/24/2024, 09/15/2023, Additional history exists Dental X-Ray: Full Mouth 04/08/2026 04/07/2023 DTaP/Tdap/Td Vaccines (2 - Td or Tdap) 06/25/2029 06/25/2019 RSV Patients and Patients Aged 60 years or older (1 - 1-dose 75+ series) 11/10/2046 HIB Vaccines Aged Out No longer eligi ble based on patient's age to complete this topic HPV Vaccines Aged Out No longer eligi ble based on patient's age to complete this topic Hepatitis A Vaccines Aged Out No long er eligible based on patient's age to complete this topic IPV Vaccines Aged Out No longer eligi ble based on patient's age to complete this topic Meningococcal Vaccine Aged Out No rosalva stone eligible based on patient's age to complete this topic Pneumococcal Vaccine: Pediatrics (0 to 5 Years) and At-Risk Patients (6 to 64 Years) Aged Out No longer eligible based on patient's age to complete this topic RSV under 20 months Aged Out No longe r eligible based on patient's age to complete this topic Rotavirus Vaccines Aged Out No longer eligible based on patient's age to complete this topic Procedures Procedure Name Priority Date/Time Associated Diagnosis Comments COMPREHENSIVE PERIODONTAL EVALUATION - NEW OR ESTABLISHED PATIENT Routine 03/20/2024 3:00 PM EDT Dental plaque Dental calculus Encounter for dental examination PERIODIC ORAL EVALUATION - ESTABLISHED PATIENT Routine 03/20/2024 3:00 PM EDT Dental plaque Dental calculus Encounter for dental examination BITEWINGS - 4 RADIOGRAPHIC IMAGES Routine 03/20/2024 3:00 PM EDT ORAL HYGIENE INSTRUCTIONS Routine 2023 3:00 PM EDT Dental plaque Dental calculus PROPHYLAXIS - ADULT Routine 03/20/2024 3 :00 PM EDT Dental plaque Dental calculus ADJUNCTIVE GENERAL SERVICES - PROFESSIONAL VISITS - CASE PRESENTATION, SUBSEQUENT TO DETAILED AND EXTENSIVE TREATMENT PLANNING Routine 03/20/2024 3:00 PM EDT DIAGNOSTIC - DIAGNOSTIC IMAGING - INTRAORAL - COMPREHENSIVE SERIES OF RADIOGRAPHIC IMAGES Routine 04/07/2023 8:00 AM EST from Last 3 Months or Most Recently Relevant to Health Maintenance Insurance DENTAL - HSN FULL (MEDICAID)
== END 2024-06-19 10:06 | disposition home or self-care (01) ==
LOC: HO.XRAY 10:05
PROVIDERS: PCP Internal Medicine; Visit Provider Student in an Organized Health Care Education/Training Program
DX: M25.561 Pain in right knee (principal); M25.562 Pain in left knee; M25.511 Pain in right shoulder; M25.512 Pain in left shoulder; M25.521 Pain in right elbow
CPT/HCPCS: 73030; 73080; 73564

== ENCOUNTER → 2024-06-19 10:11 | Outpatient (BNV) | payer OTHER, SELFPAY | PROVIDERS: PCP Internal Medicine; Visit Provider Radiology Diagnostic Radiology | DX: M25.561 Pain in right knee (principal); M25.562 Pain in left knee; M25.512 Pain in left shoulder; M25.511 Pain in right shoulder; M25.521 Pain in right elbow | CPT/HCPCS: 73030; 73080; 73564 ==

== ENCOUNTER 2024-07-10 15:29 | Outpatient (AMB) | payer OTHER, SELFPAY ==
[2024-07-10 15:31] VITALS: BP 122/80; PULSE 74; O2SAT 97; BMI 26.8
--- NOTE | 2024-07-10 15:31 | MHC.PC.OV ---
Vital Signs 07/10/24 15:31 Height 5 ft 6 in Weight 166 lb 4 oz BMI 26.8 BP 122/80 Blood Pressure Location Lt brachial Position Sitting Pulse 74 Pulse Source Pulse Oximeter Pulse Oximetry (%) 97 Oxygen Delivery Method Room Air Intake Visit Reasons: 4 month f/u Music Supervisor Required: No Accompanied by: Self / Same As Patient Allergies No Known Allergies [No Known Allergies*] Allergy (Verified 07/10/24 16:35) Medication List - Last Reconciled 07/10/24 by Tej Lanza MD meloxicam 7.5 mg PO DAILY PRN bamhanyz-jrt-ocjwdmj sulfate 4.5 mg iron (One Daily Multivitamins with Minerals) 1 tab PO DAILY omega-3 fatty acids 500 mg PO DAILY omeprazole 40 mg PO DAILY 90 days Tobacco use date assessed: 07/10/24 Dental Screening Dental Screen Date: 07/10/24 Did you have a dental visit in the last 12 months?: No Did you have a dental problem in the last 6 months where you did not have access to dental care?: No Was dental information given to patient?: Patient has dentist HPI 4 month f/u HPI Details Patient comes in today for follow-up visit States that she feels okay She denies any headaches or dizziness Denies any chest pains, no shortness of breath No nausea/vomiting, no abdominal pain No change in bowel habits noted She was not able to get her follow-up labs done prior to her appointment today She was also seen by rheumatology a few weeks ago and was advised that she does not have any signs or symptoms of inflammatory joint disease and that her joint pains are most likely due to tendinitis or bursitis She also has some symptoms suggestive of early osteoarthritis changes as well, especially in her hands and fingers She was prescribed some meloxicam to take as needed for pain but patient states that she has not started taking it yet as she recalls being advised to take it only when needed [facility] Medical History Alpha thalassemia Pure hypercholesterolemia Overweight (BMI 25.0-29.9) Helicobacter pylori gastritis Constipation Impaired fasting glucose Iron deficiency anemia Mammogram normal (~06/2019) Uterine myoma Amenorrhea Surgical History History of esophagogastroduodenoscopy (EGD) Hx of colonoscopy Hx of myomectomy (~2014) Family History Brother Colon cancer Other No significant family history Social History Household Members Other:: Housing: House Alcohol intake: never Patient Tobacco Use Status: Never used Tobacco e-Cigarette/Vaping Use: Never Used Second Hand Smoke Exposure: No service: No Current occupational status: employed 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 1. Little interest or pleasure in doing things: not at all 2. Feeling down, depressed, or hopeless: not at all 3. Trouble falling or staying asleep, or sleeping too much: not at all 4. Feeling tired or having little energy: not at all 5. Poor appetite or overeating: nearly every day 6. Feeling bad about yourself - or that you are a failure or have let yourself or your family down: not at all 7. Trouble concentrating on things, such as reading the newspaper or watching television: not at all 8. Moving or speaking so slowly that other people could have noticed. Or the opposite - being so fidgety or restless that you have been moving around a lot more than usual: not at all 9. Thoughts that you would be better off or of hurting yourself in some way: not at all Total score: 3 Depression Screening Interpretation: Negative Depression Screening Done: Yes 01972 - PHQ-9 Billing: Yes Source: Developed by Drs. Collin Mireles, Nini Hammer, Rodney Hollingsworth and colleagues, with an educational alma from [employer]. Thrive Questionnaire Date Thrive assessed: 07/10/24 I am a: Patient What is your living situation today?: I have a steady place to live Within the past 12 months, did the food you bought not last and you didn't have the money to get more?: Never true Within the past 12 months, did you worry whether your food would run out before you got money to buy more?: Never true Do you have trouble paying for medicines?: Yes Do you have trouble getting transportation to medical appointments?: No Do you have trouble paying your heating and electricity bill?: Yes Do you have trouble taking care of your child, family member or friend?: No Do you have trouble with day-to-day activities such as bathing, preparing meals, shopping, managing finances, etc.?: No Are you currently unemployed and looking for a job?: No Are you interested in more education?: Yes Please select the resources that you would like help with: Food, Paying for medicine, Daily support and Job search/training Currently or been in a relationship where the following occur: No concerns reported THRIVE Score: 1 AUDIT C Alcohol Use Questionnaire (AUDIT-C) 1. How often do you have a drink containing alcohol?: Monthly or less 2. How many drinks containing alcohol do you have on a typical day when you are drinking?: 1 or 2 3. How often do you have six or more drinks on one occasion?: Never Total Score: 1 Score Reviewed/Action Taken: Yes SIMIN-7 AMB Questionnaire SIMIN-7 Date SIMIN - 7 assessed: 07/10/24 Feeling nervous, anxious, or on edge: 0 = Not at all Not being able to stop or control worryin = Not at all Worrying too much about different things: 0 = Not at all Trouble relaxin = Not at all Being so restless that it is hard to sit still: 0 = Not at all Becoming easily annoyed or irritable: 0 = Not at all Feeling afraid as if something awful might happen: 0 = Not at all Total SIMIN-7 score (0-4 normal; 5-9 mild; 10-14 moderate; 15-21 severe): 0 Source: Developed by Drs. Collin Mireles, Nini Hammer, Rodney Hollingsworth and colleagues, with an educational alma from [employer]. Review of Systems Const Denies chills, Denies fatigue, Denies fever(s) and Denies headache(s) ENT Denies dysphagia, Denies dizziness, Denies otalgia, Denies headache(s), Denies neck pain, Denies odynophagia and Denies sore throat Card Denies chest pain, Denies irregular heart rhythm, Denies palpitations and Denies dyspnea Resp Denies chest congestion, Denies cough and Denies dyspnea GI Denies abdominal pain (but still has occasional epigastric and abdominal bloating), Reports bloating (occasionally), Denies constipation, Denies dysphagia, Denies heartburn, Denies diarrhea, Denies nausea, Denies odynophagia and Denies vomiting Denies urinary frequency, Denies dysuria and Denies urinary urgency Musc Denies back pain, Denies arthralgias and Denies neck pain Skin/Breast Denies rash Neuro Denies dizziness, Denies headache(s) and Denies paresthesias Psych Denies anxiety and Denies depression Endo Denies fatigue and Denies palpitations Cirilo/Lymph Denies easy bruising Physical exam (Primary Care) Vital Signs: Last Vital Signs Pulse 74 07/10/24 15:31 BP 122/80 07/10/24 15:31 Pulse Ox 97 07/10/24 15:31 Oxygen Delivery Method Room Air 07/10/24 15:31 BMI result Body Mass Index 26.8 Tobacco/Smoking Status: Tobacco use Status Tobacco use date assessed 07/10/24 07/10/24 15:32 Patient Tobacco Use Status Never used Tobacco 07/10/24 15:32 e-Cigarette/Vaping Use Never Used 07/10/24 15:32 PHQ-9: PHQ-9 Score PHQ-9: Total score 3 07/10/24 15:32 Depression Screening Interpretation: Negative Thrive Assessment: Date of Thrive Assessment Date Thrive assessed 07/10/24 07/10/24 15:32 Currently or been in a relationship where the following occur: No concerns reported Const General: no acute distress and alert HENMT Ears: TM's normal bilaterally and EAC's normal Throat: Yes posterior oropharynx normal and Yes tonsils normal (no TP congestion) Neck Neck: Yes supple and No lymphadenopathy Thyroid: Thyroid normal Resp Auscultation: clear to auscultation bilaterally, no rales and no wheezes Cardio Rate: regular rate Rhythm: regular rhythm Heart sounds: no murmurs GI Palpation (GI): Soft to palpation and nontender Auscultation: normal bowel sounds General: Yes no CVA tenderness Back/Spine/Pelvis Back: no CVA tenderness Skin Other: (+) 2 separate slightly raised keratotic and hyperpigmented skin lesions on the middle of her back Rashes: no rashes Extrem General: Yes no clubbing, cyanosis or edema Coding Level of Care Code Est Pt Level 4 (53272) Diagnoses Pure hypercholesterolemia E78.00 Impaired fasting glucose R73.01 Alpha thalassemia D56.0 Helicobacter pylori gastritis K29.70; B96.81 Seasonal allergic rhinitis due to pollen J30.1 Allergic rhinitis trigger: pollen Allergic rhinitis seasonality: seasonal Constipation, unspecified constipation type K59.00 Constipation type: unspecified constipation type Uterine leiomyoma, unspecified location D25.9 Uterine leiomyoma location: unspecified location Paresthesia of hand, bilateral R20.2 NOELLE positive R76.8 Overweight (BMI 25.0-29.9) E66.3 Additional Codes PHQ-9 - 49272 - PHQ-9 Billing: Yes ([id number]) Assessment & Plan Assessment & Plan (1) Pure hypercholesterolemia: Code(s): E78.00 - Pure hypercholesterolemia, unspecified Category: Medical Plan: Patient was not able to get her follow-up labs done prior to her appointment today She is reminded that her cholesterol levels were okay when they were last checked a few months ago but they have increased slightly from previous Reinforced low cholesterol diet Will have patient recheck her labs and fasting lipids in 4 months for follow up - does have patient use her current orders (updated) for her next lab draw (2) Impaired fasting glucose: Code(s): R73.01 - Impaired fasting glucose Category: Medical Plan: Her HgbA1c was at 6.3% on her labs done a few months ago; was previously at 6.4% Her FBS was also elevated at 116 mg/dl on her previous labs Reinforced low calorie/low carb diet and regular exercise Will recheck her HgbA1c and FBS in 4 months for follow up (3) Alpha thalassemia: Code(s): D56.0 - Alpha thalassemia Category: Medical Plan: Her H/H remained normal on her recent labs but her microcytosis and hypochromia persisted Her iron function studies were also normal when checked last year Hgb electrophoresis done in June 2023 revealed microcytosis and NORMAL hemoglobin pattern - this may be seen in iron deficiency and alpha thalassemia and genetic counseling is recommended if appropriate No further intervention or evaluation is needed at this time (4) Helicobacter pylori gastritis: Comment: S/P Tx in October 2022 Code(s): K29.70 - Gastritis, unspecified, without bleeding; B96.81 - Helicobacter pylori [H. pylori] as the cause of diseases classified elsewhere Category: Medical Plan: Patient reports that her abdominal symptoms (pain) have improved with Tx - is S/P Tx for H. pylori in 10/2022 Reinforced dietary restrictions She stopped taking her Omeprazole 40 mg QD for awhile but went back on it when she started experiencing again symptoms of heartburn States that she has been taking her Omeprazole daily for months now stomach overall feels better although she still has occasional epigastric pain and bloating Will try switching her from Omeprazole to Pantoprazole 40 mg QD to see if this will help control her GI symptoms better Follow up with GI as scheduled (5) Allergic rhinitis: Code(s): J30.9 - Allergic rhinitis, unspecified Category: Medical Qualifiers: Allergic rhinitis trigger: pollen Allergic rhinitis seasonality: seasonal Qualified Code(s): J30.1 - Allergic rhinitis due to pollen Plan: Continue OTC Alavert 10 mg QD PRN (6) Constipation: Code(s): K59.00 - Constipation, unspecified Category: Medical Qualifiers: Constipation type: unspecified constipation type Qualified Code(s): K59.00 - Constipation, unspecified Plan: Patient is encouraged again to increase her oral fluids and dietary fiber intake She used to take Miralax 17 gm QD but has not needed to take anything for her bowels lately (7) Uterine myoma: Code(s): D25.9 - Leiomyoma of uterus, unspecified Category: Medical Qualifiers: Uterine leiomyoma location: unspecified location Qualified Code(s): D25.9 - Leiomyoma of uterus, unspecified Plan: Follow-up with gynecology in [place] (per patient's choice) as scheduled (8) Paresthesia of hand, bilateral: Code(s): R20.2 - Paresthesia of skin Category: Medical Plan: EMG and NCV done back on 03/20/2024 revealed (+) 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 and mild bilateral ulnar neuropathy across the cubital tunnel She has been advised to wear wrist braces or splints as needed to help keep her symptoms flaring up but she may need to see orthopedics if her hand and wrist symptoms progress (9) NOELLE positive: Code(s): R76.8 - Other specified abnormal immunological findings in serum Category: Medical Plan: Patient's recent arthralgia work ups came back positive for NOELLE in a homogenous pattern, suggestive of lupus She was referred to rheumatology for further evaluation and management - she was seen a few weeks ago and was advised that she does not have any signs or symptoms of inflammatory joint disease although she appears to have early osteoarthritis as well as tendinitis or bursitis of some joints She was prescribed Meloxicam 7.5 mg QD PRN fpr pain although patient states that she has not needed to take it yet (10) Overweight (BMI 25.0-29.9): Code(s): E66.3 - Overweight Category: Medical Plan: Reinforced diet/exercise as tolerated/lose weight Plan Follow up in 4 months Medications: New pantoprazole 40 mg PO DAILY 90 days 90 tabs 1RF Discontinued omeprazole Discontinued Reason: Doctor's Order 40 mg PO DAILY 90 days 90 caps 1RF K29.70 - Gastritis, unspecified, without bleeding
--- OUTSIDE RECORDS SUMMARY | 2024-07-10 16:22 | XMS_ITS | Encounter Summary ---
Author Organization [employer] Address [address] [facility] [address] [place] [address] Care Team Providers Care Radar Technician Name Role Phone Unavailable Primary Care Provider Unavailabl e Reason for Visit * Reason Onset Date Comments provider change 08/26/2023 Encounter Details Date Type Department Care Team ([facility] st Contact Info) Description 08/26/2023 Telephone [facility] ADULT DENTAL [address] [place] [address] Abdias Sanchez, DMD [address] [place] [address] provider change Social History Tobacco Use Types [...] to rs the appt for either an motor coach bus driver 8, 8:30 or 9am or a Tuesday. Pls reach out to patient documented in this encounter Plan of Treatment Upcoming Encounters Date Type Department Care Team (Late st Contact Info) Description 09/25/2024 1:00 PM EDT Office Visit [facility] ADULT D[facility] [address] [place] [address] Dana Renner documented as of this encounter Visit Diagnoses Not on filedocumented in this encounter
--- OUTSIDE RECORDS SUMMARY | 2024-07-10 16:22 | XMS_ITS | Encounter Summary ---
Author Organization [employer] [facility] Address [address] [facility] [address] [place] [address] Care Team Providers Care Instrument Technologist Name Role Phone Unavailable Primary Care Provider Unavailabl e Encounter Details Date Type Department Care Team (Late st Contact Info) Description 05/19/2023 Abstract [facility] ADULT DENTAL [address] [place] [address] Honey Kirk [address] [place] [address] Social History Tobacco Use Types Packs/Day Years [...] Description 09/25/2024 1:00 PM EDT Office Visit [facility] ADULT [facility] [address] [place] [address] Dana Renner documented as of this encounter Visit Diagnoses Not on filedocumented in this encounter
--- OUTSIDE RECORDS SUMMARY | 2024-07-10 16:22 | XMS_ITS | Clinical Summary ---
Author Organization [employer] Address [address] [facility] [address] [place] [address] Care Team Providers Care Radiator Specialist Name Role Phone Unavailable Primary Care [...] 02/01/2024 Non-restorable tooth 01/03/2024 Dental calculus 08/09/2023 Social History Tobacco Use Types Packs/Day Years [...] Description 09/25/2024 1:00 PM EDT Office Visit [facility] ADULT [facility] [address] [place] [address] Dana Renner Health Maintenance Due Date Last [...] Cancer Screening 11/10/2001 HPV/Cotest 11/10/2001 Mammogram 2011 Pneumococcal Vaccine: 50+ Years (1 of 1 - PCV) 11/10/2021 Zoster Vaccines (1 of 2) 11/10/2021 COVID-19 Vaccine (5 - season) 2024 07/18/2022, 10/05/2021, 09/28/2020, Additional history exists Influenza Vaccine (#1) 2024 , 03/08/2022, 02/23/2021, Additional history exists Dental Oral [...] Procedure Name Priority Date/Time Associated Diagnosis Comments PROPHYLAXIS - ADULT Routine 03/20/2024 3 :00 PM EDT Dental plaque Dental calculus BITEWINGS - 4 RADIOGRAPHIC IMAGES Routine 03/20/2024 3:00 PM EDT PERIODIC ORAL EVALUATION - ESTABLISHED PATIENT Routine 03/20/2024 3:00 PM EDT Dental plaque Dental calculus Encounter for dental examination INTRAORAL - COMPLETE SERIES OF RADIOGRAPHIC IMAGES Routine 04/07/2023 8:00 AM EST from Last 3 Months or Most Recently Relevant to Health Maintenance Insurance DENTAL - [facility] FULL (MEDICAID)
--- OUTSIDE RECORDS SUMMARY | 2024-07-10 16:22 | XMS_ITS | Clinical Summary ---
Author Organization [facility] Address [address] [place] [address] Care Team Providers Care Credit Analysis Manager Name Role Phone Pcp, No Primary Care [...] age to complete this topic Care Teams Credit Analysis Manager Relationship Specialty Start Date End Date Pcp, No PCP - General General Medicine 07/05/22
== END 2024-07-10 16:48 | disposition home or self-care (01) ==
PROVIDERS: PCP Internal Medicine; Visit Provider Internal Medicine
DX: E78.00 Pure hypercholesterolemia, unspecified (principal); R73.01 Impaired fasting glucose; D56.0 Alpha thalassemia; K29.70 Gastritis, unspecified, without bleeding; B96.81 Helicobacter pylori [H. pylori] as the cause of diseases classified elsewhere; J30.1 Allergic rhinitis due to pollen; K59.00 Constipation, unspecified; D25.9 Leiomyoma of uterus, unspecified; R20.2 Paresthesia of skin; R76.8 Other specified abnormal immunological findings in serum; E66.3 Overweight

== ENCOUNTER → 2024-07-10 15:29 | Outpatient (BNVA) | payer OTHER, SELFPAY | PROVIDERS: PCP Internal Medicine; Visit Provider Internal Medicine | DX: E78.00 Pure hypercholesterolemia, unspecified (principal); R73.01 Impaired fasting glucose; D56.0 Alpha thalassemia; K29.70 Gastritis, unspecified, without bleeding; K59.00 Constipation, unspecified; D25.9 Leiomyoma of uterus, unspecified; R20.2 Paresthesia of skin; R76.8 Other specified abnormal immunological findings in serum; E66.3 Overweight | CPT/HCPCS: 96127; 99212 ==

== ENCOUNTER 2024-10-23 08:26 | Outpatient (AMB) | payer OTHER, SELFPAY ==
--- NOTE | 2024-10-23 08:42 | A.OFFVIS_ITS ---
Vital Signs 10/23/24 08:52 Height 5 ft 6 in Weight 165 lb BMI 26.6 BP 122/78 Intake Visit Reasons: annual/mandarin Flight Data Technician Required: Yes Flight Data Technician Language: Mongolian - Simplified Flight Data Technician Services: Flight Data Technician Present (Gamar) Flight Data Technician Name: Mariia [id number] Information Interpreted: non-clinical only Industrial Aerial Installer: Industrial Aerial Installer Present (Melisa) Accompanied by: Self / Same As Patient Allergies No Known Allergies [No Known Allergies*] Allergy (Verified 10/23/24 08:57) HPI Comments Details: She is a postmenopausal woman presenting for her annual product support rep examination. She is doing well with product support rep concerns: avoids intimacy due to vaginal pain. She denies any discharge or irritation. STI testing offered; she accepts. Attempting to eat a healthy diet with calcium and vitamin D and stays active with exercise. Last pap smear; 2023, negative. Last mammogram; 2023. Colonoscopy is UTD. Denies any family history of breast or ovarian cancer. FH colon cancer-brother. [facility] Medical History Alpha thalassemia Pure hypercholesterolemia Overweight (BMI 25.0-29.9) Helicobacter pylori gastritis Constipation Impaired fasting glucose Iron deficiency anemia Mammogram normal (~06/2019) Uterine myoma Amenorrhea Surgical History History of esophagogastroduodenoscopy (EGD) Hx of colonoscopy Hx of myomectomy (~2014) Family History Brother Colon cancer Other No significant family history Social History Household Members Other:: Housing: House Alcohol intake: never Patient Tobacco Use Status: Never used Tobacco e-Cigarette/Vaping Use: Never Used Second Hand Smoke Exposure: No service: No Current occupational status: employed 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 Current occupational exposures/hazards: No Cognitive needs: No Hearing needs: No Vision needs: Yes Female Reproductive History Menstrual Age of Menarche: 16 control method: none Total pregnancies: 3 Full term: 1 Ab induced: 2 Date of last pap smear: 10/11/23 (negative pap smear, negative hpv ) History of abnormal pap smear: No History of STI: No Date of Mammogram: 11/22/23 (bi rad 1) Review of Systems Const All systems reviewed & are unremarkable except as noted in HPI and below Reports as per HPI Eyes Reports no additional complaints ENT Reports no additional complaints Card Reports no additional complaints Resp Reports no additional complaints GI Reports as per HPI and Reports no additional complaints Reports as per HPI Musc Reports no additional complaints Skin/Breast Reports as per HPI Neuro Reports no additional complaints Psych Reports no additional complaints Endo Reports no additional complaints Cirilo/Lymph Reports no additional complaints Aller/Immun Reports no additional complaints Physical Exam Vital Signs: Last Vital Signs BP 122/78 10/23/24 08:52 BMI result Body Mass Index 26.6 Const General: cooperative, healthy appearing, no acute distress, well developed and alert Orientation/consciousness: patient oriented x3 HEENT Head: Yes normal to inspection Eyes General: appearance normal, both eyes and all related structures Neck Neck: Yes normal visual inspection Thyroid: Thyroid normal Chest Chest palpation & inspection: normal inspection of the chest and other (no puck ering, dimpling, peau de orange, retraction, discharge, masses) Breast/axilla inspection: normal inspection of the breasts Breast/axilla palpation: normal palpation of the breasts Resp Effort & Inspection: normal respiratory effort GI Inspection: Yes normal to inspection Palpation (GI): Soft to palpation Rectal Exam - Female: deferred General: Yes bladder normal to palpation External Female Exam: normal external appearance and normal appearance of the urethra Speculum Exam - Vagina: normal appearance of the vagina, normal palpation and normal vaginal discharge Speculum Exam - Cervix: normal appearance of the cervix and normal palpation Bimanual exam- vagina & uterus: normal bimanual exam, normal palpation, uterine size normal, bladder normal to palpation, normal palpation and non-tender Bimanual Exam- Adnexa, other: no masses Skin General skin exam: no rashes or lesions noted Rashes: no rashes Neuro General: patient oriented x3 Cognition (Neuro): normal cognition Extrem General: Yes normal to inspection Psych Attitude: cooperative Thought process: Normal thought process present Assessment & Plan Assessment & Plan (1) Encounter for well woman exam with routine gynecological exam: Code(s): Z01.419 - Encounter for gynecological examination (general) (routine) without abnormal findings Category: Medical Plan Discussed: Current recommendations for pap smears per ASCCP guidelines. Breast awareness, periodic self breast exams and yearly mammogram. Maintain a healthy lifestyle, well balanced diet including Calcium 1,200 mg and Vitamin D 600 IU daily, and routine exercise. Replens vaginal moisturizers reviewed use, if not helpful after 3 months to return to the office for consult regarding vaginal estrogen therapy. BV panel and GC chlamydia obtained await results for plan of care. Contact the office with any postmenopausal bleeding. Patient verbalizes understanding and agrees to the plan of care. She was given opportunity to ask questions and all questions were answered to the best of my ability. RTO in 1 year for annual product support rep exam. This note is constructed using voice recognition software. While every effort has been made to ensure accuracy, instructor military science errors may have been included. Orders: Orders CT NG by PCR Today Z01.419 - Encounter for gynecological examination (general) (routine) without abnormal findings Bacterial Vaginosis Panel Today Z01.419 - Encounter for gynecological examination (general) (routine) without abnormal findings Coding Level of Care Code Est Pt Prev Care 40-64y(77819) Diagnoses Encounter for well woman exam with routine gynecological exam Z01.419
[2024-10-23 08:52] VITALS: BP 122/78; BMI 26.6
== END 2024-10-23 09:12 | disposition home or self-care (01) ==
LOC: HO.HWS 08:26
PROVIDERS: PCP Internal Medicine; Visit Provider Advanced Practice Midwife
DX: Z01.419 Encounter for gynecological examination (general) (routine) without abnormal findings (principal)
CPT/HCPCS: 99396; 99459

== ENCOUNTER 2024-10-23 08:26 | Outpatient (REF) | payer OTHER, SELFPAY ==
[2024-10-23 13:34] LABS: Bacterial Vaginosis PCR NEGATIVE (Negative); Candida Group PCR NOT DETECTED (Not Detect); Candida glab krusei PCR NOT DETECTED (Not Detect); Trichomonas vaginalis PCR NOT DETECTED (Not Detect)
[2024-10-23 14:03] LABS: CT PCR NOT DETECTED (Not Detect.); NG PCR NOT DETECTED (Not Detect.)
== END 2024-10-23 08:27 | disposition home or self-care (01) ==
LOC: HO.LNP 08:26
PROVIDERS: PCP Internal Medicine; Visit Provider Advanced Practice Midwife
DX: Z01.419 Encounter for gynecological examination (general) (routine) without abnormal findings (principal)
CPT/HCPCS: 81515; 87491; 87591; 99396; 99459

== ENCOUNTER 2024-11-02 09:27 | Outpatient (REF) | payer OTHER, SELFPAY ==
--- NOTE | ~2024-11-02 | XR_ITS ---
EXAMINATION: XR HIP 2 OR MORE VIEWS RIGHT HISTORY: M25.551 - Pain in right hip COMPARISON: There are no prior studies available for comparison. FINDINGS: Two views of the right hip are submitted. Osseous mineralization is normal. There is no fracture or dislocation. The joint space is maintained. The soft tissues are unremarkable. XR/XR hip RT min 2V IMPRESSION: Unremarkable examination of the right hip. Electronically signed by: Collin Mills MD 11/02/2024 11:33 AM EDT
--- NOTE | ~2024-11-02 | XR_ITS ---
EXAMINATION: XR KNEE 1-2 VIEWS RIGHT HISTORY: M25.569 - Pain in unspecified knee COMPARISON: Comparison is made with the prior examination dated 06/11/2024. FINDINGS: AP and lateral views of the right knee are submitted. Osseous mineralization is normal. There is no fracture or dislocation. The joint spaces are preserved. There is a small to moderate joint effusion. XR/XR knee RT 2V IMPRESSION: Small to moderate joint effusion. Otherwise unremarkable examination of the right knee. Electronically signed by: Collin Mills MD 11/02/2024 11:35 AM EDT
[2024-11-02 10:42] LABS: MANUAL DIFF FLAG NO
[2024-11-02 12:25] LABS: Basophils Percent Auto 0.8 % (0-2); Eosinophils Absolute Auto 0.3 X10*3/uL (0.0-0.4); Eosinophils Percent Auto 8.1 % (0-4); Hematocrit 40.8 % (37.0-47.0); Hemoglobin 12.4 g/dl (12.0-16.0); Imm Gran Abs Auto 0.01 X10*3/uL (0.00-0.03); Imm Gran Pct Auto 0.3 % (0.0-0.4); Lymphocytes Absolute Auto 1.1 X10*3/uL (1.2-4.9); Lymphocytes Percent Auto 29.1 % (20-40); Mean Corpuscular HGB Conc 30.4 g/dl (31.0-35.0); Mean Corpuscular Hemoglobin 20.6 pg (27.0-33.0); Mean Corpuscular Volume 67.8 fL (80.0-98.0); Monocytes Absolute Auto 0.3 X10*3/uL (0.1-1.2); Monocytes Percent Auto 7.1 % (2-11); Neutrophils Absolute Auto 2.1 x10*3/uL (2.0-8.3); Neutrophils Percent Auto 54.6 % (45-73); Platelet Count 271 X10*3/uL (160-400); Red Blood Count 6.02 X10*6/uL (4.20-5.50); White Blood Count 3.8 X10*3/uL (4.8-10.8)
[2024-11-02 12:28] LABS: Estimated Average Glucose 137 mg/dL; Hemoglobin A1c % 6.4 % (<6.0)
[2024-11-02 12:55] LABS: Uric Acid 4.8 mg/dL (2.4-5.7)
[2024-11-02 13:04] LABS: Alanine Aminotransferase 30 U/L (0-31); Albumin Level 4.5 g/dL (3.5-5.0); Alkaline Phosphatase 82 U/L (39-117); Anion Gap 12 (12-20); Aspartate Amino Transferase 29 U/L (5-31); Bilirubin Total 0.3 mg/dL (0.0-1.0); Blood Urea Nitrogen 12 mg/dL (9-16); Calcium 9.3 mg/dL (8.4-10.2); Carbon Dioxide 28 mmol/L (22-29); Chloride 109 mmol/L (96-108); Cholesterol 182 mg/dL (<200); Estimated Glomerular Filt Rate > 60; Glucose Fasting 110 mg/dL (60-99); HDL Cholesterol 53 mg/dL (>40); LDL Cholesterol Calculated 113 mg/dL (<100); Potassium 4.9 mmol/L (3.3-5.1); Sodium 144 mmol/L (135-145); Total Protein 7.4 g/dL (6.5-8.0); Triglycerides 80 mg/dL (<150)
[2024-11-02 13:10] LABS: Ferritin 49 ng/mL (10-250); TSH reflex Free T4 0.58 uIU/mL (0.32-4.0)
[2024-11-02 13:24] LABS: Appearance Urine Clear; Color Urine Yellow; Glucose Urine UA Negative (Negative); Leukocyte Esterase Urine Moderate (2+) (Negative); Nitrite Urine Negative (Negative); Specific Gravity - Urine <= 1.005 (1.005-1.025); UMIC TRIGGER UACC YES; Urine Blood Negative (Negative); Urine Ketones Negative (Negative); Urine Protein Negative (Neg-Trace)
[2024-11-02 14:04] LABS: Bacteria Urine None Seen (None Seen); Hyaline Casts Urine 0-2 /LPF (0-2); RBC Urine 0-2 /HPF (0-2); Squamous Epithelial Cell Urine 0-2 /HPF (0-2); UACC Culture Trigger YES; WBC Urine 0-5 /HPF (0-5)
== END 2024-11-02 09:28 | disposition home or self-care (01) ==
LOC: HO.LAB 09:27
PROVIDERS: Absent Provider Internal Medicine; PCP Internal Medicine
DX: M25.551 Pain in right hip (principal); M25.561 Pain in right knee; E78.00 Pure hypercholesterolemia, unspecified; R73.01 Impaired fasting glucose; R79.89 Other specified abnormal findings of blood chemistry; D56.0 Alpha thalassemia
CPT/HCPCS: 36415; 73502; 73560; 80053; 80061; 81001; 81003; 82728; 83036; 84443; 84550; 85025; 87086; 99212

== ENCOUNTER 2024-11-02 09:27 | Outpatient (AMB) | payer OTHER, SELFPAY ==
--- NOTE | 2024-11-02 09:41 | MHC.PC.OV ---
Vital Signs 11/02/24 09:42 Height 5 ft 6 in Weight 167 lb 2 oz BMI 27.0 BP 130/84 Blood Pressure Location Lt brachial Position Sitting Pulse 73 Pulse Source Pulse Oximeter Temp 96.9 F Temp Source Temporal Artery Scan Pulse Oximetry (%) 97 Oxygen Delivery Method Room Air Intake Visit Reasons: possible gout flare Intake Note: Patient is here to follow up on Possible Gout flare in right knee and pain radiates up to the hip . Photo Editor Required: Yes Photo Editor Language: Cantonese Congolese Information Interpreted: non-clinical & clinical Concession Stand Attendant: Present Accompanied by: Spouse Allergies No Known Allergies [No Known Allergies*] Allergy (Verified 11/02/24 09:45) Medication List - Last Reconciled 11/02/24 by Sonja Funez PA-C meloxicam 7.5 mg PO DAILY PRN szilinoj-xlu-wnrfutk sulfate 4.5 mg iron (One Daily Multivitamins with Minerals) 1 tab PO DAILY omega-3 fatty acids 500 mg PO DAILY pantoprazole 40 mg PO DAILY 90 days Tobacco use date assessed: 11/02/24 Dental Screening Dental Screen Date: 07/10/24 HPI possible gout flare HPI Details 53-year-old female with past medical history of impaired glucose tolerance, anemia, hypercholesterolemia and alpha thalassemia we will last seen 06/2024 coming in for acute problem.? Congolese Cantonese intepreter was used for the duration of this visit Agnes [id number]. Presenting with right knee pain. The pain began a week ago and has progressively worsened, becoming severe enough to prevent work activities. Patient reports no history of gout. The patient has been using heat pads and medicated oil to alleviate symptoms, with limited success. There is no recent history of injury or increased physical activity that could account for the pain. The patient also reports bilateral knee warmth and swelling, with the right knee being more symptomatic. The patient experiences dull pain extending to the lower back when walking, and occasional hip pain at night. [facility] Medical History Alpha thalassemia Pure hypercholesterolemia Overweight (BMI 25.0-29.9) Helicobacter pylori gastritis Constipation Impaired fasting glucose Iron deficiency anemia Mammogram normal (~06/2019) Uterine myoma Amenorrhea Surgical History History of esophagogastroduodenoscopy (EGD) Hx of colonoscopy Hx of myomectomy (~2014) Family History Brother Colon cancer Other No significant family history Social History Household Members Other:: Housing: House Alcohol intake: never Patient Tobacco Use Status: Never used Tobacco e-Cigarette/Vaping Use: Never Used Second Hand Smoke Exposure: No service: No Current occupational status: employed 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 1. Little interest or pleasure in doing things: not at all 2. Feeling down, depressed, or hopeless: not at all 3. Trouble falling or staying asleep, or sleeping too much: not at all 4. Feeling tired or having little energy: not at all 5. Poor appetite or overeating: not at all 6. Feeling bad about yourself - or that you are a failure or have let yourself or your family down: not at all 7. Trouble concentrating on things, such as reading the newspaper or watching television: not at all 8. Moving or speaking so slowly that other people could have noticed. Or the opposite - being so fidgety or restless that you have been moving around a lot more than usual: not at all 9. Thoughts that you would be better off or of hurting yourself in some way: not at all Total score: 0 Depression Screening Interpretation: Negative Depression Screening Done: Yes Source: Developed by Drs. Collin Mireles, Nini Hammer, Rodney Hollingsworth and colleagues, with an educational alma from [employer]. Thrive Questionnaire Date Thrive assessed: 11/02/24 I am a: Patient What is your living situation today?: I have a steady place to live THRIVE Score: 0 SIMIN-7 AMB Questionnaire SIMIN-7 Date SIMIN - 7 assessed: 07/10/24 Source: Developed by Drs. Collin Mireles, Nini Hammer, Rodney Hollingsworth and colleagues, with an educational alma from [employer]. Review of Systems Const Denies body aches, Denies chills, Denies fever(s) and Denies poor appetite Eyes Reports no additional complaints Card Denies chest pain and Denies dyspnea Resp Denies dyspnea GI Denies nausea and Denies vomiting Musc Reports as per HPI and Denies abnormal gait Skin/Breast Reports system reviewed and no additional complaints, except as documented Neuro Denies abnormal gait Psych Reports no additional complaints Physical exam (Primary Care) Vital Signs: Last Vital Signs Temp 96.9 F 11/02/24 09:42 Pulse 73 11/02/24 09:42 BP 130/84 11/02/24 09:42 Pulse Ox 97 11/02/24 09:42 Oxygen Delivery Method Room Air 11/02/24 09:42 BMI result Body Mass Index 27.0 Tobacco/Smoking Status: Tobacco use Status Tobacco use date assessed 11/02/24 11/02/24 09:44 Patient Tobacco Use Status Never used Tobacco 11/02/24 09:44 e-Cigarette/Vaping Use Never Used 11/02/24 09:44 PHQ-9: PHQ-9 Score PHQ-9: Total score 0 11/02/24 09:56 Depression Screening Interpretation: Negative Thrive Assessment: Date of Thrive Assessment Date Thrive assessed 11/02/24 11/02/24 09:44 Const General: cooperative, healthy appearing, comfortable and no acute distress Orientation/consciousness: patient oriented x3 HENMT Head: Yes normocephalic Ears: hearing grossly normal bilaterally General nose exam: Normal external nose present Eyes General: appearance normal, both eyes and all related structures Conjunctivae: conjunctivae normal Neck Neck: Yes full ROM and Yes no lymphadenopathy Resp Effort & Inspection: normal respiratory effort Auscultation: clear to auscultation bilaterally, no crackles, no rales, no rhonchi and no wheezes Cardio Rate: regular rate Rhythm: regular rhythm Back/Spine/Pelvis Other: No tenderness to palpation over right hip Skin General skin exam: no rashes or lesions noted Neuro General: patient oriented x3 Gait exam (Neuro): Normal gait present Extrem Other: No tenderness to palpation of bilateral knees however there is very mild swelling without overlying erythema or warmth. General: Yes normal to inspection, Yes full ROM and No edema Psych Affect: normal affect Attitude: cooperative Insight: Good insight present (Psych) Judgement: Good judgement present (Psych) Coding Level of Care Code Osvaldo Pt Level 3 (56844) Diagnoses Knee pain M25.569 Right hip pain M25.551 Assessment & Plan Assessment & Plan (1) Knee pain: Code(s): M25.569 - Pain in unspecified knee Category: Medical Plan: The plan includes ordering a knee x-ray and blood work to assess the current condition and rule out other potential causes of the knee pain. The x-ray is to be done urgently to compare with previous imaging from May, and blood work will include uric acid levels to evaluate for gout. If gout is confirmed, treatment will involve a course of steroids and continued use of meloxicam to manage inflammation. In the case of bursitis, management will focus on controlling inflammation with heating pads and meloxicam, with consideration of steroids if necessary. (2) Right hip pain: Code(s): M25.551 - Pain in right hip Category: Medical Plan: Patient complaining of mild right hip pain primarily at night. No tenderness on exam. Plan to obtain x-ray for further evaluation. Plan This note was constructed using voice recognition software. While every effort has been made to ensure accuracy and chemical weigher, still areas may have been included sometimes these areas may affect the content or meeting of the given symptoms. Total time spent caring for the patient today was 20 minutes. This includes time spent before the visit reviewing the chart, time spent during the visit, and time spent after the visit and documentation. Patient was informed and verbally consented to the use of an ambient scribe for clinic note documentation during this visit. Orders: Orders Uric Acid Today M25.569 - Pain in unspecified knee XR knee RT 2V Today M25.569 - Pain in unspecified knee XR hip RT min 2V Today M25.551 - Pain in right hip
[2024-11-02 09:42] VITALS: BP 130/84; PULSE 73; TEMP 36.1; O2SAT 97; BMI 27.0
--- OUTSIDE RECORDS SUMMARY | 2024-11-02 09:52 | XMS_ITS | Encounter Summary ---
Author Organization [employer] Address [address] [place] [address] [address] [place] [address] Care Team Providers Care Regulatory Assistant Name Role Phone Unavailable Primary Care Provider Unavailabl e Reason for Visit * Reason Onset Date Comments provider change 08/26/2023 Encounter Details Date Type Department Care Team ([facility] st Contact Info) Description 08/26/2023 Telephone [facility] [address] [place] [address] Abdias Sanchez, DMD [address] [place] [address] provider change Social History Tobacco Use Types [...] to rs the appt for either an outreach nurse 8, 8:30 or 9am or a Tuesday. Pls reach out to patient documented in this encounter Plan of Treatment Upcoming Encounters Date Type Department Care Team (Late st Contact Info) Description 11/14/2024 8:00 AM EDT Office Visit [facility] [address] [place] [address] Abdias Sanchez, DMD [address] [place] [address] documented as of this encounter Visit Diagnoses Not on filedocumented in this encounter
== END 2024-11-02 10:24 | disposition home or self-care (01) ==
LOC: HO.HMCH 09:28
PROVIDERS: PCP Internal Medicine
DX: M25.569 Pain in unspecified knee (principal); M25.551 Pain in right hip

== ENCOUNTER → 2024-11-02 10:48 | Outpatient (BNV) | payer OTHER, SELFPAY | PROVIDERS: Absent Provider Internal Medicine; PCP Internal Medicine; Visit Provider Radiology Diagnostic Radiology | DX: M25.551 Pain in right hip (principal); M25.461 Effusion, right knee | CPT/HCPCS: 73502; 73560 ==

== ENCOUNTER 2024-11-27 10:37 | Outpatient (REF) | payer OTHER, SELFPAY ==
--- OUTSIDE RECORDS SUMMARY | 2024-11-27 11:33 | XMS_ITS | Clinical Summary ---
Author Organization [facility] Address [address] [place] [address] Care Team Providers Care Multi Sensor Operator Name Role Phone Pcp, No Primary Care Provider Unavailabl e Medications No known medications Active Problems No known active problems Social History Tobacco Use Types Packs/Day Years Used Date Smoking Tobacco: Never Assessed Comments Unknown Sex and Gender Information Value Date Recorded Sex Assigned at Female 07/28/2022 8:25 AM EST Legal Sex Female 2:50 PM EST Gender Identity Female 07/28/2022 8:25 AM EST Sexual Orientation Choose not to disclose 2022 8:25 AM EST Last Filed Vital Signs Vital Sign Reading Time Taken Comments Blood Pressure - - Pulse - - Temperature 36.4 C (97.5 F) 07/27/2022 3:03 PM EST Respiratory Rate - - Oxygen Saturation - - Inhaled Oxygen Concentration - - Weight - - Height - - Body Mass Index - - Plan of Treatment Health Maintenance Due Date Last Done Comments Hepatitis C Virus Screening 1971 HIV Screening 11/10/1984 DTaP/Tdap/Td Vaccines (1 - Tdap) 11/10/1990 Hepatitis B Vaccines (1 of 3 - 19+ 3-dose series) 10/22 Pap Smear (Ages 21-65) 11/10/1992 Mammogram 2011 Colonoscopy 11/10/2016 Pneumococcal Vaccines 50+ (1 of 1 - PCV) 11/10/2021 Zoster (Shingles) Vaccine (1 of 2) 11/10/2021 COVID-19 Vaccine ( - 2023- season) 2024 Influenza Vaccine 12/21/2024 Insurance [facility] Care Teams Multi Sensor Operator Relationship Specialty Start Date End Date Pcp, No PCP - General General Medicine 07/05/22
--- OUTSIDE RECORDS SUMMARY | 2024-11-27 11:33 | XMS_ITS | Encounter Summary ---
Author Organization [employer] Address [address] [place] [address] [address] [place] [address] Care Team Providers Care Motor Vehicle Light Assembler Name Role Phone Unavailable Primary Care Provider Unavailabl e Reason for Visit * Reason Onset Date Comments provider change 08/26/2023 Encounter Details Date Type Department Care Team ([facility] st Contact Info) Description 08/26/2023 Telephone [facility] ADULT D[facility]AL [address] [place] [address] Abdias Sanchez, DMD [address] [place] [address] provider change Social History Tobacco Use Types [...] to rs the appt for either an pipe line gauger 8, 8:30 or 9am or a Tuesday. Pls reach out to patient documented in this encounter Plan of Treatment Upcoming Encounters Date Type Department Care Team (Late st Contact Info) Description 12/06/2024 8:00 AM EDT Office Visit [facility] [address] [place] [address] Abdias Sanchez, AMARIS [address] [place] [address] 05/30/2025 10:00 AM EST Office Visit [facility] [address] [place] [address] April Silver documented as of this encounter Visit Diagnoses Not on filedocumented in this encounter
--- OUTSIDE RECORDS SUMMARY | 2024-11-27 11:34 | XMS_ITS ---
Author Name [facility] Organization Unknown Problems Problem Status Onset Date Problem Type Date of Resoluti on Source Encounter for screening laboratory testing for COVID-19 virus active EncounterDiagnosisAct HHCCT Encounters Encounter Type Encounter Reason Primary Diagnosis Location Date Ambulatory Contact with and (suspected) exposure to covid-19 [facility] 07/27/2022 Care Team Organization Name Specialty Phone Email Start Date End Da ramón [facility] 07/27/2022 07/27/2022 [facility] 07/27/2022
== END 2024-11-27 10:38 | disposition home or self-care (01) ==
LOC: HO.MAMMO 10:37
PROVIDERS: PCP Internal Medicine; Visit Provider Internal Medicine
DX: Z12.31 Encounter for screening mammogram for malignant neoplasm of breast (principal)
CPT/HCPCS: 77063; 77067

== ENCOUNTER → 2024-11-27 10:45 | Outpatient (BNV) | payer OTHER, SELFPAY | PROVIDERS: PCP Internal Medicine; Visit Provider Internal Medicine | DX: Z12.31 Encounter for screening mammogram for malignant neoplasm of breast (principal) | CPT/HCPCS: 77063; 77067 ==

== ENCOUNTER 2024-12-03 09:01 | Outpatient (AMB) | payer OTHER, SELFPAY ==
--- NOTE | 2024-12-03 09:05 | MHC.PC.OV ---
Vital Signs 12/03/24 09:07 Height 5 ft 6 in Weight 166 lb BMI 26.8 BP 118/82 Blood Pressure Location Lt brachial Position Sitting Pulse 69 Pulse Source Pulse Oximeter Pulse Oximetry (%) 96 Oxygen Delivery Method Room Air Intake Visit Reasons: 4mth f/u Intake Note: Patient here for a 4 month follow up Bright Cutter Required: No Accompanied by: Self / Same As Patient Allergies No Known Allergies (No Known Allergies*) Allergy (Verified 12/03/24 09:15) Medication List - Last Reconciled 12/03/24 by Tej Lanza MD meloxicam 7.5 mg PO DAILY PRN pantoprazole 40 mg PO DAILY 90 days Tobacco use date assessed: 11/02/24 Dental Screening Dental Screen Date: 12/03/24 Did you have a dental visit in the last 12 months?: No Did you have a dental problem in the last 6 months where you did not have access to dental care?: No Was dental information given to patient?: Patient has dentist HPI 4mt f/u HPI Details Patient comes in today for follow-up visit States that she feels okay She denies any headaches or dizziness Denies any chest pains, no shortness of breath No nausea/vomiting, no abdominal pain No change in bowel habits noted States that she continues to experience recurrent bilateral knee pains from last month - notes that she often is on her feet all day long at work and also does a lot of walking She had x-rays of the knee done last month and would like to know how her x-rays came out She had her follow up labs done last month - to discuss her results [facility] Medical History Alpha thalassemia Pure hypercholesterolemia Overweight (BMI 25.0-29.9) Helicobacter pylori gastritis Constipation Impaired fasting glucose Iron deficiency anemia Mammogram normal (~06/2019) Uterine myoma Amenorrhea Surgical History History of esophagogastroduodenoscopy (EGD) Hx of colonoscopy Hx of myomectomy (~2014) Family History Brother Colon cancer Other No significant family history Social History Household Members Other:: Housing: House Alcohol intake: never Patient Tobacco Use Status: Never used Tobacco e-Cigarette/Vaping Use: Never Used Second Hand Smoke Exposure: No service: No Current occupational status: employed 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 Depression Screening Interpretation: Negative Depression Screening Done: Yes Source: Developed by Drs. Collin Mireles, Nini Hammer, Rodney Hollingsworth and colleagues, with an educational alma from [employer]. Thrive Questionnaire Date Thrive assessed: 12/03/24 I am a: Patient What is your living situation today?: I have a steady place to live Within the past 12 months, did the food you bought not last and you didn't have the money to get more?: I choose not to answer this question Within the past 12 months, did you worry whether your food would run out before you got money to buy more?: I choose not to answer this question Do you have trouble paying for medicines?: I choose not to answer this question Do you have trouble getting transportation to medical appointments?: I choose not to answer this question Do you have trouble paying your heating and electricity bill?: I choose not to answer this question Do you have trouble taking care of your child, family member or friend?: Yes Do you have trouble with day-to-day activities such as bathing, preparing meals, shopping, managing finances, etc.?: No Are you currently unemployed and looking for a job?: No Are you interested in more education?: I choose not to answer this question Please select the resources that you would like help with: None Currently or been in a relationship where the following occur: No concerns reported THRIVE Score: 0 AUDIT C Alcohol Use Questionnaire (AUDIT-C) 1. How often do you have a drink containing alcohol?: Never Total Score: 0 Score Reviewed/Action Taken: Yes SIMIN-7 AMB Questionnaire SIMIN-7 Date SIMIN - 7 assessed: 12/03/24 Feeling nervous, anxious, or on edge: 0 = Not at all Not being able to stop or control worryin = Not at all Worrying too much about different things: 0 = Not at all Trouble relaxin = Not at all Being so restless that it is hard to sit still: 0 = Not at all Becoming easily annoyed or irritable: 0 = Not at all Feeling afraid as if something awful might happen: 0 = Not at all Total SIMIN-7 score (0-4 normal; 5-9 mild; 10-14 moderate; 15-21 severe): 0 Source: Developed by Drs. Collin Mireles, Nini Hammer, Rodney Hollingsworth and colleagues, with an educational alma from [employer]. Review of Systems Const Denies chills, Denies fatigue, Denies fever(s) and Denies headache(s) ENT Denies dysphagia, Denies dizziness, Denies otalgia, Denies headache(s), Denies neck pain, Denies odynophagia and Denies sore throat Card Denies chest pain, Denies irregular heart rhythm, Denies palpitations and Denies dyspnea Resp Denies chest congestion, Denies cough and Denies dyspnea GI Denies abdominal pain (but still has occasional epigastric and abdominal bloating), Reports bloating (occasionally), Denies constipation, Denies dysphagia, Denies heartburn, Denies diarrhea, Denies nausea, Denies odynophagia and Denies vomiting Denies difficulty voiding, Denies nocturia, Denies dysuria and Denies urinary urgency Musc Denies back pain, Reports arthralgias (on and off in both knees) and Denies neck pain Skin/Breast Denies rash Neuro Denies dizziness, Denies headache(s) and Denies paresthesias Psych Denies anxiety and Denies depression Endo Denies fatigue and Denies palpitations Cirilo/Lymph Denies easy bruising Physical exam (Primary Care) Vital Signs: Last Vital Signs Pulse 69 12/03/24 09:07 BP 118/82 12/03/24 09:07 Pulse Ox 96 12/03/24 09:07 Oxygen Delivery Method Room Air 12/03/24 09:07 BMI result Body Mass Index 26.8 Tobacco/Smoking Status: Tobacco use Status Tobacco use date assessed 11/02/24 12/03/24 09:11 Patient Tobacco Use Status Never used Tobacco 12/03/24 09:11 e-Cigarette/Vaping Use Never Used 12/03/24 09:11 Depression Screening Interpretation: Negative Thrive Assessment: Date of Thrive Assessment Date Thrive assessed 12/03/24 12/03/24 09:11 Currently or been in a relationship where the following occur: No concerns reported Const General: no acute distress and alert HENMT Ears: TM's normal bilaterally and EAC's normal Throat: Yes posterior oropharynx normal and Yes tonsils normal (no TP congestion) Neck Neck: Yes supple and No lymphadenopathy Thyroid: Thyroid normal Resp Auscultation: clear to auscultation bilaterally, no rales and no wheezes Cardio Rate: regular rate Rhythm: regular rhythm Heart sounds: no murmurs GI Palpation (GI): Soft to palpation and nontender Auscultation: normal bowel sounds General: Yes no CVA tenderness Back/Spine/Pelvis Back: no CVA tenderness Skin Rashes: no rashes Extrem General: Yes no clubbing, cyanosis or edema Right lower extremity: knee Details: tenderness (mild) Location: of the pre-patellar area; no swelling Left lower extremity: knee Details: tenderness (mild) Location: of the pre-patellar area; no swelling Results Reviewed Results Reviewed: Laboratory Tests 11/02/24 11/02/24 10:32 10:41 WBC 3.8 L Hgb 12.4 Hct 40.8 Plt Count 271 Sodium 144 Potassium 4.9 Creatinine 0.59 Estimated GFR > 60 Fasting Glucose 110 H Hemoglobin A1c % 6.4 H Uric Acid 4.8 Calcium 9.3 Ferritin 49 AST 29 ALT 30 Triglycerides 80 Cholesterol 182 LDL Cholesterol, Calc 113 H HDL Cholesterol 53 TSH 0.58 Ur Specific Line [place] <= 1.005 Urine Protein Negative Urine Glucose (UA) Negative Urine Blood Negative Urine Nitrite Negative Ur Leukocyte Esterase Moderate (2+) H Coding Level of Care Code Est Pt Level 4 (13934) Diagnoses Pure hypercholesterolemia E78.00 Impaired fasting glucose R73.01 Alpha thalassemia D56.0 Helicobacter pylori gastritis K29.70; B96.81 Seasonal allergic rhinitis due to pollen J30.1 Allergic rhinitis trigger: pollen Allergic rhinitis seasonality: seasonal Constipation, unspecified constipation type K59.00 Constipation type: unspecified constipation type Pain in both knees, unspecified chronicity M25.561; M25.562 Chronicity: unspecified Laterality: bilateral Uterine leiomyoma, unspecified location D25.9 Uterine leiomyoma location: unspecified location Paresthesia of hand, bilateral R20.2 NOELLE positive R76.8 Overweight (BMI 25.0-29.9) E66.3 Assessment & Plan Assessment & Plan (1) Pure hypercholesterolemia: Code(s): E78.00 - Pure hypercholesterolemia, unspecified Category: Medical Plan: Results of her labs done last month reviewed and discussed with patient - she is advised that her cholesterol levels have improved slightly from previous Reinforced low cholesterol diet Will have patient recheck her labs and fasting lipids in 4 months for follow up (2) Impaired fasting glucose: Code(s): R73.01 - Impaired fasting glucose Category: Medical Plan: Her HgbA1c was at 6.4% on her labs done last month; was previously at 6.3% a few months ago Her FBS was also elevated at 110 mg/dl on her recent labs Reinforced low calorie/low carb diet and regular exercise Will recheck her HgbA1c and FBS in 4 months for follow up - she is advised that if her HgbA1c does not improve further over the next few months, she should consider starting on medications to help slow down the progression of her diabetes (3) Alpha thalassemia: Code(s): D56.0 - Alpha thalassemia Category: Medical Plan: Her H/H remained normal on her recent labs but her microcytosis and hypochromia persisted Her iron function studies were also normal when checked last year Hgb electrophoresis done in June 2023 revealed microcytosis and NORMAL hemoglobin pattern - this may be seen in iron deficiency and alpha thalassemia and genetic counseling is recommended if appropriate No further intervention or evaluation is needed at this time (4) Helicobacter pylori gastritis: Comment: S/P Tx in October 2022 Code(s): K29.70 - Gastritis, unspecified, without bleeding; B96.81 - Helicobacter pylori [H. pylori] as the cause of diseases classified elsewhere Category: Medical Plan: Patient reports that her abdominal symptoms (pain) have improved with Tx - is S/P Tx for H. pylori in 10/2022 Reinforced dietary restrictions She stopped taking her Omeprazole 40 mg QD for awhile but went back on it when she started experiencing again symptoms of heartburn States that she has been taking her Omeprazole daily for months now stomach overall feels better although she still has occasional epigastric pain and bloating Will try switching her from Omeprazole to Pantoprazole 40 mg QD to see if this will help control her GI symptoms better Follow up with GI as scheduled (5) Allergic rhinitis: Code(s): J30.9 - Allergic rhinitis, unspecified Category: Medical Qualifiers: Allergic rhinitis trigger: pollen Allergic rhinitis seasonality: seasonal Qualified Code(s): J30.1 - Allergic rhinitis due to pollen Plan: Continue OTC Alavert 10 mg QD PRN (6) Constipation: Code(s): K59.00 - Constipation, unspecified Category: Medical Qualifiers: Constipation type: unspecified constipation type Qualified Code(s): K59.00 - Constipation, unspecified Plan: Patient is encouraged again to increase her oral fluids and dietary fiber intake She used to take Miralax 17 gm QD but has not needed to take anything for her bowels lately (7) Knee pain: Code(s): M25.569 - Pain in unspecified knee Category: Medical Qualifiers: Chronicity: unspecified Laterality: bilateral Qualified Code(s): M25.561 - Pain in right knee; M25.562 - Pain in left knee Plan: Patient reports that she still has on and off knee pains X-rays of the knee done last month revealed only (+) small effusion in the knees; no degenerative changes are noted Have advised patient that her knee symptoms are likely due to her prolonged standing and increased walking as she reports being on her feet all day while she is at work, and that it is likely she is experiencing symptoms due to a combination of bursitis and early OA changes Will consider referral to orthopedics if her knee symptoms persist or progress (8) Uterine myoma: Code(s): D25.9 - Leiomyoma of uterus, unspecified Category: Medical Qualifiers: Uterine leiomyoma location: unspecified location Qualified Code(s): D25.9 - Leiomyoma of uterus, unspecified Plan: Follow-up with gynecology in [place] (per patient's choice) as scheduled (9) Paresthesia of hand, bilateral: Code(s): R20.2 - Paresthesia of skin Category: Medical Plan: EMG and NCV done back on 03/20/2024 revealed (+) 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 and mild bilateral ulnar neuropathy across the cubital tunnel She has been advised to wear wrist braces or splints as needed to help keep her symptoms flaring up but she may need to see orthopedics if her hand and wrist symptoms progress (10) NOELLE positive: Code(s): R76.8 - Other specified abnormal immunological findings in serum Category: Medical Plan: Patient's recent arthralgia work ups came back positive for NOELLE in a homogenous pattern, suggestive of lupus She was referred to rheumatology for further evaluation and management - she was seen a few weeks ago and was advised that she does not have any signs or symptoms of inflammatory joint disease although she appears to have early osteoarthritis as well as tendinitis or bursitis of some joints She was prescribed Meloxicam 7.5 mg QD PRN fpr pain although patient states that she has not needed to take it yet (11) Overweight (BMI 25.0-29.9): Code(s): E66.3 - Overweight Category: Medical Plan: Reinforced diet/exercise as tolerated/lose weight Plan Follow up in 4 months Orders: Orders Hemoglobin A1c 4 Months R73.01 - Impaired fasting glucose Vitamin D 25-OH Total 4 Months E55.9 - Vitamin D deficiency, unspecified, M25.569 - Pain in unspecified knee TSH reflex Free T4 4 Months E78.00 - Pure hypercholesterolemia, unspecified, M25.569 - Pain in unspecified knee Erythrocyte Sedimentation Rate 4 Months M25.569 - Pain in unspecified knee, M79.7 - Fibromyalgia Complete Blood Count Auto Diff 4 Months D64.9 - Anemia, unspecified Comprehensive [place]. Panel Fast 4 Months E78.00 - Pure hypercholesterolemia, unspecified Lipid Panel 4 Months E78.00 - Pure hypercholesterolemia, unspecified UA CC w/rflx Micro + Cult 4 Months M25.569 - Pain in unspecified knee, R30.0 - Dysuria C Reactive Protein 4 Months M25.569 - Pain in unspecified knee
[2024-12-03 09:07] VITALS: BP 118/82; PULSE 69; O2SAT 96; BMI 26.8
--- OUTSIDE RECORDS SUMMARY | 2024-12-03 09:18 | XMS_ITS | Clinical Summary ---
Author Organization [facility] Address [address] [place] [address] Care Team Providers Care [employer] Name Role Phone Pcp, No Primary Care [...] 2023- season) 2024 Influenza Vaccine 12/21/2024 Insurance [facility] [place] [facility] Care Teams [employer] Relationship Specialty Start Date End Date Pcp, No PCP - General General Medicine 07/05/22
--- OUTSIDE RECORDS SUMMARY | 2024-12-03 09:18 | XMS_ITS | Encounter Summary ---
Author Organization [employer] Address [address] [place] [address] [address] [place] [address] Care Team Providers Care Aoc Operations Intelligence Officer Name Role Phone Unavailable Primary Care Provider Unavailabl e Reason for Visit * Reason Onset Date Comments provider change 08/26/2023 Encounter Details Date Type Department Care Team ([facility] st Contact Info) Description 08/26/2023 Telephone [facility] [address] [place] [address] Abdias Sanchez, DMD [address] [place] [address] provider change Social History Tobacco Use Types [...] to rs the appt for either an 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 Pls reach out to patient documented in this encounter Plan of Treatment Upcoming Encounters Date Type Department Care Team (Late st Contact Info) Description 12/06/2024 8:00 AM EDT Office Visit [facility] [address] [place] [address] Abdias Sanchez, AMARIS [address] [place] [address] 05/30/2025 10:00 AM EST Office Visit [facility] [address] [place] [address] April Silver documented as of this encounter Visit Diagnoses Not on filedocumented in this encounter
== END 2024-12-03 09:41 | disposition home or self-care (01) ==
LOC: HO.HMCH 09:01
PROVIDERS: PCP Internal Medicine; Visit Provider Internal Medicine
DX: E78.00 Pure hypercholesterolemia, unspecified (principal); R73.01 Impaired fasting glucose; D56.0 Alpha thalassemia; K29.70 Gastritis, unspecified, without bleeding; B96.81 Helicobacter pylori [H. pylori] as the cause of diseases classified elsewhere; J30.1 Allergic rhinitis due to pollen; K59.00 Constipation, unspecified; M25.561 Pain in right knee; M25.562 Pain in left knee; D25.9 Leiomyoma of uterus, unspecified; R20.2 Paresthesia of skin; R76.8 Other specified abnormal immunological findings in serum; E66.3 Overweight

== ENCOUNTER → 2024-12-03 09:01 | Outpatient (BNVA) | payer OTHER, SELFPAY | PROVIDERS: PCP Internal Medicine; Visit Provider Internal Medicine | DX: E78.00 Pure hypercholesterolemia, unspecified (principal); R73.01 Impaired fasting glucose; D56.0 Alpha thalassemia; K29.70 Gastritis, unspecified, without bleeding; B96.81 Helicobacter pylori [H. pylori] as the cause of diseases classified elsewhere; J30.1 Allergic rhinitis due to pollen; K59.00 Constipation, unspecified; M25.561 Pain in right knee; M25.562 Pain in left knee; D25.9 Leiomyoma of uterus, unspecified; R20.2 Paresthesia of skin; R76.8 Other specified abnormal immunological findings in serum; E66.3 Overweight; Z68.26 Body mass index [BMI] 26.0-26.9, adult; Z13.39 Encounter for screening examination for other mental health and behavioral disorders | CPT/HCPCS: 99212 ==

== ENCOUNTER 2024-12-25 14:51 | Outpatient (AMB) | payer OTHER, SELFPAY ==
[2024-12-25 14:53] VITALS: BMI 26.8
--- NOTE | 2024-12-25 14:53 | MHC.OFFVIS ---
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 Patient was referred by [facility] Primary Care 11/02/24, at that visit they discussed Possible Gout flare in right knee and pain radiates up to the hip, X ray was done. At today's visit she states that her knee is feeling better but she is still having flair ups. Patient states that for about one month she has had right knee pain that radiates up to her hips, never down to her foot. Patient has attended physical therapy which gave her fairly good relief. She states that at this point her right knee pain appears to be improving. She denies any locking or giving way. Know: NO Hx:NO Senior Cost Analyst Required: Yes Senior Cost Analyst : Language: Cantonese Upper Sorbian. Senior Cost Analyst Required: Yes Senior Cost Analyst Services: Senior Cost Analyst Present Senior Cost Analyst Name: Belkis [id number] Allergies No Known Allergies (No Known Allergies*) Allergy (Verified 12/25/24 15:02) Medication List - Last Reviewed 12/25/24 by Lenora Perez meloxicam 7.5 mg PO DAILY PRN pantoprazole 40 mg PO DAILY 90 days [facility] Medical History Alpha thalassemia Pure hypercholesterolemia Overweight (BMI 25.0-29.9) Helicobacter pylori gastritis Constipation Impaired fasting glucose Iron deficiency anemia Mammogram normal (~06/2019) Uterine myoma Amenorrhea Surgical History History of esophagogastroduodenoscopy (EGD) Hx of colonoscopy Hx of myomectomy (~2014) Family History Brother Colon cancer Other No significant family history Social History Household Members Other:: Housing: House Alcohol intake: never Patient Tobacco Use Status: Never used Tobacco e-Cigarette/Vaping Use: Never Used Second Hand Smoke Exposure: No service: No Current occupational status: employed 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 Smith presents with right knee pain most likely due to early degenerative joint disease. I had a lengthy discussion with the patient regarding the treatment options. At this point the patient's symptoms are tolerable to her. She will continue with her home exercise program. She will follow up with me on an as-needed basis should her symptoms worsen in any way. I spent 20 minutes in reviewing the patient's records and imaging studies, seeing the patient and documenting in the medical record. Coding Level of Care Code New Pt Level 3 (25939) Complex EM visit Add On G2211 Diagnoses Right knee pain M25.561
--- OUTSIDE RECORDS SUMMARY | 2024-12-25 15:24 | XMS_ITS | Clinical Summary ---
Author Organization [facility] Address [address] [address] Phone Care Team Providers Care Desktop Operator Name Role Phone Tej Lanza MD Primary Care Provider [phone] Allergies No known active allergies Medications amoxicillin (AMOXIL) 500 MG capsule TAKE 1 CAPSULE (500 MG) BY MOUTH EVERY 8 HOURS FOR 10 DAYS 02/01/2024 Active ibuprofen (ADVIL,MOTRIN) 800 MG tablet TAKE 1 TABLET (800 MG) BY MOUTH EVERY 6 (SIX) HOURS IF NEEDED FOR MILD PAIN FOR UP TO 10 DAYS. 02/01/2024 Active omeprazole (PRILOSEC) 40 MG capsule Take 1 capsule by mouth every morning. 03/13/2024 Active Active Problems Problem Noted Date Diagnosed Date Vaginal discharge 04/17/2024 Assessment & Plan (04/17/2024 4:26 PM EST): Physiologic discharge on exam Nuswab collected, will follow up and treat as indicated Mixed stress and urge urinary incontinence 04/17 Assessment & Plan (04/17/2024 4:26 PM EST): Patient reports leakage of urine with activity and increased urgency Referral to urogynecology placed for assessment Cervical polyp 03/27/2024 Assessment & Plan (04/17/2024 4:26 PM EST): Patient aware of benign pathology Assessment & Plan (03/27/2024 2:47 PM EST): Approximately 2 cm smooth cervical polyp removed Pathology pending Social History Tobacco Use Types Packs/Day Years Used Date Smoking Tobacco: Never Passive Smoke Exposure: Never Smokeless Tobacco: Never Tobacco Cessation:Counseling Given: Not Answered Alcohol Use Standard Drinks/Week Comments Never 0 (1 standard drink = 0.6 oz pur e alcohol) Education Answer Date Recorded Are you interested in more education? Not on michael e 02/20/2024 Are you concerned about learning? Not on file 02/20/2024 No 02/20/2024 No 02/20/2024 Digital Access Answer Date Recorded No 02/20/2024 No 02/20/2024 Reliable internet access at home? Not on file 02/20/2024 Device with a working camera? Not on file Comments No Sex and Gender Information Value Date Recorded Sex Assigned at Female 03/22/2024 8:22 AM EDT Legal Sex Female 2:52 PM EDT Gender Identity Female 03/22/2024 8:22 AM EDT Sexual Orientation Straight 03/22/2024 8: 22 AM EDT Last Filed Vital Signs Vital Sign Reading Time Taken Comments Blood Pressure 120/76 04/17/2024 11:00 AM EST Pulse - - Temperature - - Respiratory Rate - - Oxygen Saturation - - Inhaled Oxygen Concentration - - Weight 74.4 kg (164 lb) 04/17/2024 11:00 AM EST Height 160 cm (5' 3 ) 04/17/2024 11:00 AM EST Body Mass Index 29.05 04/17/2024 11:00 AM EST Plan of Treatment Health Maintenance Due Date Last Done Comments LIPID PANEL 1971 DEPRESSION SCREENING 1983 HEPATITIS C SCREENING 11/10/1989 HIV ONE-TIME SCREENING (18-65 YEARS) 11/10/1989 PAP SMEAR 11/10/1992 SCREENING FOR DIABETES 11/10/2006 MAMMOGRAM 2011 COLOGUARD 11/10/2016 COLONOSCOPY 11/10/2016 COLORECTAL CANCER SCREENING 11/10/2016 FIT TEST 11/10/2016 FOBT 11/10/2016 SIGMOIDOSCOPY 11/10/2016 VIRTUAL COLONOSCOPY 11/10/2016 PNEUMOCOCCAL VACCINES (50+ years) (1 of 1 - PCV) 11/10/2021 ZOSTER VACCINES (1 of 2) 11/10/2021 COVID-19 VACCINE ( season) 2024 07/18/2022, 10/05/2021, 09/28/2020, Additional history exists Adult Td,Tdap Booster 06/25/2029 06/25/2019 SMOKING STATUS SCREENING (Once After 26 Yrs) Completed 04/17/2024 HEPATITIS A VACCINES Aged Out No long er eligible based on patient's age to complete this topic HIB VACCINES Aged Out No longer eligi ble based on patient's age to complete this topic MENINGOCOCCAL VACCINES (ACWY) Aged Out No longer eligible based on patient's age to complete this topic MENINGOCOCCAL VACCINES (B) Aged Out N o longer eligible based on patient's age to complete this topic Medical Devices Not on file Insurance PCP [employer] [address] [place] [address] PCP [employer] NON NSPG PCP [employer] NON NSPG PCP [employer] NON NSPG PCP [employer] NON NSPG PCP [employer] Care Teams Desktop Operator Relationship Specialty Start Date End Date Tej Lanza MD [address] [place] [address] [place] [address] PCP - General Internal Medicine 02/17/24 Additional Source Comments The information contained in this document represents components of the legal health record. It is not the complete legal health record.[facility]
--- OUTSIDE RECORDS SUMMARY | 2024-12-25 15:24 | XMS_ITS | Clinical Summary ---
Author Organization [facility] Address [address] [place] [address] Care Team Providers Care Road Consultant Name Role Phone Pcp, No Primary Care [...] 2023- season) 2024 Influenza Vaccine 12/21/2024 Insurance [facility] [employer] Care Teams Road Consultant Relationship Specialty Start Date End Date Pcp, No PCP - General General Medicine 07/05/22
== END 2024-12-25 15:13 | disposition home or self-care (01) ==
LOC: HO.HOS 14:52
PROVIDERS: PCP Internal Medicine; Visit Provider Orthopaedic Surgery
DX: M25.561 Pain in right knee (principal)
CPT/HCPCS: 99203

== ENCOUNTER → 2024-12-25 14:51 | Outpatient (BNVA) | payer OTHER, SELFPAY | PROVIDERS: PCP Internal Medicine; Visit Provider Orthopaedic Surgery | DX: M25.561 Pain in right knee (principal) | CPT/HCPCS: 99202 ==

== ENCOUNTER 2025-01-09 08:58 | Outpatient (RCR) | payer OTHER, SELFPAY ==
--- NOTE | 2024-11-20 13:53 | MHC.PT.EP ---
[facility] [place] Office [place] Office [place] Office [address] [phone] F: [phone] F: [phone] F: [phone] F: [phone] Physical Therapy Plan of Care Date of Evaluation: 11/20/24 Date of Surgery: Diagnosis: RIGHT knee effusion (MD Dx) RS Assessment: Dionicio Smith is a pleasant, motivated 54 y.o. female who is referred to PT by Sonja Funez PA-C, with Dx of RIGHT knee effusion. PT diagnosis is questionable Lyme's Disease flare up in knee due to Hx of Lyme's Disease in the past. I contacted her provider via [employer] (acquired by [employer] in 2014) Text and will be sending her for bloodwork to check for this. Patient impairments include pain, swelling, mild weakness. Patient current functional limitations are standing after prolonged sitting, prolonged standing, walking, stair use. Patient will benefit from skilled PT to address aforementioned impairments and functional limitations to meet established goals. Prognosis is questionable based on awaiting bloodwork to determine if pharmaceutical intervention is needed for symptoms. Frequency and Duration: The patient will be seen 1x/week for 4 weeks Short Term Goals: 2 weeks Patient demonstrates consistency and independence with HEP to self manage symptoms. Latin American Studies Professor Goals: 4 weeks Patient presents with increased R knee flexion 130 degrees to restore mobility for sit to stand after prolonged sitting without difficulty. Patient presents with increased R glute med strength 5/5 to ambulate long distances. Treatment Plan: Modalities to reduce pain, spasms and effusion. Manual therapy to restore motion and function. Therapeutic exercise to improve strength and flexibility. Neuromuscular re-education for posture and balance. Therapeutic activities to return to functional activities of daily living. Electronically signed by: Ivis Bishop, PT, DPT Please sign and return to therapist. Thank you for your referral.
--- NOTE | 2025-01-09 13:38 | MHC.PT.DC ---
[facility] [place] Office [place] Office [place] Office [address] Uziel Phan [address] [phone] F: [phone] F: [phone] F: [phone] F: [phone] Physical Therapy Discharge Report Diagnosis: RIGHT knee effusion ( Dx) RS Date of Surgery: Date of Evaluation: 11/20/24 Date of Discharge: 01/09/25 Treatments to Date: 8 Cancellations to Date: No Shows to Date: Discharge Status: Achieved Goals Improved Function Independent with HEP Discharge Summary: Dionicio shows great form with all exercises. She is self directed through table exercises showing great compliance with HEP. She does not c/o any pain with any WBing activities. She is appropriate for discharge today as she has been able to return to her PLOF activities without familiar knee symptoms. Electronically signed by: Ivis Bishop, PT, DPT Please sign and return to therapist. Thank you for your referral.
== END 2025-01-09 13:38 | disposition home or self-care (01) ==
LOC: HO.PT 08:58
PROVIDERS: PCP Internal Medicine
DX: M25.461 Effusion, right knee (principal); M25.561 Pain in right knee
CPT/HCPCS: 97110; 97112; 97161; 97530

== ENCOUNTER 2025-04-09 09:48 | Outpatient (REF) | payer OTHER, SELFPAY ==
[2025-04-09 10:05] LABS: MANUAL DIFF FLAG NO
[2025-04-09 10:39] LABS: Hematocrit 41.0 % (37.0-47.0); Hemoglobin 12.3 g/dl (12.0-16.0); Imm Gran Abs Auto 0.01 X10*3/uL (0.00-0.03); Imm Gran Pct Auto 0.2 % (0.0-0.4); Lymphocytes Absolute Auto 1.3 X10*3/uL (1.2-4.9); Mean Corpuscular HGB Conc 30.0 g/dl (31.0-35.0); Mean Corpuscular Hemoglobin 20.3 pg (27.0-33.0); Mean Corpuscular Volume 67.8 fL (80.0-98.0); NRBC Abs Auto 0.000 X10*3/uL (0.0-0.012); NRBC Pct Auto 0.0 /100WBC (0.0-0.2); Platelet Count 289 X10*3/uL (160-400); Red Blood Count 6.05 X10*6/uL (4.20-5.50); White Blood Count 4.5 X10*3/uL (4.8-10.8)
[2025-04-09 10:56] LABS: Appearance Urine Clear; Glucose Urine UA Negative (Negative); PH 7.5 (5.0-9.0); Specific Gravity - Urine 1.010 (1.005-1.025); UMIC TRIGGER UACC YES
[2025-04-09 11:16] LABS: Alanine Aminotransferase 24 U/L (0-31); Albumin Level 4.6 g/dL (3.5-5.0); Alkaline Phosphatase 94 U/L (39-117); Anion Gap 11 (12-20); Aspartate Amino Transferase 22 U/L (5-31); Blood Urea Nitrogen 11 mg/dL (9-16); Calcium 9.2 mg/dL (8.4-10.2); Carbon Dioxide 27 mmol/L (22-29); Chloride 109 mmol/L (96-108); Cholesterol 208 mg/dL (<200); Estimated Glomerular Filt Rate > 60; HDL Cholesterol 53 mg/dL (>40); Potassium 3.8 mmol/L (3.3-5.1); Sodium 143 mmol/L (135-145); Total Protein 7.6 g/dL (6.5-8.0); Triglycerides 102 mg/dL (<150)
[2025-04-09 11:19] LABS: UACC Culture Trigger YES
== END 2025-04-09 09:49 | disposition home or self-care (01) ==
LOC: HO.LAB 09:48
PROVIDERS: PCP Internal Medicine; Visit Provider Internal Medicine
DX: R73.01 Impaired fasting glucose (principal); M79.7 Fibromyalgia; D64.9 Anemia, unspecified; M25.569 Pain in unspecified knee; E78.00 Pure hypercholesterolemia, unspecified; E55.9 Vitamin D deficiency, unspecified
CPT/HCPCS: 36415; 80053; 80061; 81001; 82306; 83036; 84443; 85025; 85652; 86140; 87086

== ENCOUNTER 2025-04-16 09:30 | Outpatient (AMB) | payer OTHER, SELFPAY ==
--- NOTE | 2025-04-16 09:43 | A.OFFPC_ITS ---
Vital Signs 04/16/25 09:46 Height 5 ft 6 in Weight 165 lb BMI 26.6 BP 120/76 Blood Pressure Location Lt brachial Position Sitting Pulse 66 Pulse Source Pulse Oximeter Temp 97.1 F Temp Source Temporal Artery Scan Pulse Oximetry (%) 98 Oxygen Delivery Method Room Air Intake Visit Reasons: hyperlipidemia, IFG, alpha thalassemia, GERD Patient Financial Coordinator Required: No Accompanied by: Self / Same As Patient Allergies No Known Allergies (No Known Allergies*) Allergy (Verified 04/16/25 10:26) Medication List - Last Reconciled 04/16/25 by Tej Lanza MD pantoprazole 40 mg PO DAILY 90 days Tobacco use date assessed: 04/16/25 Dental Screening Dental Screen Date: 04/16/25 Did you have a dental visit in the last 12 months?: Yes Did you have a dental problem in the last 6 months where you did not have access to dental care?: No HPI hyperlipidemia, IFG, alpha thalassemia, GERD HPI Details Patient comes in today for her follow up visit States that she has been experiencing increased pain in her left shoulder often for a few months now Notes also (+) some limitation of ROM in her shoulder due to pain - states that she can barely reach behind her with her left arm due to increased pain in her shoulder when she does this She denies any recent injury or trauma to her shoulder Recalls that she was taking Meloxicam 7.5 mg QD PRN that was originally prescr ibed to her by rheumatology and would like to see if she can get this refilled today Of note, she also had shoulder pains when she was seen by rheumatology earlier this year in May 2024 She denies any headaches or dizziness Denies any chest pains, no SOB No nausea/vomiting, no abdominal pain No change in bowel habits noted She had her follow up labs done last week - to discuss her results Adds that her younger sister was recently diagnosed with thyroid cancer in [place] and just had surgery done and she is concerned about her own risks for thyroid cancer [facility] Medical History Alpha thalassemia Pure hypercholesterolemia Overweight (BMI 25.0-29.9) Helicobacter pylori gastritis Constipation Impaired fasting glucose Iron deficiency anemia Mammogram normal (~06/2019) Uterine myoma Amenorrhea Surgical History History of esophagogastroduodenoscopy (EGD) Hx of colonoscopy Hx of myomectomy (~2014) Family History Brother Colon cancer Other No significant family history Social History Household Members Other:: Housing: House Alcohol intake: never Patient Tobacco Use Status: Never used Tobacco e-Cigarette/Vaping Use: Never Used Second Hand Smoke Exposure: No service: No Current occupational status: employed 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 Current occupational exposures/hazards: No Cognitive needs: No Hearing needs: No Vision needs: Yes Female Reproductive History Menstrual Age of Menarche: 16 Questionnaire Thrive Questionnaire Date Thrive assessed: 11/02/24 I am a: Patient What is your living situation today?: I have a steady place to live Within the past 12 months, did the food you bought not last and you didn't have the money to get more?: I choose not to answer this question Within the past 12 months, did you worry whether your food would run out before you got money to buy more?: I choose not to answer this question Do you have trouble paying for medicines?: I choose not to answer this question Do you have trouble getting transportation to medical appointments?: I choose not to answer this question Do you have trouble paying your heating and electricity bill?: I choose not to answer this question Do you have trouble taking care of your child, family member or friend?: Yes Do you have trouble with day-to-day activities such as bathing, preparing meals, shopping, managing finances, etc.?: No Are you currently unemployed and looking for a job?: No Are you interested in more education?: I choose not to answer this question Please select the resources that you would like help with: None Currently or been in a relationship where the following occur: No concerns reported THRIVE Score: 0 SIMIN-7 AMB Questionnaire SIMIN-7 Date SIMIN - 7 assessed: 12/03/24 Source: Developed by Drs. Collin Mireles, Nini Hammer, Rodney Hollingsworth and colleagues, with an educational alma from [employer]. Review of Systems Const Denies chills, Denies fatigue, Denies fever(s) and Denies headache(s) ENT Denies dysphagia, Denies dizziness, Denies otalgia, Denies headache(s), Denies neck pain, Denies odynophagia and Denies sore throat Card Denies chest pain, Denies irregular heart rhythm, Denies palpitations and Denies dyspnea Resp Denies chest congestion, Denies cough and Denies dyspnea GI Denies abdominal pain (but still has occasional epigastric and abdominal bloatin g), Denies constipation, Denies dysphagia, Denies heartburn, Denies diarrhea, Denies nausea, Denies odynophagia and Denies vomiting Denies difficulty voiding, Denies nocturia, Denies dysuria and Denies urinary urgency Musc Denies back pain, Reports arthralgias (on and off in both knees; increased pain in the left shoulder) and Denies neck pain Skin/Breast Denies rash Neuro Denies dizziness, Denies headache(s) and Denies paresthesias Psych Denies anxiety and Denies depression Endo Denies fatigue and Denies palpitations Cirilo/Lymph Denies easy bruising Physical exam (Primary Care) Vital Signs: Last Vital Signs Temp 97.1 F 04/16/25 09:46 Pulse 66 04/16/25 09:46 BP 120/76 04/16/25 09:46 Pulse Ox 98 04/16/25 09:46 Oxygen Delivery Method Room Air 04/16/25 09:46 BMI result Body Mass Index 26.6 Tobacco/Smoking Status: Tobacco use Status Tobacco use date assessed 04/16/25 04/16/25 09:44 Patient Tobacco Use Status Never used Tobacco 04/16/25 09:44 e-Cigarette/Vaping Use Never Used 04/16/25 09:44 Thrive Assessment: Date of Thrive Assessment Date Thrive assessed 11/02/24 04/16/25 09:44 Currently or been in a relationship where the following occur: No concerns reported Const General: no acute distress and alert HENMT Throat: Yes posterior oropharynx normal and Yes tonsils normal (no TP congestion) Neck Neck: Yes supple and No lymphadenopathy Thyroid: diffusely enlarged (thyroid gland appears slightly enlarged/prominent (?) diffusely) and nontender Resp Auscultation: clear to auscultation bilaterally, no rales and no wheezes Cardio Rate: regular rate Rhythm: regular rhythm Heart sounds: no murmurs GI Palpation (GI): Soft to palpation and nontender Auscultation: normal bowel sounds General: Yes no CVA tenderness Back/Spine/Pelvis Back: no CVA tenderness Thoracic/Lumbar Spine: No lumbar spinal tenderness Skin Rashes: no rashes Extrem General: Yes no clubbing, cyanosis or edema Left upper extremity: shoulder/upper arm Details: tenderness Location: of the A- C joint; no swelling Right lower extremity: knee Details: tenderness (mild) Location: of the pre- patellar area; no swelling Left lower extremity: knee Details: tenderness (mild) Location: of the pre- patellar area; no swelling Results Reviewed Results Reviewed: Laboratory Tests 04/09/25 04/09/25 09:56 10:03 WBC 4.5 L Hgb 12.3 Hct 41.0 Plt Count 289 ESR 8 Sodium 143 Potassium 3.8 D Creatinine 0.65 Estimated GFR > 60 Fasting Glucose 109 H Hemoglobin A1c % 6.4 H Calcium 9.2 AST 22 ALT 24 Triglycerides 102 Cholesterol 208 H LDL Cholesterol, Calc 135 H HDL Cholesterol 53 25-OH Vitamin D Total 32.8 TSH 0.66 Ur Specific [place] 1.010 Urine Protein Negative Urine Glucose (UA) Negative Urine Blood Negative Urine Nitrite Negative Ur Leukocyte Esterase Moderate (2+) H Coding Level of Care Code Est Pt Level 4 (73515) Diagnoses Pure hypercholesterolemia E78.00 Impaired fasting glucose R73.01 Alpha thalassemia D56.0 Helicobacter pylori gastritis K29.70; B96.81 Enlarged thyroid E04.9 Seasonal allergic rhinitis due to pollen J30.1 Allergic rhinitis trigger: pollen Allergic rhinitis seasonality: seasonal Constipation, unspecified constipation type K59.00 Constipation type: unspecified constipation type Pain in both knees, unspecified chronicity M25.561; M25.562 Chronicity: unspecified Laterality: bilateral Paresthesia of hand, bilateral R20.2 NOELLE positive R76.8 Left shoulder pain, unspecified chronicity M25.512 Chronicity: unspecified Uterine leiomyoma, unspecified location D25.9 Uterine leiomyoma location: unspecified location Overweight (BMI 25.0-29.9) E66.3 Assessment & Plan Assessment & Plan (1) Pure hypercholesterolemia: Code(s): E78.00 - Pure hypercholesterolemia, unspecified Category: Medical Plan: Results of her labs done last week reviewed and discussed with patient - she is advised that her cholesterol levels have increased again slightly from previous Reinforced low cholesterol diet Will have patient recheck her labs and fasting lipids in 3 to 4 months for follow up (2) Impaired fasting glucose: Code(s): R73.01 - Impaired fasting glucose Category: Medical Plan: Her HgbA1c remains unchanged at 6.4% on her labs done last week; was previously also at 6.4% a few months ago Her FBS was still elevated at 109 mg/dl on her recent labs Reinforced low calorie/low carb diet and regular exercise Will recheck her HgbA1c and FBS in 4 months for follow up - she is advised again that if her HgbA1c does not improve significantly over the next few months, she should consider starting on medications to help slow down the progression of her diabetes (3) Alpha thalassemia: Code(s): D56.0 - Alpha thalassemia Category: Medical Plan: Her H/H remained normal on her recent labs but her microcytosis and hypochromia persisted Her iron function studies were also normal when checked last year Hgb electrophoresis done in June 2023 revealed microcytosis and NORMAL hemoglobin pattern - this may be seen in iron deficiency and alpha thalassemia and genetic counseling is recommended if appropriate No further intervention or evaluation is needed at this time (4) Helicobacter pylori gastritis: Comment: S/P Tx in October 2022 Code(s): K29.70 - Gastritis, unspecified, without bleeding; B96.81 - Helicobacter pylori [H. pylori] as the cause of diseases classified elsewhere Category: Medical Plan: Patient reports that her abdominal symptoms (pain) have improved with Tx - is S/P Tx for H. pylori in 10/2022 Reinforced dietary restrictions Continue Pantoprazole 40 mg QD; her GI symptoms did not improve completely with Omeprazole Follow up with GI as scheduled (5) Enlarged thyroid: Code(s): E04.9 - Nontoxic goiter, unspecified Category: Medical Plan: Her thyroid gland appears slightly more prominent than normal on exam but is non-tender on palpation Her TFTs done last week came out normal Patient reports that her younger sister in [place] was just diagnosed with thyroid cancer recently and she is concerned about her own risks Will send her for thyroid US for further evaluation (6) Allergic rhinitis: Code(s): J30.9 - Allergic rhinitis, unspecified Category: Medical Qualifiers: Allergic rhinitis trigger: pollen Allergic rhinitis seasonality: sea tomas Qualified Code(s): J30.1 - Allergic rhinitis due to pollen Plan: Continue OTC Alavert 10 mg QD PRN (7) Constipation: Code(s): K59.00 - Constipation, unspecified Category: Medical Qualifiers: Constipation type: unspecified constipation type Qualified Code(s): K59.00 - Constipation, unspecified Plan: Patient is encouraged again to increase her oral fluids and dietary fiber intake She used to take Miralax 17 gm QD but has not needed to take anything for her bowels lately (8) Knee pain: Code(s): M25.569 - Pain in unspecified knee Category: Medical Qualifiers: Chronicity: unspecified Laterality: bilateral Qualified Code(s): M25.561 - Pain in right knee; M25.562 - Pain in left knee Plan: Patient reports that she still has on and off knee pains X-rays of the knee done a few months ago revealed only (+) small effusion in the knees; no degenerative changes are noted Have advised patient that her knee symptoms are likely due to her prolonged standing and increased walking as she reports being on her feet all day when she is at work, and that it is likely she is experiencing symptoms due to a combination of bursitis and early OA changes Will consider referral to orthopedics if her knee symptoms persist or progress (9) Paresthesia of hand, bilateral: Code(s): R20.2 - Paresthesia of skin Category: Medical Plan: EMG and NCV done back on 03/20/2024 revealed (+) 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 and mild bilateral ulnar neuropathy across the cubital tunnel She has been advised to wear wrist braces or splints as needed to help keep her symptoms flaring up but she may need to see orthopedics if her hand and wrist symptoms progress (10) NOELLE positive: Code(s): R76.8 - Other specified abnormal immunological findings in serum Category: Medical Plan: Patient's recent arthralgia work ups came back positive for NOELLE in a homogenous pattern, suggestive of lupus She was referred to rheumatology for further evaluation and management - she was seen back in May 2024 and was advised that she does not have any signs or symptoms of inflammatory joint disease although she appears to have early osteoarthritis as well as tendinitis or bursitis of some joints She was prescribed Meloxicam 7.5 mg QD PRN fpr pain and she is requesting to have this refilled today (11) Left shoulder pain: Code(s): M25.512 - Pain in left shoulder Category: Medical Qualifiers: Chronicity: unspecified Qualified Code(s): M25.512 - Pain in left shoulder Plan: X-rays of the left shoulder done back in May 2024 came out normal Have advised patient that her recent increased left shoulder pain is likely due to bursitis/tendinitis Will refer her to physical therapy for further evaluation and management (12) Uterine myoma: Code(s): D25.9 - Leiomyoma of uterus, unspecified Category: Medical Qualifiers: Uterine leiomyoma location: unspecified location Qualified Code(s): D25.9 - Leiomyoma of uterus, unspecified Plan: Follow-up with gynecology in [place] (per patient's choice) as scheduled for continuing management and surveillance (13) Overweight (BMI 25.0-29.9): Code(s): E66.3 - Overweight Category: Medical Plan: Reinforced diet/exercise as tolerated/lose weight Plan To return in July 2025 for her annual physical examination Orders: Orders US thyroid Today E04.9 - Nontoxic goiter, unspecified PT Evaluation and Treatment Today M25.512 - Pain in left shoulder Lipid Panel 08/03/25 E78.00 - Pure hypercholesterolemia, unspecified, Z00.00 - Encounter for general adult medical examination without abnormal findings Complete Blood Count Auto Diff 08/03/25 D64.9 - Anemia, unspecified, Z00.00 - Encounter for general adult medical examination without abnormal findings Comprehensive [place]. Panel Fast 08/03/25 E78.00 - Pure hypercholesterolemia, unspecified, Z00.00 - Encounter for general adult medical examination without abnormal findings Hemoglobin A1c 08/03/25 R73.01 - Impaired fasting glucose, Z00.00 - Encounter for general adult medical examination without abnormal findings TSH reflex Free T4 08/03/25 E78.00 - Pure hypercholesterolemia, unspecified, Z00.00 - Encounter for general adult medical examination without abnormal findings UA CC w/rflx Micro + Cult 08/03/25 R30.0 - Dysuria, Z00.00 - Encounter for general adult medical examination without abnormal findings Vitamin B12 and Folate 08/03/25 E53.8 - Deficiency of other specified B group vitamins, G62.9 - Polyneuropathy, unspecified, Z00.00 - Encounter for general adult medical examination without abnormal findings Vitamin D 25-OH Total 08/03/25 E55.9 - Vitamin D deficiency, unspecified, Z00.00 - Encounter for general adult medical examination without abnormal findings Medications: Changed From meloxicam 7.5 mg PO DAILY PRN 90 tabs 0RF pain To meloxicam Take with food 7.5 mg PO DAILY PRN 90 tabs 0RF pain 90 days
[2025-04-16 09:46] VITALS: BP 120/76; PULSE 66; TEMP 36.2; O2SAT 98; BMI 26.6
--- OUTSIDE RECORDS SUMMARY | 2025-04-16 10:59 | XMS_ITS | Clinical Summary ---
Author Organization [facility] Address [address] [place] [address] [address] [place] [address] Care Team Providers Care Fence Maker Name Role Phone Unavailable Primary Care Provider Unavailabl e Allergies No known active allergies Medications chlorhexidine (Peridex) 0.12 % solution Please use 15 ml solution twice daily through mouth. Swish for 30 seconds and spit. 120 mL 04/07/2023 Active omeprazole (PriLOSEC) [address] capsule Take 40 mg by mouth in the morning. 06/28/2023 Active meloxicam (Mobic) 7.5 MG tablet Take 1 tablet by mouth if needed at bedtime for pain. 06/19/2024 Active Active Problems Problem Noted Date Diagnosed Date Impacted third molar tooth 02/01/2024 Non-restorable tooth 01/03/2024 Dental calculus 08/09/2023 Encounters Date Type Department Care Team Description 01/28/2025 10:30 AM EDT Office Visit [facility] [address] [place] [address] Abdias Sanchez DMD 01/21/2025 Travel 01/16/2025 Telephone [facility] [address] [place] [address] Abdias Sanchez DMD rs 01/25 appt 01/14/2025 8:00 AM EDT Office Visit [facility] [address] [place] [address] Abdias Sanchez DMD from Last 3 Months Social History Tobacco [...] Sign Reading Time Taken Comments Blood Pressure 128/86 01/28/2025 10:35 AM EDT Pulse 70 01/28/2025 10:35 AM EDT Temperature - - Respiratory Rate - - Oxygen Saturation - - Inhaled Oxygen Concentration - - Weight - - Height - - Body Mass Index - - Plan of Treatment Upcoming Encounters Date Type Department Care Team (Late st Contact Info) Description 05/30/2025 10:15 AM EST Office Visit [facility] [address] [place] [address] April Silver Health Maintenance Due Date Last Done Comments CT Colonography 1971 Colonoscopy 1971 Colorectal Cancer Screening 1971 Depression Screening 1971 FIT DNA/Cologuard 1971 FIT 1971 FOBT 1971 HIV Screening 1971 SDOH Screening 1971 Sigmoidoscopy 1971 Disability Screening 1971 Alcohol/Substance Use Screening 1983 Hepatitis C Screening 11/10/1989 Hepatitis B Vaccines (1 of 3 - 19+ 3-dose series) 11/10/1990 Pap Smear 11/10/1992 Cervical Cancer Screening 11/10/2001 HPV/Cotest 11/10/2001 Mammogram 2011 Pneumococcal Vaccine: 50+ Years (1 of 1 - PCV) 11/10/2021 Zoster Vaccines (1 of 2) 11/10/2021 COVID-19 Vaccine ( season) 2025 07/18/2022, 10/05/2021, 09/28/2020, Additional history exists Influenza Vaccine (#1) 2025 , 03/08/2022, 02/23/2021, Additional history exists Dental Prophylaxis 04/26/2025 10/24/2024, 1 , 08/09/2023 Dental Oral Exam 05/17/2025 11/14/2024, , 04/07/2023 Dental X-Ray: Bitewings 11/15/2025 11/15/19, 10/22/2024, 03/20/2024, Additional history exists Tobacco Screening 01/28/2026 01/28/2025 Dental X-Ray: Full Mouth 04/08/2026 04/07/2023 DTaP/Tdap/Td [...] patient's age to complete this topic Meningococcal B Vaccine Aged Out No l onger eligible based on patient's age to complete [...] Procedure Name Priority Date/Time Associated Diagnosis Comments CASE PRESENTATION, DETAILED AND EXTENSIVE TREATMENT PLANNING Routine 01/28/2025 10:30 AM EDT 19,31 MANDIBULAR PARTIAL DENTURE - RESIN BASE (INCLUDING, RETENTIVE/CLASPING MATERIALS, RESTS, AND TEETH) Routine 01/28/2025 10:30 AM EDT WAX TRY IN Routine 01/14/2025 8:00 AM EDT BITEWINGS - 4 RADIOGRAPHIC IMAGES Routine 11/14/2024 8:00 AM EDT PERIODIC ORAL EVALUATION - ESTABLISHED PATIENT Routine 11/14/2024 8:00 AM EDT PROPHYLAXIS - ADULT Routine 10/24/2024 8 :00 AM EDT Dental calculus Dental plaque Staining of teeth INTRAORAL - COMPLETE SERIES OF RADIOGRAPHIC IMAGES Routine 04/07/2023 8:00 AM EST from Last 3 Months or Most Recently Relevant to Health Maintenance Insurance DENTAL - HSN PARTIAL (MEDICAID)
--- OUTSIDE RECORDS SUMMARY | 2025-04-16 10:59 | XMS_ITS | Encounter Summary ---
Author Organization [facility] Address [address] [place] [address] [address] [place] [address] Care Team Providers Care Cloud Operations Engineer Name Role Phone Unavailable Primary Care Provider Unavailabl e Reason for Visit * Reason Onset Date Comments rs 01/25 appt 01/16/2025 Encounter Details Date Type Department Care Team (Late Contact Info) Description 01/16/2025 Telephone [facility] [address] [place] [address] Abdias Sanchez, AMARIS [address] [place] [address] rs 01/25 appt Social History Tobacco Use Types Packs/Day Years [...] * Telephone Encounter - Ayleen Summers - 01/16/2025 12:27 PM EDT Patient would like to rs 01/25 appt for delivery for a Tuesday or Tuesday. Pls reach out to patient for rescheduling DR documented in this encounter Plan of Treatment Upcoming Encounters Date Type Department Care Team (Late Contact Info) Description 05/30/2025 10:15 AM EST Office Visit [facility] [address] [place] [address] April Silver documented as of this encounter Visit Diagnoses Not on filedocumented in this encounter
--- OUTSIDE RECORDS SUMMARY | 2025-04-16 10:59 | XMS_ITS | Clinical Summary ---
Author Organization [facility] Address [address] [place] [phone] Phone Care Team Providers Care Oil Tester Name Role Phone Tej Lanza MD Primary Care Provider [phone] Allergies No known active allergies Medications amoxicillin [...] 11/10/2021 ZOSTER VACCINES (1 of 2) 11/10/2021 INFLUENZA VACCINE (#1) 2024 3, 03/08/2022, 02/23/2021, Additional history exists COVID-19 VACCINE (2024- season) 2025 07/18/2022, 10/05/2021, 09/28/2020, Additional history exists Adult Td,Tdap Booster 06/25/2029 06/25/2019 RSV VACCINE (1 - 1-dose 75+ series) 11/10/2046 SMOKING STATUS SCREENING (Once After 26 Yrs) [...] topic Medical Devices Not on file Insurance [facility] NON NSPG PCP [employer] [facility] NON NSPG PCP [employer] [facility] NON NSPG PCP [employer] [facility] NON NSPG PCP [employer] [facility] NON NSPG PCP [employer] Member Subscriber Plan / Payer (Ef fective 2024-Present) Name:Dionicio Smith Relation to Subscriber:Self Name:Dionicio Smith Payer ID:[id number] Type:O Address: [place] [id number] [facility] NON NSPG PCP [employer] Care Teams Oil Tester Relationship Specialty Start Date End Date Tej Lanza MD [address] [place] [address] [place] [address] PCP - General Internal Medicine 02/17/24 Additional Source Comments The information contained in this document represents components of the legal health record. It is not the complete legal health record.[facility]
--- OUTSIDE RECORDS SUMMARY | 2025-04-16 10:59 | XMS_ITS | Encounter Summary ---
Author Organization [employer] Address [address] [place] [address] [address] [place] [address] Care Team Providers Care Personal Banker Name Role Phone Unavailable Primary Care Provider Unavailabl e Reason for Visit * Reason Onset Date Comments provider change 08/26/2023 Encounter Details Date Type Department Care Team ([facility] st Contact Info) Description 08/26/2023 Telephone [facility]ULT [facility] [address] [place] [address] Abdias Sanchez, DMD [address] [place] [address] provider change Social History Tobacco Use Types [...] to rs the appt for either an health manager 8, 8:30 or 9am or a Tuesday. Pls reach out to patient documented in this encounter Plan of Treatment Upcoming Encounters Date Type Department Care Team (Late st Contact Info) Description 05/30/2025 10:15 AM EST Office Visit [facility] [address] [place] [address] April Silver documented as of this encounter Visit Diagnoses Not on filedocumented in this encounter
--- OUTSIDE RECORDS SUMMARY | 2025-04-16 10:59 | XMS_ITS | Clinical Summary ---
Author Organization [facility] Address [address] [place] [address] Care Team Providers Care Turf Manager Name Role Phone Pcp, No Primary [...] Vaccine (1 of 2) 11/10/2021 Influenza Vaccine 12/21/2024 COVID-19 Vaccine ( - 2023- season) 2025 RSV Vaccine 50 years and old er and Patients (1 - 1-dose 75+ series) 11/10/2046 Insurance [facility] [employer] Care Teams Turf Manager Relationship Specialty Start Date End Date Pcp, No PCP - General General Medicine 07/05/22
--- OUTSIDE RECORDS SUMMARY | 2025-04-16 10:59 | XMS_ITS | Encounter Summary ---
Author Organization [employer] Address [address] [place] [address] [address] [place] [address] Care Team Providers Care Mortar Mixer Name Role Phone Unavailable Primary Care Provider Unavailabl e Encounter Details Date Type Department Care Team (Late st Contact Info) Description 05/19/[address] [facility] [address] [place] [address] Honey Kirk [address] [place] [address] Social History Tobacco Use Types Packs/Day Years [...] Description 05/30/2025 10:15 AM EST Office Visit [facility] [address] [place] [address] April Silver documented as of this encounter Visit Diagnoses Not on filedocumented in this encounter
== END 2025-04-16 10:40 | disposition home or self-care (01) ==
LOC: HO.HMCH 09:31
PROVIDERS: PCP Internal Medicine; Visit Provider Internal Medicine
DX: E78.00 Pure hypercholesterolemia, unspecified (principal); R73.01 Impaired fasting glucose; D56.0 Alpha thalassemia; K29.70 Gastritis, unspecified, without bleeding; B96.81 Helicobacter pylori [H. pylori] as the cause of diseases classified elsewhere; E04.9 Nontoxic goiter, unspecified; J30.1 Allergic rhinitis due to pollen; K59.00 Constipation, unspecified; M25.561 Pain in right knee; M25.562 Pain in left knee; R20.2 Paresthesia of skin; R76.89 Other specified abnormal immunological findings in serum; M25.512 Pain in left shoulder; D25.9 Leiomyoma of uterus, unspecified; E66.3 Overweight

== ENCOUNTER → 2025-04-16 09:30 | Outpatient (BNVA) | payer OTHER, SELFPAY | PROVIDERS: PCP Internal Medicine; Visit Provider Internal Medicine | DX: M25.512 Pain in left shoulder (principal); M25.561 Pain in right knee; M25.562 Pain in left knee; E78.00 Pure hypercholesterolemia, unspecified; R73.01 Impaired fasting glucose; D56.0 Alpha thalassemia; K29.70 Gastritis, unspecified, without bleeding; B96.81 Helicobacter pylori [H. pylori] as the cause of diseases classified elsewhere; E04.9 Nontoxic goiter, unspecified; J30.1 Allergic rhinitis due to pollen; K59.00 Constipation, unspecified; R20.2 Paresthesia of skin; R76.89 Other specified abnormal immunological findings in serum; D52.9 Folate deficiency anemia, unspecified; E66.3 Overweight; Z68.26 Body mass index [BMI] 26.0-26.9, adult | CPT/HCPCS: 99212 ==